=== PATIENT | male | born 1930 | race Caucasian/White ===

== ENCOUNTER 2018-04-13 04:44 | Observation (INO) | payer OTHER ==
--- OUTSIDE RECORDS SUMMARY | 2018-04-13 04:46 | XMS REPORT | Clinical Summary ---
:1930 Author Organization [facility] Address [address] [place] [address] Phone Care Team Providers Name Role Phone Unavailable Primary Care Provider Unavailable Allergies Active Allergy Reactions Severity Noted Date Comments Ciprofloxacin Rash Low 10/06/2016 Codeine Rash Low 10/06/2016 Current Medications Prescription Sig. Disp. Refills Start End Date Status Date simvastatin (ZOCOR) Take 20 mg by Active 20 MG tablet mouth nightly. dextromethorphan-av Take 1 capsule by Active nidine (NUEDEXTA) mouth once in 20-10 mg Cap morning. memantine (NAMENDA Take 1 capsule by Active XR) 28 mg CSpX mouth daily. aspirin 325 MG EC Take 325 mg by Active tablet mouth daily. omega-3 fatty Take 1 capsule by Active acids-vitamin E mouth nightly . 1,000 mg Cap cinnamon bark 500 mg Take 500 mg by Active capsule mouth daily. cholecalciferol Take 1,000 Units Active (VITAMIN D3) 1,000 by mouth daily. unit tablet VIT Take 1 capsule by Active C/E/ZN/COPPR/LUTEIN/ mouth nightly. ZEAXAN (PRESERVISION AREDS 2 ORAL) solifenacin Take 10 mg by Active (VESICARE) 10 MG mouth daily . tablet midodrine Take 5 mg by Active (PROAMATINE) 5 MG mouth every tablet evening. famotidine (PEPCID) Take 40 mg by Active 40 MG tablet mouth daily. midodrine Take 2.5 mg by Active (PROAMATINE) 2.5 MG mouth 2 (two) tablet times daily. sertraline (ZOLOFT) Take 50 mg by 12/23/19 Discontinued 50 MG tablet mouth nightly . 18 famotidine (PEPCID) Take 20 mg by 12/23/19 Discontinued 20 MG tablet mouth nightly. 18 midodrine Take 7.5 mg by 12/23/19 Discontinued (PROAMATINE) 5 MG mouth 2 (two) 18 tablet times daily . traMADol (ULTRAM) 50 Take 1 tablet (50 30 tablet 0 01/03/20 mg tablet mg total) by 8 18 mouth every 6 (six) hours as needed for Pain for up to 10 days. Max Daily Amount: 200 mg bisacodyl (DULCOLAX) Take 1 tablet (5 30 tablet 0 01/24/20 5 mg EC tablet mg total) by 8 18 mouth daily as needed for Constipation for up to 30 days. sulfamethoxazole-tri Take 1 tablet 6 tablet 0 12/27/19 methoprim (BACTRIM (160 mg of 8 18 DS) 800-160 mg per trimethoprim tablet total) by mouth 2 (two) times daily for 3 days. Active Problems Problem Noted Date Bladder tumor 10/28/2016 Encounters Date Type Specialty Care Team Description 12/24/2017 Hospital Encounter Osmel Enriquez MD 12/24/2017 Procedure Pass 12/24/2017 Surgery Osmel Enriquez CYSTOSCOPYJEEVAN MD LIGHT CYSVIEW 12/23/2017 Hospital Encounter Pre-Admission Testing 12/23/2017 Anesthesia Event Gabriel Alexander MD 04/23/2017 Procedure Pass after 04/12/2017 Social History Tobacco Use Types Packs/Day Years Used Date Former Smoker Quit: 11/08/1959 Smokeless Tobacco: Never Used Alcohol Use Drinks/Week oz/Week Comments No Sex Assigned at Date Recorded Not on file Last Filed Vital Signs Vital Sign Reading Time Taken Blood Pressure 146/82 12/24/2017 1:30 PM SCRAP CHARGER Pulse 58 12/24/2017 1:30 PM SCRAP CHARGER Temperature 36.3 C (97.3 F) 12/24/2017 12:37 PM SCRAP CHARGER Respiratory Rate 18 12/24/2017 1:30 PM SCRAP CHARGER Oxygen Saturation 95% 12/24/2017 1:30 PM SCRAP CHARGER Inhaled Oxygen Concentration - - Weight 89.8 kg (198 lb) 12/24/2017 9:48 AM SCRAP CHARGER Height 177.8 cm (5' 10") 12/24/2017 9:48 AM SCRAP CHARGER Body Mass Index 28.41 12/24/2017 9:48 AM SCRAP CHARGER Plan of Treatment Not on file Procedures Procedure Name Priority Date/Time Associated Diagnosis Comments CYSTOSCOPY,TURBT 12/24/2017 11:05 AM SCRAP CHARGER Malignant neoplasm of urinary bladder, unspecified site (HCC) Case Notes PER [facility] TO USE RM 1 Special Needs (CONSIDER SPINAL ANESTHESIA) CYSTOSCOPY,BLADDER BIOPSY 12/24/2017 11:05 AM SCRAP CHARGER Malignant neoplasm of urinary bladder, unspecified site (HCC) Case Notes PER [facility] TO USE RM 1 Special Needs (CONSIDER SPINAL ANESTHESIA) CYSTOSCOPY,BLUE LIGHT CYSVIEW 12/24/2017 11:05 AM SCRAP CHARGER Malignant neoplasm of urinary bladder, unspecified site (HCC) Case Notes PER [facility] TO USE RM 1 Special Needs (CONSIDER SPINAL ANESTHESIA) after 04/12/2017 Results Tissue Exam (12/24/2017 11:50 AM) Component Value Ref Range Case Report Surgical Pathology Report Case: [id number] Authorizing Provider:Osmel Enriquez MDCollected: 12/24/2017 1150 Order[facility] Location: [facility] Received: 12/24/2017 1341 SERVICES Pathologist: Bayron [place] MD Specimens: A) - Bladder Tumor, LEFT BLADDER NECK 2 O'CLOCK B) - Bladder Biopsy, POSTERIOR MIDLINE BIOPSY C) - Bladder Biopsy, Left Wall, LEFT LATERAL WALL LOW, FROM THE PREVIOUSBIOPSY SITE D) - Bladder Biopsy, Left Wall, LEFT LATERAL WALL E) - Bladder Biopsy, Right Wall, RIGHT LATERAL WALL F) - Bladder Biopsy, Dome, BLADDER DOME G) - Bladder Biopsy, Trigone, TRIGONE DIAGNOSIS A. 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 URINARY BLADDER, POSTERIOR MIDLINE, BIOPSY: - CHRONIC INFLAMMATION AND REACTIVE UROTHELIAL CHANGES - NEGATIVE FOR DYSPLASIA OR MALIGNANCY C. URINARY BLADDER, LEFT LATERAL WALL PREVIOUS BIOPSY SITE, BIOPSY: - CHRONIC INFLAMMATION AND REACTIVE UROTHELIAL CHANGES - NEGATIVE FOR DYSPLASIA OR MALIGNANCY D. URINARY BLADDER, LEFT LATERAL WALL, BIOPSY: - MILD CHRONIC INFLAMMATION - NEGATIVEFOR DYSPLASIA OR MALIGNANCY E.URINARY BLADDER, RIGHT LATERAL WALL, BIOPSY: - CHRONIC INFLAMMATION AND REACTIVE UROTHELIAL CHANGES - NEGATIVE FOR DYSPLASIA OR MALIGNANCY F.URINARY BLADDER, DOME, BIOPSY: - CHRONIC INFLAMMATION AND REACTIVE UROTHELIAL CHANGES - NEGATIVE FOR DYSPLASIA OR MALIGNANCY G.URINARY BLADDER, TRIGONE, BIOPSY: - CHRONIC INFLAMMATION AND REACTIVE UROTHELIAL CHANGES - NEGATIVE FOR DYSPLASIA OR MALIGNANCY Signing Pathologist Direct Phone Line: [phone] CPT Code(s) 33030 X 2, 34486 CLINICAL HISTORY Malignant neoplasm of urinary bladder SPECIMEN SOURCE A. Left bladder neck 2:00 biopsy; B. Posterior midline bladder biopsy; D. Left lateral wall low from the previous biopsy site bladder biopsy; D. Left lateral wall bladder biopsy; E. Right lateral wall bladder biopsy; F. Bladder dome biosy; G. Trigone biopsy GROSS DESCRIPTION Specimen A: Received in formalin labeled "left bladder neck 2:00 tumor" are three irregular pink-lee to reilly-white rubbery fragments of soft tissue measuring 1.1 x 0.8 x 0.3 cm in aggregate. The specimen is entirely submitted in cassette A1. Specimen B: Received in formalin labeled "posterior midline bladder biopsy" is a single fragment measuring 0.3 cm in greatest dimension. Entirely submitted B1. Specimen C: Received in formalin labeled "left lateral wall low from the previous biopsy site bladder biopsy" is a single fragment measuring 0.2 cm in greatest dimension. Entirely submitted C1. Specimen D: Received in formalin labeled "left lateral wall bladder biopsy" is a single fragment measuring 0.4 cm in greatest dimension. Entirely submitted D1. Specimen E: Received in formalin labeled "right lateral wall bladder biopsy" is a single fragment measuring 0.2 cm in greatest dimension. Entirely submitted E1. Specimen F: Received in formalin labeled "bladder biopsy, dome" is a single fragment measuring 0.5 cm in greatest dimension. Entirely submitted F1. Specimen G: Received in formalin labeled "bladder biopsy, trigone" is a single fragment measuring 0.2 cm in greatest dimension. Entirely submitted G1. DB/pl MICROSCOPIC DESCRIPTION A-G: Performed. Specimen Performing Laboratory Tissue - Bladder Tumor; Tissue - Bladder [facility] Biopsy; Tissue - Bladder Biopsy, Left [address] [place] [address] Wall; Tissue - Bladder Biopsy, Right Wall; [place] [address] Tissue - Bladder Biopsy, Dome; Tissue - Bladder Biopsy, Trigone after 04/12/2017
--- OUTSIDE RECORDS SUMMARY | 2018-04-13 04:46 | XMS REPORT ---
:1930 [facility] Address [address] [place] [address] Dr. Lozano [address] [place] [id number] Care Team Providers Name Role Phone JUAN FRANCISCO ENRIQUEZ Unavailable Unavailable Problems This patient has no known problems. Allergies, Adverse Reactions, Alerts This patient has no known allergies or adverse reactions. Medications This patient has no known medications. Results Test Description Test Time Test Comments Text Results Atomic Results Result Comments TISSUE EXAM 2017-12-27 15:21:00 Surgical Pathology Report Case: [id number] Authorizing Provider: Juan Francisco Enriquez MD Collected: 12/24/2017 1150 Ordering Location: [facility] Received: 12/24/2017 1341 SERVICES Pathologist: Bayron [place] MD Specimens: A) - Bladder Tumor, LEFT BLADDER NECK 2 O'CLOCK B) - Bladder Biopsy, POSTERIOR MIDLINE BIOPSY C) - Bladder Biopsy, Left Wall, LEFT LATERAL WALL LOW, FROM THE PREVIOUS BIOPSY SITE D) - Bladder Biopsy, Left Wall, LEFT LATERAL WALL E) - Bladder Biopsy, Right Wall, RIGHT LATERAL WALL F) - Bladder Biopsy, Dome, BLADDER DOME G) - Bladder Biopsy, Trigone, TRIGONE A. URINARY BLADDER, LEFT NECK 2 O'CLOCK, TURBT:- PAPILLARY UROTHELIAL CARCINOMA, HIGH GRADE (WHO GRADE 3), NONINVASIVE- ADJACENT UROTHELIAL CARCINOMA IN SITU- MUSCULARIS PROPRIA IS PRESENTB. URINARY BLADDER, POSTERIOR MIDLINE, BIOPSY:- CHRONIC INFLAMMATION AND REACTIVE UROTHELIAL CHANGES- NEGATIVE FOR DYSPLASIA OR MALIGNANCYC. URINARY BLADDER, LEFT LATERAL WALL PREVIOUS BIOPSY SITE, BIOPSY:- CHRONIC INFLAMMATION AND REACTIVE UROTHELIAL CHANGES- NEGATIVE FOR DYSPLASIA OR MALIGNANCYD. URINARY BLADDER, LEFT LATERAL WALL, BIOPSY:- MILD CHRONIC INFLAMMATION- NEGATIVE FOR DYSPLASIA OR MALIGNANCYE. URINARY BLADDER, RIGHT LATERAL WALL, BIOPSY:- CHRONIC INFLAMMATION AND REACTIVE UROTHELIAL CHANGES- NEGATIVE FOR DYSPLASIA OR MALIGNANCYF. URINARY BLADDER, DOME, BIOPSY:- CHRONIC INFLAMMATION AND REACTIVE UROTHELIAL CHANGES- NEGATIVE FOR DYSPLASIA OR MALIGNANCYG. URINARY BLADDER, TRIGONE, BIOPSY:- CHRONIC INFLAMMATION AND REACTIVE UROTHELIAL CHANGES- NEGATIVE FOR DYSPLASIA OR MALIGNANCY Signing Pathologist Direct Phone Line: [phone] signed by Bayron [place] MD on 12/27/2017 at 3:21 [id number] X 6, [id number] neoplasm of urinary bladderA. Left bladder neck 2:00 biopsy; B. Posterior midline bladder biopsy; D. Left lateral wall low from the previous biopsy site bladder biopsy; D. Left lateral wall bladder biopsy; E. Right lateral wall bladder biopsy; F. Bladder dome biosy; G. Trigone biopsySpecimen A: Received in formalin labeled "left bladder [...] 0.2 cm in greatest dimension. Entirely submitted E1.Specimen F: Received in formalin labeled "bladder biopsy, dome" is a single fragment measuring 0.5 cm in greatest dimension. Entirely submitted F1. Specimen G: Received in formalin labeled "bladder biopsy, trigone" is a single fragment measuring 0.2 cm in greatest dimension. Entirely submitted G1. DB/Raudel-G: Performed. URINE CULTURE 2017-02-06 11:41:00 Test Item Value Reference Range Comments CULTURE (BEAKER) (test lfnp=5867) See comment <10,000 col/mL Gram Negative Ro50-59,000 col/mL skin floraCOMPREHENSIVE METABOLIC [id number] 16:04:00 Test Item Value Reference Range Comments TOTAL PROTEIN (BEAKER) 7.4 gm/dL 6.0-8.3 (test trqp=776) ALBUMIN (BEAKER) (test 3.9 g/dL 3.5-5.0 ggrv=8393) ALKALINE PHOSPHATASE 76 U/L 40-150 (BEAKER) (test ckfl=567) BILIRUBIN TOTAL (BEAKER) 0.9 mg/dL 0.2-1.2 (test jooy=046) SODIUM (BEAKER) (test 140 meq/L 136-145 zhkh=563) POTASSIUM (BEAKER) (test 4.1 meq/L 3.5-5.1 zxbb=479) CHLORIDE (BEAKER) (test 104 meq/L 98-107 rokq=610) CO2 (BEAKER) (test 26 meq/L 22-29 tchu=071) BLOOD UREA NITROGEN 21 mg/dL 7-21 (BEAKER) (test ikdz=161) CREATININE (BEAKER) (test 1.40 mg/dL 0.57-1.25 omtq=532) GLUCOSE RANDOM (BEAKER) 147 mg/dL 70-105 (test bclt=177) CALCIUM (BEAKER) (test 9.0 mg/dL 8.4-10.2 wnaz=039) AST (SGOT) (BEAKER) (test 20 U/L 5-34 aafp=219) ALT (SGPT) (BEAKER) (test 16 U/L 6-55 cuag=666) EGFR (BEAKER) (test 48 mL/min/1.73 sq m ESTIMATED GFR IS NOT xxuh=6389) ACCURATE CREATININE CLEARANCE IN PREDICTING GLOMERULAR FILTRATION RATE. ESTIMATED GFR IS NOT APPLICABLE FOR DIALYSIS PATIENTS. CBC W/PLT COUNT & AUTO [id number] 15:55:00 Test Item Value Reference Range Comments WHITE BLOOD CELL COUNT (BEAKER) (test wzpt=635) 8.7 K/ L 4.0-10.0 RED BLOOD CELL COUNT (BEAKER) (test inwn=966) 4.86 M/ L 4.20-5.80 HEMOGLOBIN (BEAKER) (test lcgo=737) 15.2 GM/DL 13.0-16.8 HEMATOCRIT (BEAKER) (test ldst=377) 45.2 % 40.0-50.0 MEAN CORPUSCULAR VOLUME (BEAKER) (test cpmz=795) 93.1 fL 82.0-98.0 MEAN CORPUSCULAR HEMOGLOBIN (BEAKER) (test 31.2 pg 27.0-33.0 hmiz=191) MEAN CORPUSCULAR HEMOGLOBIN CONC (BEAKER) (test 33.5 GM/DL 32.0-36.0 tlmh=069) RED CELL DISTRIBUTION WIDTH (BEAKER) (test 12.3 % 10.3-14.2 beko=032) PLATELET COUNT (BEAKER) (test atod=537) 151 K/CU MM 150-430 MEAN PLATELET VOLUME (BEAKER) (test jync=132) 7.0 fL 6.5-10.5 NUCLEATED RED BLOOD CELLS (BEAKER) (test 0 /100 WBC 0-0 qsal=213) NEUTROPHILS RELATIVE PERCENT (BEAKER) (test 67 % jtvj=454) LYMPHOCYTES RELATIVE PERCENT (BEAKER) (test 22 % ntlw=109) MONOCYTES RELATIVE PERCENT (BEAKER) (test 10 % digk=210) EOSINOPHILS RELATIVE PERCENT (BEAKER) (test 1 % tvsb=354) BASOPHILS RELATIVE PERCENT (BEAKER) (test 0 % ouro=498) NEUTROPHILS ABSOLUTE COUNT (BEAKER) (test 5.86 K/ L 1.80-8.00 xdxd=961) LYMPHOCYTES ABSOLUTE COUNT (BEAKER) (test 1.88 K/ L 1.48-4.50 yesf=459) MONOCYTES ABSOLUTE COUNT (BEAKER) (test 0.84 K/ L 0.00-1.30 ikaj=721) EOSINOPHILS ABSOLUTE COUNT (BEAKER) (test 0.12 K/ L 0.00-0.50 whdf=376) BASOPHILS ABSOLUTE COUNT (BEAKER) (test 0.03 K/ L 0.00-0.20 khhn=842) [id number] 15:54:00 Test Item Value Reference Range Comments PARTIAL THROMBOPLASTIN TIME (BEAKER) (test 32.3 seconds 22.5-36.0 jwof=257) PROTHROMBIN TIME/[id number] 15:53:00 Test Item Value Reference Range Comments PROTIME (BEAKER) (test okch=580) 14.7 seconds 11.7-14.7 INR (BEAKER) (test oxch=192) 1.2 <=5.9 RECOMMENDED COUMADIN/WARFARIN INR THERAPY RANGESSTANDARD DOSE: 2.0 - 3.0 Includes: PROPHYLAXIS forvenous thrombosis, systemic embolization; TREATMENT for venous thrombosis and/or pulmonary embolus.HIGH RISK: Target INR is 2.5-3.5 for patients with mechanical heart valves.URINALYSIS W/ [id number] 15 :40:00 Test Item Value Reference Range Comments COLOR (BEAKER) (test nzkj=344) Yellow CLARITY (BEAKER) (test atfe=001) Clear SPECIFIC GRAVITY UA (BEAKER) (test iqqe=888) 1.017 1.001-1.035 PH UA (BEAKER) (test kmdu=547) 6.5 5.0-8.0 PROTEIN UA (BEAKER) (test cbgp=967) Negative Negative GLUCOSE UA (BEAKER) (test hyma=063) Negative Negative KETONES UA (BEAKER) (test ckic=780) Negative Negative BILIRUBIN UA (BEAKER) (test oopr=791) Negative Negative BLOOD UA (BEAKER) (test vkjw=906) Negative Negative NITRITE UA (BEAKER) (test itrr=557) Negative Negative LEUKOCYTE ESTERASE UA (BEAKER) (test ksca=855) Trace Negative UROBILINOGEN UA (BEAKER) (test zzjr=892) 3.0 mg/dL 0.2-1.0 RBC UA (BEAKER) (test brzm=139) 1 /HPF WBC UA (BEAKER) (test hyle=821) 2 /HPF SQUAMOUS EPITHELIAL (BEAKER) (test rozb=070) < /HPF SOURCE(BEAKER) (test nebd=1000)
[2018-04-13 07:21] LABS: Absolute Lymphocytes (CBC) 1.6 K/uL (0.7-4.9); Absolute Monocytes 0.2 K/uL (0.1-1.3); Absolute Neutrophil 5.9 K/uL (1.8-8.0); Basophils % 0.5 % (0-1.3); Eosinophils % 0.9 % (0-4.4); Hematocrit 40.6 % (39.6-49.0); Lymphocytes % 20.7 % (15.3-44.8); MCH 31.8 pg (27.0-35.0); MCV 92.5 fL (80-100); MPV 8.4 fL (7.6-11.3); Monocytes % 3.1 % (3.3-12.3); RBC Red Blood Cell Count 4.39 M/uL (4.33-5.43)
[2018-04-13 07:28] LABS: Urine Blood TRACE (NEG); Urine Glucose NEGATIVE (NEG); Urine Protein NEGATIVE (NEG); Urine Specific Gravity 1.015 (1.005-1.030)
[2018-04-13 07:33] LABS: Urine Bacteria <20 /HPF (NONE SEEN); Urine Culture Reflex Order REFLEXED; Urine RBC NONE SEEN /HPF (NONE SEEN)
[2018-04-13 08:10] LABS: Potassium 4.5 mEq/L (3.6-5.0)
[2018-04-13 08:17] LABS: Albumin 3.8 g/dL (3.2-5.5); Bilirubin Direct 0.3 mg/dL (0-0.2); Bilirubin Total 1.6 mg/dL (0.3-1.2); Magnesium 2.1 mg/dL (1.8-2.5)
--- NOTE | 2018-04-13 08:42 | EKG ---
Test Date: 2018-04-13 Test Time: 06:51:16 Ground Worker: ADRIA MEASUREMENT RESULTS: Intervals: Rate: 63 CT: 166 QRSD: 78 QT: 434 QTc: 444 [place]: P: 102 CT: 166 QRS: -13 T: 48 INTERPRETIVE STATEMENTS: Sinus rhythm with premature atrial complexes in a pattern of bigeminy Nonspecific ST abnormality Abnormal ECG Compared to ECG 07/02/2017 19:43:00 Atrial premature complex(es) now present ST (T wave) deviation now present Sinus bradycardia no longer present Left-axis deviation no longer present Electronically Signed On 04-13-18 08:41:49 CDT by Fernando Suarez
--- NOTE | 2018-04-13 08:58 | RAD REPORT ---
EXAM DESCRIPTION: [facility] Single View04/13/2018 7:16 am CLINICAL HISTORY: Abdominal pain COMPARISON: June 2017 FINDINGS: Areas of scarring are present within the lung bases. The lungs appear clear of acute infiltrate. The heart is normal size IMPRESSION: No acute abnormalities displayed
--- NOTE | 2018-04-13 10:00 | RAD REPORT ---
EXAM DESCRIPTION: CT - Abdomen Pelvis W Contrast - 04/13/2018 9:42 am CLINICAL HISTORY: Abdominal pain, abdominal distention, diarrhea, history of bladder cancer COMPARISON: Noncontrast CT study July 2016 TECHNIQUE: Biphasic, helical CT imaging of the abdomen and pelvis was performed following 100 ml non -ionic IV contrast. Oral contrast was given. All CT scans are performed using dose optimization technique as appropriate and may include automated exposure control or mA/KV adjustment according to patient size. FINDINGS: Fibrotic lung changes are present. There are calcified pleural plaques. An acute lung pare nchymal process is unlikely. No pericardial thickening or effusion. Small hiatal hernia is present. Liver has a slightly nodular contour. No suspicious liver lesions seen. Right lobe liver cysts are pr esent. Spleen has a few granulomatous calcifications. No acute pancreatic process. Gallbladder and bi liary tree are also without suspicious finding. Symmetric renal function is seen with no hydronephrosis or suspicious renal mass. No delay in renal f unction. No pyelonephritis or acute renal parenchymal process. Partially filled urinary bladder shows no gross acute process. Numerous surgical clips are present along the pelvic floor. Pelvic floor det ail is limited by the spray artifact from the right hip prosthesis. The no gastric dilatation or wall thickening. No acute small bowel finding. Patient has a large amoun t of stool distending the colon from cecum through sigmoid colon. The stool volume dilates the rectum . No focal mass or wall thickening. No free air, free fluid or inflammatory stranding. No hernia, m ass or bulky lymphadenopathy. No adrenal abnormality. Disc and bony degenerative change present in addition to the right hip prosthesis. Pathologic bone pr ocess is not suspected. Aorta is tortuous in the lower thorax and upper abdomen. Calcifications are scattered throughout the aorta. No aneurysm is present. 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 Aorta is unchanged from the 2016 MRI. This is not seen as an acute process. IMPRESSION: Large amount of stool present distending the colon from cecum to sigmoid and dilating th e colon in the rectum. No focal mass or acute wall thickening of the colon. No stomach or small bowel finding. No free air or surgically emergent finding.
[2018-04-13] MEDS ORDERED: FLEET ENEMA ADULT PR ONE (11:00)
[2018-04-13] MEDS ORDERED: MAGNESIUM CITRATE 300 ML BOT ONE (11:00)
[2018-04-13] MEDS ORDERED: NA CHLORIDE 0.9% 500 ML ONE (12:46)
--- NOTE | 2018-04-13 14:02 | ER ---
Nurse's Notes [facility] Name: Jere Jensen Age: 87 yrs Sex: Male : 1930 Arrival Date: 04/13/2018 Time: 04:48 Bed 18 Private MD: Bolivar Velez C Diagnosis: Fecal impaction Presentation: 04/13 05:35 Presenting complaint: Patient states: "I had bladder cancer treatment on Wednesday morning jd3 and on Wednesday evening I started to have painful diarrhea episodes. the stool is dark in color.". Transition of care: patient was not received from another setting of care. Onset of symptoms was April 11, 2018. Risk Assessment: Do you want to hurt yourself or someone else? Patient reports no desire to harm self or others. Initial Sepsis Screen: Does the patient meet any 2 criteria? No. Patient's initial sepsis screen is negative. Does the patient have a suspected source of infection? No. Patient's initial sepsis screen is negative. Care prior to arrival: None. 05:35 Method Of Arrival: Ambulatory jd3 05:35 Acuity: IZA 3 jd3 Historical: - Allergies: 05:46 Ciprofloxacin (rash); "like blisters on his feet" per son; jd3 05:46 Codeine; jd3 05:46 Milk/dairy products; jd3 - Home Meds: 05:46 solifenacin oral oral [Active]; simvastatin 20 mg Oral tab 1 tab bedtime [Active]; jd3 dextromethorphan HBr oral oral [Active]; memantine oral oral [Active]; Famotidine Oral [Active]; duloxetine oral oral [Active]; midodrine oral oral [Active]; aspirin 325 mg Oral tab 1 tab once daily [Active]; cranberry oral oral [Active]; Vitamin B-12 Oral [Active]; Vitamin D3 oral oral [Active]; Cinnamon oral oral [Active]; Fish Oil oral oral [Active]; Miralax Oral [Active]; 05:54 Carbidopa-Levodopa Oral 2 times per day [Active]; jd3 06:39 Nuplazid oral oral 2 tabs daily [Active]; jd3 - PMHx: 05:46 Cancer; Hyperlipidemia; hypotension; TIA; jd3 - PSHx: 05:46 right knee; Appendectomy; Hernia repair; Tonsillectomy; prostate sx; right hip sx; jd3 - Immunization history:: Adult Immunizations up to date. - Social history:: Smoking status: Patient/guardian denies using tobacco, the patient reports quitting approximately 30 years ago. - Ebola Screening: : Patient negative for fever greater than or equal to 101.5 degrees Fahrenheit, and additional compatible Ebola Virus Disease symptoms. Screenin:00 Abuse screen: Denies threats or abuse. Nutritional screening: No deficits noted. jd3 Tuberculosis screening: No symptoms or risk factors identified. Fall Risk Fall in past 12 months (25 points). No IV (0 pts). Gait- Normal/Bed Rest/Wheelchair (0 pts) Mental Status- Overestimates/Forgets Limitations (15 pts.). Total Montoya Fall Scale indicates Low Risk Score (25-44 pts). Fall prevention measures have been instituted. Side Rails Up X 2 Placed close to Nursing Station Frequent Obs/Assesments occuring Family Present and informed to notify staff if they need to leave bedside. Assessment: 05:48 General: Appears in no apparent distress. uncomfortable, Behavior is calm, cooperative, jd3 appropriate for age. Pain: Complains of pain in abdomen Pain currently is 0 out of 10 on a pain scale. at worst was 10 out of 10 on a pain scale. Quality of pain is described as pressure, sharp, Is intermittent. Neuro: Level of Consciousness is awake, alert, obeys commands, Oriented to person, place, time, situation, Appropriate for age. Cardiovascular: Heart tones S1 Capillary refill < 3 seconds Patient's skin is warm and dry. Respiratory: Airway is patent Respiratory effort is even, unlabored, Respiratory pattern is regular, symmetrical, Breath sounds are clear bilaterally. GI: Abdomen is round Bowel sounds present X 4 quads. Abd is soft and non tender X 4 quads. Reports lower abdominal pain, diarrhea, diarrhea reported to be dark in color. : No signs and/or symptoms were reported regarding the genitourinary system. Reports. EENT: No signs and/or symptoms were reported regarding the EENT system. Derm: Skin is intact, Skin is dry, Skin is normal, Skin temperature is warm. Musculoskeletal: Circulation, motion, and sensation intact. Range of motion: intact in all extremities. 07:11 Reassessment: CT notified pt finished PO contrast, spke with isabela. sg 07:21 General: Appears in no apparent distress. comfortable, Behavior is calm, cooperative, sv appropriate for age. Neuro: Level of Consciousness is awake, alert, obeys commands, Oriented to person, place, time, situation. Respiratory: Respiratory effort is even, unlabored, Respiratory pattern is regular, symmetrical. GI: Reports diarrhea. Derm: Skin is normal. 11:20 Reassessment: Patient appears in no apparent distress at this time. No changes from sv previously documented assessment. Patient and/or family updated on plan of care and expected duration. Pain level reassessed. Patient is alert, oriented x 3, equal unlabored respirations, skin warm/dry/pink. 11:45 Reassessment: Pt placed on bedside commode. sv 12:30 Reassessment: Patient appears in no apparent distress at this time. No changes from sv previously documented assessment. Patient and/or family updated on plan of care and expected duration. Pain level reassessed. Patient is alert, oriented x 3, equal unlabored respirations, skin warm/dry/pink. Pt placed on bedside commode. Pt has seeping stool noted. 13:02 Reassessment: Pt placed on bedpan. sv 13:42 Reassessment: Pt placed on bedpan. sv 14:58 Reassessment: Patient appears in no apparent distress at this time. No changes from sv previously documented assessment. Patient and/or family updated on plan of care and expected duration. Pain level reassessed. Patient is alert, oriented x 3, equal unlabored respirations, skin warm/dry/pink. Vital Signs: 05:46 BP 136 / 79; Pulse 75; Resp 18 S; Temp 98.2(O); Pulse Ox 97% on R/A; Weight 91.17 kg jd3 (R); Height 5 ft. 10 in. (177.80 cm) (R); Pain 0/10; 06:17 BP 159 / 80; Pulse 61; Resp 16 S; Pulse Ox 94% on R/A; Pain 0/10; jd3 07:21 BP 160 / 86; Pulse 62; Resp 18; Pulse Ox 96% ; sv 08:26 BP 122 / 68; Pulse 62; Resp 18; Pulse Ox 96% ; sv 09:00 BP 122 / 67; Pulse 55; Resp 18; Pulse Ox 96% on R/A; sv 13:01 BP 139 / 68; Pulse 60; Resp 20; Pulse Ox 96% ; sv 14:26 BP 105 / 89; Pulse 62; Resp 18; Pulse Ox 96% ; sv 05:46 Body Mass Index 28.84 (91.17 kg, 177.80 cm) jd3 ED Course: 04:48 Patient arrived in ED. es 04:48 Bolivar Velez MD is Private Physician. es 05:35 Omar Thomas, RN is Primary Nurse. jd3 05:37 Triage completed. jd3 05:47 Arm band placed on. jd3 06:01 Patient has correct armband on for positive identification. Bed in low position. Call j light in reach. Side rails up X2. Adult w/ patient. 06:16 Petros Bang PA is PHCP. cp 06:16 Manuelito Mckeon MD is Attending Physician. cp 07:04 Primary Nurse role handed off by Omar Thomas RN sv 07:04 Yohana Martines, RAF is Primary Nurse. sv 07:13 X-ray completed. Portable x-ray completed in exam room. Patient tolerated procedure kp1 well. 07:14 XRAY Chest (1 view) In Process Unspecified. EDMS 07:26 Awaiting lab results, Awaiting CT Scan. sv 07:30 Nirmal Jimenez MD is Attending Physician. cp 08:14 Lab(s) recollected, by me, sent to lab. mh5 08:40 Stool specimen sent to lab. mh5 09:41 CT Abd/Pelvis - W/Contrast: give oral contrast In Process Unspecified. EDMS 14:01 Bolivar Velez MD is Hospitalizing Provider. cp 14:57 No provider procedures requiring assistance completed. Patient admitted, IV remains in sv place. intact. Administered Medications: 11:21 Drug: Magnesium Citrate Liquid 300 ml Route: PO; sv 12:25 Follow up: Response: No adverse reaction sv 11:21 Drug: Fleet Enema 133 ml Route: MI; sv 12:24 Follow up: Response: No adverse reaction sv 12:49 Drug: NS 0.9% 250 ml Route: IV; Rate: bolus; Site: left antecubital; sv 14:56 Follow up: Response: No adverse reaction; IV Status: Completed infusion; IV Intake: sv 250ml 14:56 Drug: NS 0.9% 1000 ml Route: IV; Rate: 75 ml/hr; Site: left antecubital; sv 14:56 Follow up: Response: No adverse reaction; IV Status: Infusion continued upon admission sv Intake: 07:21 PO: 500ml (Contrast); Total: 500ml. sv 14:56 IV: 250ml; Total: 750ml. sv 07:[address] sv Outcome: 14:01 Decision to Hospitalize by Provider. cp 14:57 Admitted to Med/surg accompanied by tech, family with patient, via stretcher, room 429, sv with chart, Report called to Nona CARBONE 14:57 Condition: stable 14:57 Instructed on the need for admit. 15:25 Patient left the ED. sv Signatures: Dispatcher [employer] Yohnaa Witt RN RN Joseph Gupta RN RN sg Salyer, Petros Arreola PA PA cp Martinez, Edna 5 Mohinder, Reba 1 Omar Thomas RN RN jd3 Corrections: (The following items were deleted from the chart) 06:00 05:46 Home Meds: Carbidopa-Levodopa Oral; jd3 jd3 06:39 05:46 Home Meds: Nuplazid oral oral; jd3 jd3
--- NOTE | 2018-04-13 14:02 | EDPHYS ---
Physician Documentation [facility] Name: Jere Jensen Age: 87 yrs Sex: Male : 1930 Arrival Date: 04/13/2018 Time: 04:48 Bed 18 Private MD: Bolivar Velez C ED Physician Nirmal Jimenez HPI: 04/13 06:37 This 87 yrs old Male presents to ER via Ambulatory with complaints of cp Diarrhea. 06:37 The patient presents to the emergency department with diarrhea, that is continuous. cp Onset: The symptoms/episode began/occurred yesterday morning. Historical: - Allergies: 05:46 Ciprofloxacin (rash); "like blisters on his feet" per son; jd3 05:46 Codeine; jd3 05:46 Milk/dairy products; jd3 - Home Meds: 05:46 solifenacin oral oral [Active]; simvastatin 20 mg Oral tab 1 tab bedtime [Active]; jd3 dextromethorphan HBr oral oral [Active]; memantine oral oral [Active]; Famotidine Oral [Active]; duloxetine oral oral [Active]; midodrine oral oral [Active]; aspirin 325 mg Oral tab 1 tab once daily [Active]; cranberry oral oral [Active]; Vitamin B-12 Oral [Active]; Vitamin D3 oral oral [Active]; Cinnamon oral oral [Active]; Fish Oil oral oral [Active]; Miralax Oral [Active]; 05:54 Carbidopa-Levodopa Oral 2 times per day [Active]; jd3 06:39 Nuplazid oral oral 2 tabs daily [Active]; jd3 - PMHx: 05:46 Cancer; Hyperlipidemia; hypotension; TIA; jd3 - PSHx: 05:46 right knee; Appendectomy; Hernia repair; Tonsillectomy; prostate sx; right hip sx; jd3 - Immunization history:: Adult Immunizations up to date. - Social history:: Smoking status: Patient/guardian denies using tobacco, the patient reports quitting approximately 30 years ago. - Ebola Screening: : Patient negative for fever greater than or equal to 101.5 degrees Fahrenheit, and additional compatible Ebola Virus Disease symptoms. ROS: 06:40 Constitutional: Negative for body aches, chills, fever, poor PO intake. cp 06:40 Eyes: Negative for injury, pain, redness, and discharge. cp 06:40 ENT: Negative for drainage from ear(s), ear pain, sore throat, difficulty swallowing, difficulty handling secretions. 06:40 Cardiovascular: Negative for chest pain, edema, palpitations. 06:40 Respiratory: Negative for cough, shortness of breath, wheezing. 06:40 Abdomen/GI: Positive for abdominal pain, diarrhea, bowel incontinence, Negative for constipation, anorexia, dysphagia, black/tarry stool, rectal bleeding. 06:40 Back: Negative for pain at rest, pain with movement, radiated pain. 06:40 : Negative for urinary symptoms, flank pain, testicular pain 06:40 Skin: Negative for cellulitis, rash. 06:40 Neuro: Negative for altered mental status, headache, syncope, near syncope, weakness. 06:40 All other systems are negative. Exam: 06:55 Constitutional: The patient appears in no acute distress, alert, awake, cp non-diaphoretic, non-toxic, well developed, well nourished, uncomfortable. 06:55 Head/Face: Normocephalic, atraumatic. cp 06:55 Eyes: Periorbital structures: appear normal, Pupils: equal, round, and reactive to light and accomodation, Extraocular movements: intact throughout, Conjunctiva: normal, no exudate, no injection, Sclera: no appreciated abnormality, Lids and lashes: appear normal, bilaterally. 06:55 ENT: External ear(s): are unremarkable, Ear canal(s): are normal, clear, TM's: are normal, no evidence of bulging, no erythema, Nose: is normal, Mouth: Lips: moist, Oral mucosa: pink and intact, moist, Posterior pharynx: is normal, airway is patent, no erythema, no exudate, Voice: is normal. 06:55 Neck: ROM/movement: is normal, is supple, without pain, no range of motions limitations, no meningismus, no nuchal rigidity. 06:55 Chest/axilla: Inspection: normal, Palpation: is normal, no crepitus, no tenderness. 06:55 Cardiovascular: Rate: normal, Rhythm: regular. 06:55 Respiratory: the patient does not display signs of respiratory distress, Respirations: normal, no use of accessory muscles, no retractions, no splinting, no tachypnea, labored breathing, is not present, Breath sounds: are clear throughout, no decreased breath sounds, no stridor, no wheezing. 06:55 Abdomen/GI: Inspection: distension, that is mild, Bowel sounds: active, all quadrants, Palpation: soft, in all quadrants, mild abdominal tenderness, in the suprapubic area, right lower quadrant and left lower quadrant, rebound tenderness, is not appreciated, voluntary guarding, is not appreciated, involuntary guarding, is not appreciated. 06:55 Back: pain, is absent, ROM is normal. 06:55 Skin: cellulitis, is not appreciated, no rash present. 06:55 Neuro: Orientation: to person, place \\T\\ time. Mentation: lucid, able to follow commands, Cerebellar function: is grossly normal, Motor: moves all fours, strength is normal, Sensation: no obvious gross deficits. 06:58 ECG was reviewed by the Attending Physician. cp Vital Signs: 05:46 BP 136 / 79; Pulse 75; Resp 18 S; Temp 98.2(O); Pulse Ox 97% on R/A; Weight 91.17 kg jd3 (R); Height 5 ft. 10 in. (177.80 cm) (R); Pain 0/10; 06:17 BP 159 / 80; Pulse 61; Resp 16 S; Pulse Ox 94% on R/A; Pain 0/10; jd3 07:21 BP 160 / 86; Pulse 62; Resp 18; Pulse Ox 96% ; sv 08:26 BP 122 / 68; Pulse 62; Resp 18; Pulse Ox 96% ; sv 09:00 BP 122 / 67; Pulse 55; Resp 18; Pulse Ox 96% on R/A; sv 13:01 BP 139 / 68; Pulse 60; Resp 20; Pulse Ox 96% ; sv 14:26 BP 105 / 89; Pulse 62; Resp 18; Pulse Ox 96% ; sv 05:46 Body Mass Index 28.84 (91.17 kg, 177.80 cm) jd3 MDM: 06:24 Patient medically screened. cp 10:15 Data reviewed: vital signs, nurses notes, lab test result(s), EKG, radiologic studies, cp CT scan, plain films. 10:15 Test interpretation: by ED physician or midlevel provider: ECG, plain radiologic cp studies. 13:00 Physician consultation: A Agustin VARELA was called at 12:55, was contacted at 12:55, regarding admission, patient's condition, will call back. 13:45 Physician consultation: A Agustin VARELA was called at 13:45, regarding admission, to the telemetry unit. patient's condition, left message on voicemail. 04/13 06:36 Order name: Stool Culture cp 04/13 06:36 Order name: CDIFF; Complete Time: 12:36 04/13 06:36 Order name: Amylase, Serum; Complete Time: 08:48 cp 04/13 06:36 Order name: Basic Metabolic Panel; Complete Time: 08:48 cp 04/13 10:07 Interpretation: Normal except: GLUC 121; BUN 22; GFR 61. 04/13 06:36 Order name: CBC with Diff; Complete Time: 08:48 cp 04/13 08:48 Interpretation: Normal except: MCV 92.5; PLT 138; JANELL% 74.8; MN% 3.1. 04/13 06:36 Order name: Creatinine for Radiology; Complete Time: 08:48 cp 04/13 06:36 Order name: Hepatic Function; Complete Time: 08:48 cp 04/13 11:24 Interpretation: Normal except: BILIT 1.6; BILID 0.3. 04/13 06:36 Order name: Lipase; Complete Time: 08:48 cp 04/13 06:36 Order name: Urine Microscopic Only; Complete Time: 08:48 cp 04/13 06:36 Order name: Magnesium; Complete Time: 08:48 cp 04/13 07:08 Order name: Urine Dipstick--Ancillary (enter results); Complete Time: 08:48 em1 04/13 08:49 Interpretation: Normal except: UBLD TRACE. cp 04/13 07:35 Order name: Urine Culture EDMS 04/13 10:35 Order name: Occult Blood--Ancillary sv 04/13 06:36 Order name: IV Saline Lock; Complete Time: 07:09 cp 04/13 06:36 Order name: Labs collected and sent; Complete Time: 07:09 cp 04/13 06:36 Order name: Urine Dipstick-Ancillary (obtain specimen); Complete Time: 07:07 cp 04/13 06:36 Order name: CT Abd/Pelvis - W/Contrast: give oral contrast; Complete Time: 10:06 cp 04/13 12:37 Interpretation: Report reviewed. cp 04/13 06:36 Order name: XRAY Chest (1 view); Complete Time: 10:06 cp 04/13 06:36 Order name: EKG; Complete Time: 06:37 cp 04/13 06:36 Order name: EKG - Nurse/Tech; Complete Time: 07:09 cp 04/13 13:41 Order name: Diet Heart Healthy; Complete Time: 13:41 sv 04/13 14:13 Order name: CONS Physician Consult EDMS EC:58 Rate is 63 beats/min. Rhythm is regular. ND interval is normal. QRS interval is normal. cp QT interval is normal. No ST changes noted. Interpreted by me. Reviewed by me. Administered Medications: 11:21 Drug: Magnesium Citrate Liquid 300 ml Route: PO; sv 12:25 Follow up: Response: No adverse reaction sv 11:21 Drug: Fleet Enema 133 ml Route: ND; sv 12:24 Follow up: Response: No adverse reaction sv 12:49 Drug: NS 0.9% 250 ml Route: IV; Rate: bolus; Site: left antecubital; sv 14:56 Follow up: Response: No adverse reaction; IV Status: Completed infusion; IV Intake: sv 250ml 14:56 Drug: NS 0.9% 1000 ml Route: IV; Rate: 75 ml/hr; Site: left antecubital; sv 14:56 Follow up: Response: No adverse reaction; IV Status: Infusion continued upon admission sv Disposition: 16:20 Co-signature as Attending Physician, Nirmal Jimenez MD. rn Disposition: 04/13/18 14:01 Hospitalization ordered by Bolivar Velez for Observation. Preliminary diagnosis is Fecal impaction. - Bed requested for Telemetry/MedSurg (observation). - Status is Observation. sv - Condition is Stable. - Problem is new. - Symptoms are unchanged. UTI on Admission? No Signatures: Dispatcher [employer] [facility]W[place] Yohana Martines RN RN sv Woody, Diana, RN RN dw Nieto, Roman, MD MD rn Page, Corey, PA PA cp Davies, Jonathon, RN RN jd3 Corrections: (The following items were deleted from the chart) 06:00 05:46 Home Meds: Carbidopa-Levodopa Oral; jd3 jd3 06:37 06:37 Occult Blood+PA.LAB.BRZ ordered. EDMS EDMS 06:39 05:46 Home Meds: Nuplazid oral oral; jd3 jd3 14:50 14:01 Hospitalization Ordered by A Agustin VARELA for Observation. Preliminary diagnosis is dw Fecal impaction. Bed requested for Telemetry/MedSurg (observation). Status is Observation. Condition is Stable. Problem is new. Symptoms are unchanged. UTI on Admission? No. cp 15:25 14:50 04/13/2018 14:01 Hospitalization Ordered by A Agustin VARELA for Observation. sv Preliminary diagnosis is Fecal impaction. Bed requested for Telemetry/MedSurg (observation). Status is Observation. Condition is Stable. Problem is new. Symptoms are unchanged. UTI on Admission? No. dw
[2018-04-13] MEDS ORDERED: FLEET ENEMA ADULT PR PRN (14:13)
[2018-04-13 15:32] VITALS: O2SAT 96
[2018-04-13] MEDS: NA CHLORIDE 0.9% 1,000 ML IV SCH (16:30)
[2018-04-13] MEDS ORDERED: MINERAL OIL ENEMA 135 ML BTL PR SCH (18:00)
[2018-04-13] MEDS ORDERED: MAGNESIUM CITRATE 300 ML BOT PO SCH (18:00)
[2018-04-13] MEDS ORDERED: GOLYTELY 4000 ML PO SCH (18:00)
[2018-04-13 18:14] VITALS: BMI 28.8
[2018-04-13] MEDS: MINERAL OIL 30 ML UCUP PO SCH (21:00)
[2018-04-13] MEDS ORDERED: FAMOTIDINE 40 MG PO SCH (21:00)
[2018-04-13] MEDS ORDERED: SIMVASTATIN 20 MG PO SCH (21:00)
[2018-04-13] MEDS: LEVODOPA PO SCH (21:04)
[2018-04-13] MEDS: CARBIDOPA PO SCH (21:04)
[2018-04-13] MEDS: MIDODRINE HCL 5 MG PO SCH (21:05)
--- NOTE | 2018-04-14 01:42 | HP ---
Date of Admission: 04/13/2018 Chief Complaint: Abdominal pain and diarrhea. History Of Present Illness: This is an 87-year-old male patient with history of constipation who susannah es stool softener every other day or so and takes MiraLAX every day. He came into emergency room wit h abdominal pain and diarrhea problem. The patient described his abdominal pain as intermittent. No aggravating or relieving factor. No vomiting. No fever. No chills. He also has some diarrhea for last 3-4 days and describing as just liquid type of stool coming out of his rectum almost continuous ly, as describes and associated with incontinence problem, so brought him to the emergency room today. After he was evaluated in the ER, he was diagnosed as having severe constipation with so me fecal impaction problem and physician fast food sales assistant, who evaluated him in the emergency room, was not able to do any manual digital disimpaction and contacted me requesting admission to the hospital for treatment of this severe constipation problem. Medications: List reviewed. Review of Systems: GI: As mentioned above. All other systems reviewed and negative. Allergies: CODEINE, CIPRO, MILK OR MILK-CONTAINING PRODUCTS. Family History: Not pertinent. Social History: Prior history of smoking, not at present time. Use of alcohol negative. Past Surgical History: Prostatectomy, right hip surgery, appendectomy, arthroscopic knee surgery, he rnia repair, bladder surgery for bladder cancer. Past Medical History: Significant for hypertension, bladder cancer, prostate cancer, hyperlipidemia, osteoarthritis at multiple sites, gastroesophageal reflux disease, restless legs syndrome, impaired fasting glucose, depression, lumbar spinal stenosis, cervical spondylosis, orthostatic hypotension. Physical Examination: Vital Signs: Temperature 98, pulse 72, respiratory rate 26, blood pressure 176/85. Height 5 feet 10 inches. Weight 201 pounds. General: Awake, alert, oriented, not in distress. HEENT: Head atraumatic, normocephalic. Conjunctivae nonerythematous. Sclerae white. Mouth, no thr ush or edema noted. Ears/Nose, no mass, lesion, discharge noted. Neck: Supple. No JVD, lymph nodes, bruit, thyromegaly noted. Lungs: Bilateral good equal air entry. Clear to auscultation. No rhonchi. No rales. Heart: Normal heart sounds, no murmur or gallop. Abdomen: Soft. Bowel sounds normoactive. No guarding, rigidity, or distention. Minimum left lower quadrant tenderness without any rebound tenderness. Extremities: No leg edema. No calf tenderness. Skin: No rash, ulcer, cellulitis. Lymphatics: No lymph node enlargement in neck, supraclavicular, infraclavicular region. Neuro: No focal neurological deficit. Chest: Unremarkable. External Genitalia: Deferred. Rectal: Deferred. Diagnostic Data: Chest x-ray; no acute cardiopulmonary changes. CAT scan of his abdomen shows sever e constipation all the way from cecum to rectum and some distention of rectum. No evidence of any yessica wel obstruction or free air. EKG; no acute ST-T changes. Laboratory Data: White count 7.9, hemoglobin 13.9, platelets 138. Sodium 137, potassium 4.5, chlori de 102, bicarb 29. BUN 22, creatinine 1.13. Glucose 121. Magnesium 2.1. Liver function tests unre markable. Lipase 16. Urinalysis negative. Impression: 1.Severe constipation. 2.Hypertension. 3.Hyperlipidemia. 4.Prostate cancer. 5.Bladder cancer. 6.Gastroesophageal reflux disease. 7.Osteoarthritis, multiple sites. 8.Restless legs syndrome. 9.Orthostatic hypotension. 10.Impaired fasting glucose. 11.Depression. 12.Cervical spondylosis. 13.Lumbar spinal stenosis. Plan: Admit the patient to hospital for further evaluation and management of problems. The patient is appropriate for his home medications continued per order. We did try to give him water enema, but because of significant impaction, nurse was not able to advance the rectal tube. GI consultation moncada s been requested from Dr. Hermosillo, and he has given appropriate orders for further treatment of this c onstipation. I will see him tomorrow for followup. Details and plan of treatment discussed. DANIEL/MODL Voice ID: [id number]
[2018-04-14] MEDS: NA CHLORIDE 0.9% 1,000 ML IV SCH ×2 (04:29→17:27)
[2018-04-14] MEDS ORDERED: MAG PO SCH (09:00)
[2018-04-14] MEDS ORDERED: [UNRECOGNIZED DRUG - OTHER] PO SCH (09:00)
[2018-04-14] MEDS ORDERED: MEMANTINE HCL 28 MG PO SCH (09:00)
[2018-04-14] MEDS ORDERED: CHOLECALCIFEROL 5000 UNIT PO SCH (09:00)
[2018-04-14] MEDS ORDERED: DULOXETINE HCL 30 MG PO SCH (09:00)
[2018-04-14] MEDS ORDERED: NUEDEXTA PO SCH (09:00)
[2018-04-14] MEDS ORDERED: CALCIUM CARBONATE PO SCH (09:00)
[2018-04-14] MEDS ORDERED: ASPIRIN PO SCH (09:00)
[2018-04-14] MEDS ORDERED: PIMAVANSERIN TARTRATE PO SCH (09:00)
[2018-04-14] MEDS ORDERED: SOLIFENACIN 10 MG PO SCH (09:00)
[2018-04-14] MEDS ORDERED: HOME MED 1 EA UNK (Cyanocobalamin (Vitamin B-12) [Vitamin B12] 2,500 MCG) PO SCH (09:00)
[2018-04-14] MEDS: MIDODRINE HCL 5 MG PO SCH ×2 (10:33→15:44)
[2018-04-14] MEDS: LEVODOPA PO SCH (10:34)
[2018-04-14] MEDS: CARBIDOPA PO SCH (10:34)
[2018-04-14] MEDS: MINERAL OIL 30 ML UCUP PO SCH ×2 (10:37→15:44)
--- NOTE | 2018-04-14 15:14 | RAD REPORT ---
EXAM DESCRIPTION: RAD - Colon Barium Enema - 04/14/2018 3:04 pm CLINICAL HISTORY: Abdominal pain, change in bowel habits COMPARISON: None. FINDINGS: A Gastrografin enema, single column, was performed. The entire colon was filled with gastric grafting contrast. There is redundancy of the colon seen par ticularly in the sigmoid colon. No annular constricting lesion or polypoid defect is identified. IMPRESSION: Colonic redundancy without additional abnormality discerned
[2018-04-14 15:54] VITALS: BP 142/74; TEMP 98.5
--- NOTE | 2018-04-17 16:39 | DS ---
Date of Discharge: 04/14/2018 Disposition: Discharged to go home. Physical Examination: HEENT: Unremarkable. Lungs: Clear to auscultation. Heart: Sounds normal. Abdomen: Soft. Bowel sounds normal. No guarding, rigidity, tenderness, or distention. Extremities: No leg edema. Hospital Course: An 87-year-old male patient, who was admitted to the hospital with abdominal pain a nd diarrhea. Please see dictated H and P for more information. The patient was evaluated and admitt ed to the hospital with severe constipation. His evaluation done in emergency room revealed the rout ine labs, chest x-ray, which was unremarkable. CAT scan of the abdomen showing severe constipation a ll the way from cecum to rectum with distention of rectum. No evidence of bowel obstruction. GI con sultation was obtained from Dr. Hermosillo. With the treatment that he ordered with help of enema and Go LYTELY, the patient's constipation problem resolved and we were able to discharge him to go home in s table condition with outpatient followup with Dr. Velez and Dr. Hermosillo. The patient was instructed to follow with Dr. Hermosillo in 1-2 weeks and follow up at my office per his schedule appointment. Discharge Medications: Continue all prior home medication, except stop stool softener that you were taking and start to take Senokot-S 2 tablets by mouth 2 times a day and take MiraLAX 2 times a day. Final Diagnoses: 1.Severe constipation. 2.Hypertension. 3.Hyperlipidemia. 4.Prostate cancer. 5.Bladder cancer. 6.Gastroesophageal reflux disease. 7.Osteoarthritis, multiple sites. 8.Restless legs syndrome. 9.Orthostatic hypotension. 10.Impaired fasting glucose. 11.Depression. 12.Cervical spondylosis. 13.Lumbar spinal stenosis. DANIEL/MODL Voice ID: [id number] Report ID: [id number]
== END 2018-04-14 17:51 | disposition home or self-care (01) ==
LOC: ER 04:44 → ERHOLD 14:09 → 4TH 15:01
PROVIDERS: ADMIT Internal Medicine; ATTEND Internal Medicine
DX: K59.00 Constipation, unspecified (principal); I10 Essential (primary) hypertension; E78.5 Hyperlipidemia, unspecified; Z85.46 Personal history of malignant neoplasm of prostate; Z85.51 Personal history of malignant neoplasm of bladder; K21.9 Gastro-esophageal reflux disease without esophagitis; M19.90 Unspecified osteoarthritis, unspecified site; G25.81 Restless legs syndrome; I95.1 Orthostatic hypotension; F32.9 Major depressive disorder, single episode, unspecified; M47.892 Other spondylosis, cervical region; M48.061 Spinal stenosis, lumbar region without neurogenic claudication
CPT/HCPCS: 36415; 71045; 74177; 74270; 80048; 80076; 82150; 82272; 83690; 83735; 85025; 87045; 87046; 87086; 87088; 87493; 93005; 96360; 96361; 99285; G0378 ×2; J7030 ×2; Q9967; 81003; 81015

== ENCOUNTER 2018-05-19 10:03 | Observation (INO) | payer OTHER ==
--- OUTSIDE RECORDS SUMMARY | 2018-05-19 10:05 | XMS REPORT ---
:1930 [facility] Address [address] [place] [address] Dr. Lozano [address] [place] [id number] Care Team Providers Name Role Phone JUAN FRANCISCO ENRIQUEZ Unavailable Unavailable Problems This patient has no known problems. Allergies, Adverse Reactions, Alerts This patient has no known allergies or adverse reactions. Medications This patient has no known medications. Results Test Description Test Time Test Comments Text Results Atomic Results Result Comments TISSUE EXAM 2017-12-27 15:21:00 Surgical Pathology Report Case: [id number] Authorizing Provider: Juan Francisco Enriquez MD Collected: 12/24/2017 1150 Ordering Location: [facility] Received: 12/24/2017 1341 SERVICES Pathologist: Bayron [...] OR MALIGNANCY Signing Pathologist Direct Phone Line: [phone] signed by Bayron Crystal MD on 12/27/2017 at 3:21 [id number] X [id number], [id number] neoplasm of urinary bladderA. Left bladder neck [...] Value Reference Range Comments CULTURE (BEAKER) (test smvi=3712) See comment <10,000 col/mL Gram Negative Ro50-59,000 col/mL skin floraCOMPREHENSIVE METABOLIC [id number] 16:04:00 Test Item Value Reference Range Comments TOTAL PROTEIN (BEAKER) 7.4 gm/dL 6.0-8.3 (test unjf=748) ALBUMIN (BEAKER) (test 3.9 g/dL 3.5-5.0 xkvp=0530) ALKALINE PHOSPHATASE 76 U/L 40-150 (BEAKER) (test kbww=648) BILIRUBIN TOTAL (BEAKER) 0.9 mg/dL 0.2-1.2 (test qzyz=300) SODIUM (BEAKER) (test 140 meq/L 136-145 fxrc=518) POTASSIUM (BEAKER) (test 4.1 meq/L 3.5-5.1 lltx=699) CHLORIDE (BEAKER) (test 104 meq/L 98-107 tgcv=684) CO2 (BEAKER) (test 26 meq/L 22-29 vwbp=511) BLOOD UREA NITROGEN 21 mg/dL 7-21 (BEAKER) (test bjxt=557) CREATININE (BEAKER) (test 1.40 mg/dL 0.57-1.25 qvda=618) GLUCOSE RANDOM (BEAKER) 147 mg/dL 70-105 (test toam=687) CALCIUM (BEAKER) (test 9.0 mg/dL 8.4-10.2 wnha=058) AST (SGOT) (BEAKER) (test 20 U/L 5-34 wjvc=295) ALT (SGPT) (BEAKER) (test 16 U/L 6-55 jxrp=140) EGFR (BEAKER) (test 48 mL/min/1.73 sq m ESTIMATED GFR IS NOT elnd=2291) ACCURATE CREATININE CLEARANCE IN PREDICTING GLOMERULAR FILTRATION RATE. ESTIMATED GFR IS NOT APPLICABLE FOR DIALYSIS PATIENTS. CBC W/PLT COUNT & AUTO [id number] 15:55:00 Test Item Value Reference Range Comments WHITE BLOOD CELL COUNT (BEAKER) (test mtdc=965) 8.7 K/ L 4.0-10.0 RED BLOOD CELL COUNT (BEAKER) (test mebb=563) 4.86 M/ L 4.20-5.80 HEMOGLOBIN (BEAKER) (test uynf=709) 15.2 GM/DL 13.0-16.8 HEMATOCRIT (BEAKER) (test ysvb=227) 45.2 % 40.0-50.0 MEAN CORPUSCULAR VOLUME (BEAKER) (test vtfn=494) 93.1 fL 82.0-98.0 MEAN CORPUSCULAR HEMOGLOBIN (BEAKER) (test 31.2 pg 27.0-33.0 hhbe=804) MEAN CORPUSCULAR HEMOGLOBIN CONC (BEAKER) (test 33.5 GM/DL 32.0-36.0 nkif=060) RED CELL DISTRIBUTION WIDTH (BEAKER) (test 12.3 % 10.3-14.2 gkpr=270) PLATELET COUNT (BEAKER) (test jpkz=271) 151 K/CU MM 150-430 MEAN PLATELET VOLUME (BEAKER) (test bmag=758) 7.0 fL 6.5-10.5 NUCLEATED RED BLOOD CELLS (BEAKER) (test 0 /100 WBC 0-0 qxsd=435) NEUTROPHILS RELATIVE PERCENT (BEAKER) (test 67 % dayd=062) LYMPHOCYTES RELATIVE PERCENT (BEAKER) (test 22 % razo=181) MONOCYTES RELATIVE PERCENT (BEAKER) (test 10 % lmzo=279) EOSINOPHILS RELATIVE PERCENT (BEAKER) (test 1 % bnxd=981) BASOPHILS RELATIVE PERCENT (BEAKER) (test 0 % pdaj=601) NEUTROPHILS ABSOLUTE COUNT (BEAKER) (test 5.86 K/ L 1.80-8.00 bnyr=593) LYMPHOCYTES ABSOLUTE COUNT (BEAKER) (test 1.88 K/ L 1.48-4.50 symr=878) MONOCYTES ABSOLUTE COUNT (BEAKER) (test 0.84 K/ L 0.00-1.30 icbw=706) EOSINOPHILS ABSOLUTE COUNT (BEAKER) (test 0.12 K/ L 0.00-0.50 zafy=271) BASOPHILS ABSOLUTE COUNT (BEAKER) (test 0.03 K/ L 0.00-0.20 itdw=175) [id number] 15:54:00 Test Item Value Reference Range Comments PARTIAL THROMBOPLASTIN TIME (BEAKER) (test 32.3 seconds 22.5-36.0 jhqs=552) PROTHROMBIN [id number] 15:53:00 Test Item Value Reference Range Comments PROTIME (BEAKER) (test qjma=479) 14.7 seconds 11.7-14.7 INR (BEAKER) (test rfcm=802) 1.2 <=5.9 RECOMMENDED COUMADIN/WARFARIN INR THERAPY RANGESSTANDARD DOSE: 2.0 - 3.0 Includes: PROPHYLAXIS forvenous thrombosis, systemic embolization; TREATMENT for venous thrombosis and/or pulmonary embolus.HIGH RISK: Target INR is 2.5-3.5 for patients with mechanical heart valves.URINALYSIS W/ [id number] 15 :40:00 Test Item Value Reference Range Comments COLOR (BEAKER) (test jnts=208) Yellow CLARITY (BEAKER) (test lqgg=033) Clear SPECIFIC GRAVITY UA (BEAKER) (test odpl=390) 1.017 1.001-1.035 PH UA (BEAKER) (test srfo=576) 6.5 5.0-8.0 PROTEIN UA (BEAKER) (test wkao=094) Negative Negative GLUCOSE UA (BEAKER) (test bsxk=369) Negative Negative KETONES UA (BEAKER) (test kuwo=488) Negative Negative BILIRUBIN UA (BEAKER) (test qscb=951) Negative Negative BLOOD UA (BEAKER) (test iuhc=218) Negative Negative NITRITE UA (BEAKER) (test woim=660) Negative Negative LEUKOCYTE ESTERASE UA (BEAKER) (test yzan=086) Trace Negative UROBILINOGEN UA (BEAKER) (test eguv=202) 3.0 mg/dL 0.2-1.0 RBC UA (BEAKER) (test nnib=351) 1 /HPF WBC UA (BEAKER) (test tqmd=369) 2 /HPF SQUAMOUS EPITHELIAL (BEAKER) (test srcr=322) < /HPF SOURCE(BEAKER) (test snjm=2832)
[2018-05-19 10:44] LABS: Absolute Lymphocytes (CBC) 2.3 K/uL (0.7-4.9); Absolute Monocytes 0.7 K/uL (0.1-1.3); Absolute Neutrophil 6.7 K/uL (1.8-8.0); Basophils % 0.7 % (0-1.3); Eosinophils % 1.4 % (0-4.4); Hematocrit 43.2 % (39.6-49.0); MCH 32.6 pg (27.0-35.0); MCV 95.9 fL (80-100); MPV 8.7 fL (7.6-11.3); Monocytes % 7.1 % (3.3-12.3); RBC Red Blood Cell Count 4.51 M/uL (4.33-5.43)
[2018-05-19 10:58] LABS: Protime INR 1.14
--- NOTE | 2018-05-19 10:58 | RAD REPORT ---
EXAM DESCRIPTION: CT - Head Brain Wo Cont - 05/19/2018 10:45 am CLINICAL HISTORY: SYNCOPE COMPARISON: Head Brain Wo Cont dated 02/15/2017; Head Brain Wo Cont dated 07/22/2016 TECHNIQUE: All CT scans are performed using dose optimization technique as appropriate and may inclu de automated exposure control or mA/KV adjustment according to patient size. FINDINGS: No intracranial hemorrhage, hydrocephalus or extra-axial fluid collection.Moderate general ized brain atrophy is present with moderate periventricular and deep white matter chronic microvascul ar ischemic changes.No areas of brain edema or evidence of midline shift. The paranasal sinuses and mastoids are clear. The calvarium is intact. IMPRESSION: No acute intracranial abnormality.
[2018-05-19 11:02] LABS: Albumin 3.6 g/dL (3.4-5.0); Bilirubin Direct 0.2 mg/dL (0-0.2); Bilirubin Total 0.8 mg/dL (0.2-1.0); CKMB Creatine Kinase MB 2.2 ng/mL (0.3-3.6); Magnesium 2.4 mg/dL (1.8-2.4); Potassium 4.4 mmol/L (3.5-5.1); Protein, Total 7.2 g/dL (6.4-8.2)
--- NOTE | 2018-05-19 11:09 | RAD REPORT ---
EXAM DESCRIPTION: RAD - Chest Single View - 05/19/2018 10:53 am CLINICAL HISTORY: syncope Chest pain. COMPARISON: Chest Single View dated 04/13/2018; Chest Single View dated 07/02/2017; Chest Pa And Lat (2 Views) dated 03/28/2017; Chest Single View dated 03/26/2017 FINDINGS: Portable technique limits examination quality. Mild interstitial pulmonary edema is suspected. Calcified pleural plaques are present bilaterally. Th e heart is mildly enlarged with a tortuous thoracic aorta. No displaced fractures. IMPRESSION: Mild CHF/ volume overload.
--- NOTE | 2018-05-19 11:50 | EDPHYS ---
Physician Documentation [facility] Name: Jere Jensen Age: 88 yrs Sex: Male : 1930 Arrival Date: 05/19/2018 Time: 10:05 Bed 6 Private MD: ED Physician Dennis Vences HPI: 05/19 11:00 This 88 yrs old Male presents to ER via EMS with complaints of Syncope, pm1 Hypotension. 11:00 The patient has experienced syncope. Onset: The symptoms/episode began/occurred just pm1 prior to arrival. Duration: This was a single episode, that lasted 3 minute(s). Context: the episode(s) was witnessed, by family, , occurred at home, occurred while the patient was Sitting down and putting his shoes on. Just prior to the episode the patient experienced no apparent symptoms. Associated injury: The patient did not suffer any apparent associated injury. Associated signs and symptoms: Pertinent positives: hypotensive. Current symptoms: Currently, the patient is not experiencing any symptoms, the patient feels back to baseline. The patient has not experienced similar symptoms in the past. The patient has not recently seen a physician, the patient's primary care provider is Dr. Velez. Radha Lizarraga for cardiology. Patient ate breakfast and went to his room to get dressed. After coming out of the room he sat down and his was assisting him with putting his shoes on. Patient reported not feeling well and then had a syncopal episode. The was stimulating him by moving his arms around until he was aroused after 1-3 minutes per . Prior to the episode the patient had a low blood pressure, 70's systolic per and she gave him an extra tablet of midodrine around 0915. Hx of hypotension, typically takes midodrine 5 mg PO at 1.5 tablet in AM, 1 tablet at noon, and 1 tablet in the evening. is currently titrating the midodrine based on blood pressure readings. No chest pain or shortness of breath. Historical: - Allergies: 10:15 Ciprofloxacin (rash); "like blisters on his feet" per son; sv 10:15 Codeine; sv 10:15 Milk/dairy products; sv 10:15 anesthesia meds; sv - PMHx: 10:15 Cancer; Hyperlipidemia; Hypertension; hypotension; TIA; sv - PSHx: 10:15 right knee; Appendectomy; Hernia repair; Tonsillectomy; prostate sx; right hip sx; sv - Immunization history:: Adult Immunizations up to date. - Social history:: Smoking status: Patient/guardian denies using tobacco. - Ebola Screening: : No symptoms or risks identified at this time. ROS: 11:00 Constitutional: Negative for fever, chills, and weight loss, Eyes: Negative for injury, pm1 pain, redness, and discharge, ENT: Negative for injury, pain, and discharge, Neck: Negative for injury, pain, and swelling, Respiratory: Negative for shortness of breath, cough, wheezing, and pleuritic chest pain, Abdomen/GI: Negative for abdominal pain, nausea, vomiting, diarrhea, and constipation. 11:00 Back: Negative for injury and pain, : Negative for injury, bleeding, discharge, and swelling, MS/Extremity: Negative for injury and deformity, Skin: Negative for injury, rash, and discoloration. 11:00 Cardiovascular: Positive for hypotension, Negative for chest pain, edema, palpitations. 11:00 Neuro: Positive for syncope, Negative for headache, numbness, tingling, weakness. Exam: 11:00 Abdomen/GI: Inspection: abdomen appears normal, Bowel sounds: normal, Palpation: pm1 abdomen is soft and non-tender. 11:00 Constitutional: This is a well developed, well nourished patient who is awake, alert, and in no acute distress. Head/Face: Normocephalic, atraumatic. Eyes: Pupils equal round and reactive to light, extra-ocular motions intact. Lids and lashes normal. Conjunctiva and sclera are non-icteric and not injected. Cornea within normal limits. Periorbital areas with no swelling, redness, or edema. ENT: Nares patent. No nasal discharge, no septal abnormalities noted. Tympanic membranes are normal and external auditory canals are clear. Oropharynx with no redness, swelling, or masses, exudates, or evidence of obstruction, uvula midline. Mucous membranes moist. Neck: Trachea midline, no thyromegaly or masses palpated, and no cervical lymphadenopathy. Supple, full range of motion without nuchal rigidity, or vertebral point tenderness. No Meningismus. Chest/axilla: Normal chest wall appearance and motion. Nontender with no deformity. No lesions are appreciated. Cardiovascular: Regular rate and rhythm with a normal S1 and S2. No gallops, murmurs, or rubs. Normal PMI, no JVD. No pulse deficits. Respiratory: Lungs have equal breath sounds bilaterally, clear to auscultation and percussion. No rales, rhonchi or wheezes noted. No increased work of breathing, no retractions or nasal flaring. Abdomen/GI: Soft, non-tender, with normal bowel sounds. No distension or tympany. No guarding or rebound. No evidence of tenderness throughout. Back: No spinal tenderness. No costovertebral tenderness. Full range of motion. Skin: Warm, dry with normal turgor. Normal color with no rashes, no lesions, and no evidence of cellulitis. MS/ Extremity: Pulses equal, no cyanosis. Neurovascular intact. Full, normal range of motion. 11:00 Neuro: Orientation: is normal, Mentation: is normal, Memory: is normal, Cranial nerves: CN II- XII are normal as tested, Cerebellar function: normal finger to nose testing, Motor: moves all fours, strength is normal, Sensation: is normal, no obvious gross deficits. Vital Signs: 10:12 BP 170 / 80; Pulse 62; Resp 15; Temp 98.1; Pulse Ox 97% on R/A; Pain 0/10; hb 10:30 BP 167 / 77 LA Supine (auto/reg); Pulse 58 MON; em1 10:34 BP 154 / 77 LA Sitting (auto/reg); Pulse 56 MON; em1 10:38 BP 122 / 72 LA Standing (auto/reg); Pulse 56 MON; em1 11:35 BP 150 / 75; Pulse 50; Resp 16; Pulse Ox 97% on 2 lpm NC; sv 12:30 BP 183 / 80; Pulse 54; Resp 14; Pulse Ox 100% on R/A; hb 13:50 BP 162 / 80; Pulse 57; Resp 15; Pulse Ox 99% on 2 lpm NC; sv 14:13 BP 139 / 70; Pulse 58; Resp 17; Pulse Ox 100% on 2 lpm NC; sv MDM: 10:07 Patient medically screened. pm1 11:47 Data reviewed: vital signs. Data interpreted: Pulse oximetry: on 2L(s) per nasal pm1 canramírez, is 97 %. Interpretation: normal. Counseling: I had a detailed discussion with the patient and/or guardian regarding: the historical points, exam findings, and any diagnostic results supporting the discharge/admit diagnosis. 11:47 Physician consultation: A Agustin VARELA was called at 11:48, Will call back for report. pm1 13:18 Physician consultation: A Agustin VARELA was contacted at 13:18, regarding admission, pm1 patient's condition, and will see patient Place patient in observation. 05/19 10:11 Order name: Glucose, Ancillary Testing; Complete Time: 10:17 EDMS 05/19 10:18 Order name: Basic Metabolic Panel; Complete Time: 11:04 pm05/19 10:18 Order name: CBC with Diff; Complete Time: 11:03 pm05/19 10:18 Order name: Ckmb; Complete Time: 11:04 pm05/19 10:18 Order name: CPK; Complete Time: 11:04 pm05/19 10:18 Order name: LFT's; Complete Time: 11:04 pm05/19 10:18 Order name: CT Head Brain wo Cont; Complete Time: 11:03 pm05/19 10:18 Order name: Magnesium; Complete Time: 11:04 pm05/19 10:18 Order name: NT PRO-BNP; Complete Time: 11:04 pm05/19 10:18 Order name: PT-INR; Complete Time: 11:24 pm05/19 10:18 Order name: Ptt, Activated; Complete Time: 11:24 pm05/19 10:18 Order name: Troponin (emerg Dept Use Only); Complete Time: 11:04 pm05/19 10:18 Order name: XRAY Chest (1 view); Complete Time: 11:24 pm05/19 10:18 Order name: EKG; Complete Time: 10:20 pm05/19 10:18 Order name: Cardiac monitoring; Complete Time: 10: pm05/19 10:18 Order name: EKG - Nurse/Tech; Complete Time: 10:26 pm05/19 10:18 Order name: IV Saline Lock; Complete Time: 10:22 pm05/19 10:18 Order name: Labs collected and sent; Complete Time: 10:55 pm05/19 10:18 Order name: O2 Per Protocol; Complete Time: 10:22 pm1 05/19 10:18 Order name: O2 Sat Monitoring; Complete Time: 10:22 pm1 05/19 10:18 Order name: Orthostatics; Complete Time: 10:55 pm1 05/19 12:40 Order name: Diet Heart Healthy; Complete Time: 12:40 ag Administered Medications: 14:07 CANCELLED (Duplicate Order): Aspirin 325 mg PO once sv 14:20 Drug: Aspirin 325 mg Route: PO; sv 14:24 Follow up: Response: No adverse reaction sv Point of Care Testing: Blood Glucose: 10:12 Blood Glucose: 101 mg/dL; hb Ranges: Critical Glucose Levels:Adult <50 mg/dl or >400 mg/dl <40 mg/dl or >180 mg/dl Disposition: 17:20 Co-signature as Attending Physician, Dennis Vences MD I agree with the assessment and kdr plan of care. Disposition: 05/19/18 11:49 Hospitalization ordered by Bolivar Velez for Observation. Preliminary diagnosis are Hypotension, Syncope and collapse. - Bed requested for Telemetry/MedSurg (observation). - Status is Observation. sv - Condition is Stable. - Problem is new. - Symptoms have improved. UTI on Admission? No Signatures: Dispatcher [employer] EDYohana Rodrigez RN RN sv Rittger, Kevin, MD MD kdr Gallardo, Ana ag Marinas, Patrick, NP [employer] pm1 Corrections: (The following items were deleted from the chart) 13:47 11:49 Hospitalization Ordered by A Agustin VARELA for Observation. Preliminary diagnosis is ag Hypotension; Syncope and collapse. Bed requested for Telemetry/MedSurg (observation). Status is Observation. Condition is Stable. Problem is new. Symptoms have improved. UTI on Admission? No. pm1 14:07 14:07 Aspirin 325 mg PO once ordered. sv sv 14:24 13:47 05/19/2018 11:49 Hospitalization Ordered by A Agustin VARELA for Observation. sv Preliminary diagnosis is Hypotension; Syncope and collapse. Bed requested for Telemetry/MedSurg (observation). Status is Observation. Condition is Stable. Problem is new. Symptoms have improved. UTI on Admission? No. ag
--- NOTE | 2018-05-19 11:50 | ER ---
Nurse's Notes [facility] Name: Jere Jensen Age: 88 yrs Sex: Male : 1930 Arrival Date: 05/19/2018 Time: 10:05 Bed 6 Private MD: Diagnosis: Hypotension;Syncope and collapse Presentation: 05/19 10:00 Presenting complaint: EMS states: syncope for about 3 minutes while eating breakfast at sv the table, pt remained sitting on the table. Spouse took BP and it was in the 70s, spouse gave an extra dose of Midodrine at 0915. On EMS arrival BP 78/58 manual, HR 57, BS-110. NS 250 ml bolus given, 20G L FA. Transition of care: patient was not received from another setting of care. Onset of symptoms was May 19, 2018. Risk Assessment: Do you want to hurt yourself or someone else? Patient reports no desire to harm self or others. Initial Sepsis Screen: Does the patient meet any 2 criteria? No. Patient's initial sepsis screen is negative. Does the patient have a suspected source of infection? No. Patient's initial sepsis screen is negative. Care prior to arrival: IV initiated. 20 GA, in the left forearm, Glucose check: 110. 10:00 Method Of Arrival: EMS: [facility] sv 10:06 Acuity: IZA 2 sv Triage Assessment: 10:00 General: Appears in no apparent distress. comfortable, well developed, Behavior is sv calm, cooperative, appropriate for age. Pain: Denies pain. EENT: No signs and/or symptoms were reported regarding the EENT system. Neuro: Level of Consciousness is awake, alert, obeys commands, Oriented to person, place, time, situation, Moves all extremities. Full function Speech is normal, Denies dizziness, numbness. Cardiovascular: Patient's skin is warm and dry. Respiratory: Respiratory effort is even, unlabored, Respiratory pattern is regular, symmetrical. Derm: Skin is pink, warm \\T\\ dry. Musculoskeletal: Range of motion: intact in all extremities. Historical: - Allergies: 10:15 Ciprofloxacin (rash); "like blisters on his feet" per son; sv 10:15 Codeine; sv 10:15 Milk/dairy products; sv 10:15 anesthesia meds; sv - PMHx: 10:15 Cancer; Hyperlipidemia; Hypertension; hypotension; TIA; sv - PSHx: 10:15 right knee; Appendectomy; Hernia repair; Tonsillectomy; prostate sx; right hip sx; sv - Immunization history:: Adult Immunizations up to date. - Social history:: Smoking status: Patient/guardian denies using tobacco. - Ebola Screening: : No symptoms or risks identified at this time. Screenin:13 Abuse screen: Denies threats or abuse. Denies injuries from another. Nutritional hb screening: No deficits noted. Tuberculosis screening: No symptoms or risk factors identified. Fall Risk Total Montoya Fall Scale indicates Low Risk Score (25-44 pts). Fall prevention measures have been instituted. Side Rails Up X 2 Frequent Obs/Assesments occuring Family Present and informed to notify staff if they need to leave bedside As available Patient and Family Educated on Fall Prevention Program and strategies. Assessment: 10:30 Reassessment: See triage assessment. sv 10:30 Cardiovascular: Rhythm is sinus rhythm. sv 11:36 Reassessment: Patient appears in no apparent distress at this time. No changes from sv previously documented assessment. Patient and/or family updated on plan of care and expected duration. Pain level reassessed. Patient is alert, oriented x 3, equal unlabored respirations, skin warm/dry/pink. 12:30 Reassessment: Patient appears in no apparent distress at this time. No changes from hb previously documented assessment. Patient and/or family updated on plan of care and expected duration. Pain level reassessed. Patient is alert, oriented x 3, equal unlabored respirations, skin warm/dry/pink. 13:57 Reassessment: Attempted to give report, nurse unavailable. sv 13:58 Reassessment: Patient appears in no apparent distress at this time. No changes from sv previously documented assessment. Patient and/or family updated on plan of care and expected duration. Pain level reassessed. Patient is alert, oriented x 3, equal unlabored respirations, skin warm/dry/pink. Vital Signs: 10:12 BP 170 / 80; Pulse 62; Resp 15; Temp 98.1; Pulse Ox 97% on R/A; Pain 0/10; hb 10:30 BP 167 / 77 LA Supine (auto/reg); Pulse 58 MON; em1 10:34 BP 154 / 77 LA Sitting (auto/reg); Pulse 56 MON; em1 10:38 BP 122 / 72 LA Standing (auto/reg); Pulse 56 MON; em1 11:35 BP 150 / 75; Pulse 50; Resp 16; Pulse Ox 97% on 2 lpm NC; sv 12:30 BP 183 / 80; Pulse 54; Resp 14; Pulse Ox 100% on R/A; hb 13:50 BP 162 / 80; Pulse 57; Resp 15; Pulse Ox 99% on 2 lpm NC; sv 14:13 BP 139 / 70; Pulse 58; Resp 17; Pulse Ox 100% on 2 lpm NC; sv ED Course: 10:00 Maintain EMS IV. Dressing intact. Good blood return noted. Site clean \\T\\ dry. Gauge \\T\\ sv site: 20G L FA. 10:05 Patient arrived in ED. sv 10:06 Yohana Mratines RN is Primary Nurse. sv 10:06 Triage completed. sv 10:07 Heladio Spencer NP is PHCP. pm1 10:07 Dennis Vences MD is Attending Physician. pm1 10:10 Patient has correct armband on for positive identification. Placed in gown. Bed in low sv position. Call light in reach. Side rails up X2. service desk analyst on. Pulse ox on. NIBP on. Door closed. Warm blanket given. Head of bed elevated. 10:13 Arm band placed on right wrist. hb 10:28 EKG done, by p 3 armament/ordnance ima technician. reviewed by Heladio Spencer NP. at1 10:35 X-ray completed. jr1 10:44 CT completed. Patient tolerated procedure well. Patient moved to CT via stretcher. sj Patient moved back from CT. 10:45 CT Head Brain wo Cont In Process Unspecified. EDMS 10:54 XRAY Chest (1 view) In Process Unspecified. EDMS 11:49 Bolivar Velez MD is Hospitalizing Provider. pm1 14:14 No provider procedures requiring assistance completed. Patient admitted, IV remains in sv place. intact. Administered Medications: 14:07 CANCELLED (Duplicate Order): Aspirin 325 mg PO once sv 14:20 Drug: Aspirin 325 mg Route: PO; sv 14:24 Follow up: Response: No adverse reaction sv Point of Care Testing: Blood Glucose: 10:12 Blood Glucose: 101 mg/dL; hb Ranges: Outcome: 11:49 Decision to Hospitalize by Provider. pm1 14:14 Admitted to Tele accompanied by jonn, family with patient, via stretcher, room 429, sv with oxygen, with chart, Report called to Reyna CARBONE 14:14 Condition: stable 14:14 Instructed on the need for admit. 14:24 Patient left the ED. sv Signatures: Dispatcher [employer] Yohana Witt, RN RN Dolly Wheeler Jennifer jr1 Doni Leonard em1 Marcelina bagley, wool cleaner EKG Tat1 Heladio Spencer, DRUMS TEACHER DRUMS TEACHER pm1 Seema Sanchez, RAF RN hb
[2018-05-19] MEDS ORDERED: ASPIRIN EC 325 MG TABLET PO ONE (14:12)
[2018-05-19] MEDS ORDERED: ACETAMINOPHEN 500 MG TAB PO PRN (14:28)
--- NOTE | 2018-05-19 15:08 | EKG ---
Test Date: 2018-05-19 Test Time: 10:20:56 Battery Plate Assembler: HODA MEASUREMENT RESULTS: Intervals: Rate: 58 KS: 186 QRSD: 88 QT: 444 QTc: 435 [place]: P: 79 KS: 186 QRS: -15 T: 53 INTERPRETIVE STATEMENTS: Sinus bradycardia Cannot rule out Inferior infarct, age undetermined Abnormal ECG Compared to ECG 04/13/2018 06:51:16 Myocardial infarct finding now present Sinus rhythm no longer present Atrial premature complex(es) no longer present ST (T wave) deviation no longer present Electronically Signed On 05-19-18 15:06:36 CDT by Devon Jason
[2018-05-19 16:16] VITALS: BMI 28.7
[2018-05-19 22:22] VITALS: O2SAT 93
[2018-05-19] MEDS ORDERED: AMLODIPINE 5 MG TAB PO ONE (23:19)
[2018-05-20 05:59] LABS: Absolute Lymphocytes (CBC) 2.7 K/uL (0.7-4.9); Absolute Monocytes 0.8 K/uL (0.1-1.3); Absolute Neutrophil 5.3 K/uL (1.8-8.0); Basophils % 0.5 % (0-1.3); Eosinophils % 3.1 % (0-4.4); Hematocrit 40.8 % (39.6-49.0); Lymphocytes % 29.2 % (15.3-44.8); MCH 33.5 pg (27.0-35.0); MCV 94.2 fL (80-100); MPV 8.4 fL (7.6-11.3); Monocytes % 8.8 % (3.3-12.3); RBC Red Blood Cell Count 4.34 M/uL (4.33-5.43)
[2018-05-20] MEDS: MIDODRINE HCL 5 MG TABLET PO SCH ×2 (06:30→10:36)
--- NOTE | 2018-05-20 07:59 | HP ---
Date of Admission: 05/19/2018 Chief Complaint: Low blood pressure and passing out. History Of Present Illness: An 88-year-old male patient, who has history of orthostatic hypotension, takes his medication regularly as monitors his medication and she gave him his ProAmatine (mido drine) this morning around 6:30 a.m., and he stayed in bed until 7:30 a.m. After that, he got up and he was sitting in the chair in the kitchen and all of a sudden, found that the patient was comp laining of not feeling good at all and she immediately checked his blood pressure as she was concerne d about low blood pressure and his blood pressure was 77/46. Soon after that, the patient actually p assed out, became unresponsive. tried to wake him up by calling him, shaking him including gent le slap on his face and he did not respond at all and she called 911, and by the time EMS arrived, th e patient had started to wake up. His blood pressure was even lower by EMS and he was brought into [facility] emergency room. After he was evaluated in the ER, I was contacted by ER provider requesting admmaryann dsouza to the hospital. When I saw him this evening, he was back to his normal usual self. Medications: List reviewed. Review of Systems: Cardiovascular: As mentioned above. All other systems reviewed and negative. Allergies: TO CIPRO, CODEINE, MILK OR MILK CONTAINING PRODUCTS. Family History: Not pertinent. Social History: Negative for smoking or alcohol use. Past Surgical History: Prostatectomy, right hip surgery, appendectomy, arthroscopic knee surgery, he rnia repair, bladder surgery for bladder cancer. Past Medical History: Significant for hypertension, bladder cancer, prostate cancer, hyperlipidemia, osteoarthritis at multiple sites, gastroesophageal reflux disease, restless legs syndrome, impaired fasting glucose, depression, lumbar spinal stenosis, cervical spinal stenosis, and orthostatic hypote nsion. Physical Examination: Vital Signs: Last temperature 96.9, pulse 59, respiratory rate 18, blood pressure 168/78, oxygen sat uration 93%. General: Awake, alert, oriented, not in distress. HEENT: Head atraumatic, normocephalic. Conjunctivae nonerythematous. Sclerae white. Mouth, no thr ush or edema noted. Ears/Nose, no mass, lesion, discharge noted. Neck: Supple. No JVD, lymph nodes, bruit, thyromegaly noted. Lungs: Bilateral good equal air entry. Clear to auscultation. No rhonchi. No rales. Heart: Normal heart sounds, no murmur or gallop. Abdomen: Soft, bowel sounds normal. No guarding, rigidity, tenderness, mass, hepatosplenomegaly, di stention, or bruit noted. Extremities: No leg edema. No calf tenderness. Skin: No rash, ulcer, cellulitis. Lymphatics: No lymph node enlargement in neck, supraclavicular, infraclavicular region. Neuro: No focal neurological deficit. Chest: Unremarkable. External Genitalia: Deferred. Rectal: Deferred. Laboratory Data: White count 9.8, hemoglobin 14.7, platelets 155. INR 1.14. Sodium 144, potassium 4.4, chloride 107, bicarb 30, BUN 20, creatinine 1.40, glucose 101. Liver function tests unremarkabl e. Troponin 0.03 on the first set, second set 0.04, last set 0.05. CAT scan of the head was negativ e for any acute intracranial changes. Chest x-ray, no acute changes noted except radiologist has rep orted as mild CHF/volume overload pattern, but clinically the patient has no such problem at all. El ectrocardiogram, sinus bradycardia. Impression: 1.Syncope. 2.Orthostatic hypotension. 3.Hypertension. 4.Hyperlipidemia. 5.Prostate cancer. 6.Bladder cancer. 7.Gastroesophageal reflux disease. 8.Osteoarthritis on multiple sites. 9.Restless legs syndrome. 10.Depression. 11.Impaired fasting glucose. 12.Cervical spondylosis. 13.Lumbar spondylosis. Plan: Admit the patient to hospital for observation. We will continue his home medications per orde r. We will have to increase the dose of midodrine to 10 mg 3 times a day. The patient is on Namenda and I have advised the patient's that we should consider to discontinue it, obviously it is pre scribed by Dr. Menchaca. The patient and the patient's family to follow up with him upon [facility] to see what he would like to do on Namenda. Namenda can cause orthostatic hypotension as wel l. I have informed the patient and the patient's and there was some other family member present in the room that this kind of problem of orthostatic hypotension leading to sometimes syncopal episo de can and will happen in patients like him from time to time at home. The best thing that family ca n do to assist him at that time to get him over this spell in a faster way is to get him to lie down in the supine position. If that is not possible, then at least try to raise his leg up, but the best thing is to get him to lie down flat in the supine position. Once he gets in the supine position, h e is expected to recover quickly and I expect that, the patient to start showing improvement within 3 0-60 seconds and in less than 5 minutes, he should be back to his normal usual self. If he is not ba ck to his normal usual self within that time, then the patient should definitely call ambulance by ca lling 911. This is only in the event that there are no other associated symptoms, but if he has any other associated symptoms like fever, nausea, vomiting, diarrhea, or if he is appearing cyanotic or h aving any shortness of breath or chest pain type of complaint, any other symptoms or different presen tation, family should not wait and call 911 right away. These instructions were given to family max y during our process of discussion about what to do in the event if this happens again at home and wh at is appropriate and when it is appropriate for them to call 911 to bring him to the emergency room. All of the questions were answered. I will see him in the morning. Possible discharge tomorrow. DANIEL/ROSA Voice ID: [id number]
[2018-05-20] MEDS ORDERED: LEVODOPA PO SCH (09:00)
[2018-05-20] MEDS ORDERED: CARBIDOPA PO SCH (09:00)
[2018-05-20] MEDS ORDERED: ASPIRIN EC 81 MG TAB PO SCH (09:00)
--- NOTE | 2018-05-20 11:17 | CON ---
Date of Consultation: 05/19/2018 The patient was admitted and seen on 05/19/2018. Reason For Consultation: Syncope. History Of Present Illness: Mr. Jensen is an 88-year-old male, has had a history of orthostatic hypo tension, has a history of parkinsonism, and has had a history of prostate cancer before, has a histor y of TIA, dyslipidemia, as well as hypotension. He takes midodrine at home, it is 7.5 mg 3 times a d ay. He is on extensive list of medication for his parkinsonism and dementia, includes Namenda and Si nemet and another medication that is a combination medication for his parkinsonism and dementia. Had an episode of syncope with a blood pressure of 70 systolic, came to the emergency room an d after 1 dose of midodrine, pressure went up to 211 systolic. No chest pain reported. No nausea or vomiting or diaphoresis. There is no PND, orthopnea, palpitation, or pedal edema. His EKG shows sinus bradycardia. Chest x-ray showed mild CHF. CT of his head was negative. Rest of the diagnostic data was noted unremarkable. His creatinine is 1.4. Past Medical History: As stated above. Allergies: NONE. Review of Systems: Negative. Social History: Negative. Family History: Noncontributory. Medications: At home includes Sinemet, Zocor, Namenda, Cymbalta, midodrine, and Prilosec and a medic ine called Nuplazid. Physical Examination: General: Mr. Jensen was in no acute distress. He was in sinus rhythm. Vital Signs: Last blood pressure was 160 systolic. HEENT: Negative. Neck: Supple without any bruit, lymphadenopathy, JVD, or thyromegaly. Chest: Clear to auscultation and percussion. Cardiac: Revealed a regular rhythm and rate with an S4 gallops. No murmurs or rubs. Abdomen: Benign. Extremities: Revealed no clubbing, cyanosis, or edema. Diagnostic Data: As stated earlier. Impression And Plan: 1.Recurrent orthostatic hypotension, exacerbated by polypharmacy for his parkinsonism and dementia. I believe I was in the office, getting echocardiogram and a carotid Doppler on him, and I will check to see cardiac workup. We can probably go up on the dose. I will discuss the case with Dr. Velez and Dr. Menchaca and see if there are any changes we can make regardin g his anti-parkinsonism and anti-dementia medication. The patient is feeling very comfortable ____ comfortable with him going home . I will follow him along otherwise. RADHA Voice ID: [id number] Report ID: [id number]
[2018-05-20] MEDS ORDERED: MIDODRINE 5 MG PO SCH (14:00)
[2018-05-20 17:01] VITALS: BP 180/96; TEMP 98
--- NOTE | 2018-05-21 10:30 | EKG ---
Test Date: 2018-05-20 Test Time: 09:28:14 Heeler: HODA MEASUREMENT RESULTS: Intervals: Rate: 59 DE: 182 QRSD: 90 QT: 456 QTc: 451 [place]: P: 46 DE: 182 QRS: 2 T: 73 INTERPRETIVE STATEMENTS: Sinus bradycardia with sinus arrhythmia Otherwise normal ECG Compared to ECG 05/19/2018 10:20:56 Myocardial infarct finding no longer present Electronically Signed On 05-21-18 10:27:34 CDT by Devon Jason
--- NOTE | 2018-05-21 18:30 | DS ---
Date of Discharge: 05/20/2018 Disposition: Discharged to go home. Physical Examination: HEENT: Unremarkable. Lungs: Clear to auscultation. Heart: Sounds normal. Abdomen: Soft, bowel sounds normal. No guarding, rigidity, tenderness, or distention. Extremities: No leg edema. Hospital Course: An 88-year-old male patient, who has history of orthostatic hypotension, takes mido drine at home as. The patient came into emergency room with low blood pressure and syncopal episode. After patient was evaluated rather in the emergency room, he was admitted to the hospital for obser vation. He sees Dr. Jason from Cardiology and Dr. Menchaca from Neurology Service. He takes Namen da per Dr. Menchaca and I have advised the patient's and patient that she needs talked to Dr. Darian montemayor to see if he would allow to discontinue Namenda as we are concerned that can attention deficit disorder on to his orthostatic hypotension problem. The patient's will contact Dr. Menchaca to discuss this recommendation. Meanwhile in the hospital we noted that his blood pressure in either s itting supine position from time to time has gone really high like 180-190 range. He actually the ni ght of admission did require amlodipine 5 mg p.o. x1 dose. I did spend some time talking to patient' s about how to manage this blood pressure problem as his blood pressure drops when he stands up, but it may go up when he is lying down. has done extremely good job about administering his me dications in timely manner and she is very reliable in terms of following instructions, so I have giv en her appropriate instruction about checking the patient's blood pressure before giving his dose of midodrine and he gets midodrine dose 3 times a day, so she will check blood pressure before giving mi dodrine and according to written instruction she will decide whether he takes midodrine or not. His blood work when he came in; white count 9.8, hemoglobin 14.7, platelets 155, sodium 144, potassium 4. 4, BUN 20, creatinine 1.40. CAT scan of the head was negative for any acute changes. Chest x-ray wa s reported by radiologist as CHF/volume overload pattern, but clinically patient does not have any steward ch congestive heart failure type of problem. Final Diagnosis: 1.Syncope. 2.Orthostatic hypotension. 3.Hypertension. 4.Hyperlipidemia. 5.Prostate cancer. 6.Bladder cancer. 7.Gastroesophageal reflux disease. 8.Osteoarthritis on multiple sites. 9.Restless legs syndrome. 10.Depression. 11.Impaired fasting glucose. 12.Cervical spondylosis. 13.Lumbar spondylosis. Discharge Medications And Instructions: 1.Continue all prior home medication except change midodrine 5 mg tablet, dose instructions as below . Check blood pressure 3 times a day before it started to give midodrine, if systolic blood pressure is 150 or higher, do not give midodrine. 2.If systolic blood pressure is between 120-150, then midodrine 5 mg 1 tablet at that time. 3.If systolic blood pressure is less than 120, then give midodrine 5 mg one and half tablet, so tota l dose will be 7.5 mg at that time. 4.The patient and family to talk to Dr. Menchaca and ask him if he can stop taking Namenda. 5.Follow up at my office on 05/25/2018 at 2 p.m. as per scheduled appointment and bring blood pressu re readings to the office. DANIEL/MODL Voice ID: [id number] Report ID: [id number]
--- NOTE | 2018-05-23 08:11 | ECHO ---
HEIGHT: 5 ft 10 in WEIGHT: 200 lb 0 oz DATE OF STUDY: 05/20/[address]: 2-DIMENSIONAL: YES M.MODE: YES DOPPLER: YES COLOR FLOW: YES TDS: NO PORTABLE: NO DEFINITY: NO BUBBLE STUDY: NO DIAGNOSIS: 4 BEAT RUN OF VENTRICULAR TACHYCARDIA 125-150 BEATS PER MINUTE CARDIAC HISTORY: CATHERIZATION: NO SURGERY: NO PROSTHETIC VALVE: NO PACEMAKER: NO MEASUREMENTS (cm) DIASTOLIC (NORMALS) SYSTOLIC (NORMALS) IVSd 1.1 (0.6-1.2) LA Diam 4.9 (1.9-4.0) LVEF 70% LVIDd 3.9 (3.5-5.7) LVIDs 2.4 (2.0-3.5) %FS 39% LVPWd 1.2 (0.6-1.2) Ao Diam 3.2 (2.0-3.7) 2 DIMENSIONAL ASSESSMENT: RIGHT ATRIUM: NORMAL LEFT ATRIUM: NORMAL RIGHT VENTRICLE: NORMAL LEFT VENTRICLE: NORMAL TRICUSPID VALVE: NORMAL MITRAL VALVE: NORMAL PULMONIC VALVE: NORMAL AORTIC VALVE: NORMAL PERICARDIAL EFFUSION: NONE AORTIC ROOT: NORMAL LEFT VENTRICULAR WALL MOTION: NORMAL DOPPLER/COLOR FLOW: NORMAL COMMENTS: NORMAL 2 DIMENSIONAL ECHOCARDIOGRAM WITH DOPPLER. NO WALL MOTION ABNORMALITY. NO EFFUSION. TECHNOLOGIST: KEVIN CONNELL
== END 2018-05-20 16:51 | disposition home or self-care (01) ==
LOC: ER 10:03 → ERHOLD 11:49 → 4TH 14:13
PROVIDERS: ADMIT Internal Medicine; ATTEND Internal Medicine
DX: I95.1 Orthostatic hypotension (principal); R55 Syncope and collapse; I10 Essential (primary) hypertension; E78.5 Hyperlipidemia, unspecified; K21.9 Gastro-esophageal reflux disease without esophagitis; M19.90 Unspecified osteoarthritis, unspecified site; G25.81 Restless legs syndrome; F32.9 Major depressive disorder, single episode, unspecified; M47.892 Other spondylosis, cervical region; M47.896 Other spondylosis, lumbar region; Z85.51 Personal history of malignant neoplasm of bladder; Z85.46 Personal history of malignant neoplasm of prostate; Z86.73 Personal history of transient ischemic attack (TIA), and cerebral infarction without residual deficits; G20 Parkinson's disease
CPT/HCPCS: 36415; 70450; 71045; 80048; 80076; 82550; 82553; 82962; 83735; 83880; 84484; 85025; 85610; 85730; 93005; 93306; 99285; G0378

== ENCOUNTER 2018-10-02 16:35 | Inpatient (IN) | payer OTHER ==
--- OUTSIDE RECORDS SUMMARY | 2018-10-02 16:37 | XMS REPORT | Clinical Summary ---
:1930 Author Organization [facility] Address [address] [place] [id number] Care Team Providers Name Role Phone Shaka Velez MD Primary Care Provider Allergies Active Allergy Reactions Severity Noted Date Comments Ciprofloxacin Rash Low 10/06/2016 Codeine Rash Low 10/06/2016 Medications Medication Sig Dispensed Refills Start End Date Status Date simvastatin (ZOCOR) Take 20 mg by 0 Active 20 MG tablet mouth nightly. dextromethorphan-av Take 1 capsule by 0 Active nidine (NUEDEXTA) mouth once in 20-10 mg Cap morning. memantine (NAMENDA Take 1 capsule by 0 Active XR) 28 mg CSpX mouth daily. aspirin 325 MG EC Take 325 mg by 0 Active tablet mouth daily. omega-3 fatty Take 1 capsule by 0 Active acids-vitamin E mouth nightly . 1,000 mg Cap cinnamon bark 500 mg Take 500 mg by 0 Active capsule mouth daily. cholecalciferol Take 1,000 Units 0 Active (VITAMIN D3) 1,000 by mouth daily. unit tablet VIT Take 1 capsule by 0 Active C/E/ZN/COPPR/LUTEIN/ mouth nightly. ZEAXAN (PRESERVISION AREDS 2 ORAL) solifenacin Take 10 mg by 0 Active (VESICARE) 10 MG mouth daily . tablet midodrine Take 5 mg by 0 Active (PROAMATINE) 5 MG mouth every tablet evening. famotidine (PEPCID) Take 40 mg by 0 Active 40 MG tablet mouth daily. midodrine Take 2.5 mg by 0 Active (PROAMATINE) 2.5 MG mouth 2 (two) tablet times daily. sertraline (ZOLOFT) Take 50 mg by 0 12/23/19 Discontinued 50 MG tablet mouth nightly . 18 famotidine (PEPCID) Take 20 mg by 0 12/23/19 Discontinued 20 MG tablet mouth nightly. 18 midodrine Take 7.5 mg by 0 12/23/19 Discontinued (PROAMATINE) 5 MG mouth 2 [...] Date Type Specialty Care Team Description 12/24/2017 Anesthesia Event Gabriel Alexander MD 12/24/2017 Surgery Osmel Enriquez CYSTOSCOPY,JEEVAN Gurrola MD LIGHT CYSVIEW 12/24/2017 Hospital Encounter Osmel Enriquez MD 12/23/2017 Hospital Encounter Pre-Admission Resource, Oqmt Testing Preadmit Phone after 10/01/2017 Social History Tobacco Use Types Packs/Day Years Used Date Former Smoker Quit: 11/08/1959 Smokeless Tobacco: Never Used Alcohol Use Drinks/Week oz/Week Comments No Sex Assigned at Date Recorded Not on file Job Start Date Occupation Industry Not on file Not on file Not on file Travel History Travel Start Travel End No recent travel history available. Last Filed Vital Signs Vital Sign Reading Time Taken Blood Pressure 146/82 12/24/2017 1:30 PM [employer] Pulse 58 12/24/2017 1:30 PM [employer] Temperature 36.3 C (97.3 F) 12/24/2017 12:37 PM [employer] Respiratory Rate 18 12/24/2017 1:30 PM [employer] Oxygen Saturation 95% 12/24/2017 1:30 PM [employer] Inhaled Oxygen Concentration - - Weight 89.8 kg (198 lb) 12/24/2017 9:48 AM [employer] Height 177.8 cm (5' 10") 12/24/2017 9:48 AM [employer] Body Mass Index 28.41 12/24/2017 9:48 AM [employer] Plan of Treatment Not on file Procedures Procedure Name Priority Date/Time Associated Diagnosis Comments TISSUE EXAM AP Routine 12/24/2017 11:50 AM Results for this [employer] procedure are in the results section. CYSTOSCOPY,TURBT 12/24/2017 11:05 AM Malignant neoplasm [employer] of urinary bladder, unspecified site (HCC) Case Notes PER [facility] TO USE RM 1 Special Needs (CONSIDER SPINAL ANESTHESIA) CYSTOSCOPY,BLADDER BIOPSY 12/24/2017 11:05 AM [employer] Malignant neoplasm of urinary bladder, unspecified site (HCC) Case Notes PER [facility] TO USE RM 1 Special Needs (CONSIDER SPINAL ANESTHESIA) CYSTOSCOPY,BLUE LIGHT CYSVIEW 12/24/2017 11:05 AM [employer] Malignant neoplasm of urinary bladder, unspecified site (HCC) Case Notes PER [facility] TO USE RM 1 Special Needs (CONSIDER SPINAL ANESTHESIA) after 10/01/2017 Results Tissue Exam (12/24/2017 11:50 AM [employer]) Case Report Surgical Pathology Report Case: [id number] [facility] Authorizing Provider:Osmel Enriquez MDCollected: 12/24/[address] [place] [address] CENTER Ordering Location: [facility] PERIOPER[facility] Received: 12/24/2017 1341 SERVICES Pathologist: Bayron [...] URINARY BLADDER, LEFT NECK 2 O'CLOCK, TURBT: [facility] - PAPILLARY UROTHELIAL CARCINOMA, HIGH GRADE (WHO GRADE 3), [facility] - ADJACENT UROTHELIAL CARCINOMA IN SITU - [...] WALL, BIOPSY: - MILD CHRONIC INFLAMMATION - NEGATIVE FOR DYSPLASIA OR MALIGNANCY E. URINARY BLADDER, RIGHT LATERAL WALL, BIOPSY: - CHRONIC INFLAMMATION AND REACTIVE UROTHELIAL CHANGES - NEGATIVE FOR DYSPLASIA OR MALIGNANCY F. URINARY BLADDER, DOME, BIOPSY: - CHRONIC INFLAMMATION AND REACTIVE UROTHELIAL CHANGES - NEGATIVE FOR DYSPLASIA OR MALIGNANCY G. URINARY BLADDER, TRIGONE, BIOPSY: - CHRONIC INFLAMMATION AND REACTIVE UROTHELIAL CHANGES - NEGATIVE FOR DYSPLASIA OR MALIGNANCY Signing Pathologist Direct Phone Line: [phone] CPT Code(s) 92816 X [phone] [facility] CLINICAL HISTORY Malignant neoplasm of [facility] urinary bladder [facility] SPECIMEN SOURCE A. Left bladder neck 2:[address] [facility] biopsy; B. Posterior [facility] midline bladder biopsy; D. Left lateral wall [...] specimen is entirely submitted in cassette A1. [facility] Specimen B: Received in formalin labeled "posterior [...] submitted G1. DB/pl MICROSCOPIC DESCRIPTION A-G: Performed. [facility] Specimen Tissue - Bladder Tumor Performing Organization Address City/State/Zipcode Phone Number [facility] [address] [place] [address] CENTER after 10/01/2017 Insurance Payer Benefit Plan / Subscriber ID Type Phone Address Group [employer] - MEDICARE A[employer] MEDICARE HMO xxxxxxxx [phone] [address] [place] [address] (Home) [place] [address] Advance Directives For more information, please contact:[facility] [place], [place] [phone] Code Status Date Activated Date Inactivated Comments Full Code 10/28/2016 5:33 PM 10/29/2016 6:01 PM This code status was determined by: Patient
--- OUTSIDE RECORDS SUMMARY | 2018-10-02 16:38 | XMS REPORT ---
:1930 Author Organization [facility] Address [address] [place] [address] Dr. Lozano [address] [place] [address] Care Team Providers Name Role Phone JUAN FRANCISCO ENRIQUEZ Unavailable Unavailable Problems This patient has no known problems. Allergies, Adverse Reactions, Alerts This patient has no known allergies or adverse reactions. Medications This patient has no known medications. Results Test Description Test Time Test Comments Text Results Atomic Results Result Comments TISSUE EXAM 2017-12-27 15:21:00 Surgical Pathology Report Case: [id number] Authorizing Provider: Juan Francisco Enriquez MD Collected: 12/24/2017 1150 Order[facility] Location: [facility] PERIOPER[facility] Received: 12/24/2017 1341 SERVICES Pathologist: [...] OR MALIGNANCY Signing Pathologist Direct Phone Line: [phone] signed by Bayron Crystal MD on 12/27/2017 at 3:21 [id number] X [id number], [id number] neoplasm of urinary bladderA. Left bladder neck [...] Value Reference Range Comments CULTURE (BEAKER) (test gzrd=8778) See comment <10,000 col/mL Gram Negative Ro50-59,000 col/mL skin floraCOMPREHENSIVE METABOLIC [id number] 16:04:00 Test Item Value Reference Range Comments TOTAL PROTEIN (BEAKER) 7.4 gm/dL 6.0-8.3 (test ktvj=037) ALBUMIN (BEAKER) (test 3.9 g/dL 3.5-5.0 uogq=6520) ALKALINE PHOSPHATASE 76 U/L 40-150 (BEAKER) (test uoaq=313) BILIRUBIN TOTAL (BEAKER) 0.9 mg/dL 0.2-1.2 (test beib=163) SODIUM (BEAKER) (test 140 meq/L 136-145 kmio=727) POTASSIUM (BEAKER) (test 4.1 meq/L 3.5-5.1 qlba=053) CHLORIDE (BEAKER) (test 104 meq/L 98-107 opiv=533) CO2 (BEAKER) (test 26 meq/L 22-29 rkmz=665) BLOOD UREA NITROGEN 21 mg/dL 7-21 (BEAKER) (test lpaz=539) CREATININE (BEAKER) (test 1.40 mg/dL 0.57-1.25 vufl=865) GLUCOSE RANDOM (BEAKER) 147 mg/dL 70-105 (test uoqf=332) CALCIUM (BEAKER) (test 9.0 mg/dL 8.4-10.2 fnyo=166) AST (SGOT) (BEAKER) (test 20 U/L 5-34 nlub=276) ALT (SGPT) (BEAKER) (test 16 U/L 6-55 rzfy=542) EGFR (BEAKER) (test 48 mL/min/1.73 sq m ESTIMATED GFR IS NOT fkgd=4098) ACCURATE CREATININE CLEARANCE IN PREDICTING GLOMERULAR FILTRATION RATE. ESTIMATED GFR IS NOT APPLICABLE FOR DIALYSIS PATIENTS. CBC W/PLT COUNT & AUTO [id number] 15:55:00 Test Item Value Reference Range Comments WHITE BLOOD CELL COUNT (BEAKER) (test ywoa=665) 8.7 K/ L 4.0-10.0 RED BLOOD CELL COUNT (BEAKER) (test rjhk=848) 4.86 M/ L 4.20-5.80 HEMOGLOBIN (BEAKER) (test pofx=339) 15.2 GM/DL 13.0-16.8 HEMATOCRIT (BEAKER) (test moxf=787) 45.2 % 40.0-50.0 MEAN CORPUSCULAR VOLUME (BEAKER) (test avgp=710) 93.1 fL 82.0-98.0 MEAN CORPUSCULAR HEMOGLOBIN (BEAKER) (test 31.2 pg 27.0-33.0 qsjw=257) MEAN CORPUSCULAR HEMOGLOBIN CONC (BEAKER) (test 33.5 GM/DL 32.0-36.0 bnpr=410) RED CELL DISTRIBUTION WIDTH (BEAKER) (test 12.3 % 10.3-14.2 hnwz=830) PLATELET COUNT (BEAKER) (test whzb=270) 151 K/CU MM 150-430 MEAN PLATELET VOLUME (BEAKER) (test iccg=568) 7.0 fL 6.5-10.5 NUCLEATED RED BLOOD CELLS (BEAKER) (test 0 /100 WBC 0-0 ixge=084) NEUTROPHILS RELATIVE PERCENT (BEAKER) (test 67 % woka=423) LYMPHOCYTES RELATIVE PERCENT (BEAKER) (test 22 % lbzu=558) MONOCYTES RELATIVE PERCENT (BEAKER) (test 10 % xsaf=152) EOSINOPHILS RELATIVE PERCENT (BEAKER) (test 1 % onvt=693) BASOPHILS RELATIVE PERCENT (BEAKER) (test 0 % vubh=342) NEUTROPHILS ABSOLUTE COUNT (BEAKER) (test 5.86 K/ L 1.80-8.00 lhgc=148) LYMPHOCYTES ABSOLUTE COUNT (BEAKER) (test 1.88 K/ L 1.48-4.50 bwpn=066) MONOCYTES ABSOLUTE COUNT (BEAKER) (test 0.84 K/ L 0.00-1.30 txtv=025) EOSINOPHILS ABSOLUTE COUNT (BEAKER) (test 0.12 K/ L 0.00-0.50 lftt=275) BASOPHILS ABSOLUTE COUNT (BEAKER) (test 0.03 K/ L 0.00-0.20 yttd=480) [id number] 15:54:00 Test Item Value Reference Range Comments PARTIAL THROMBOPLASTIN TIME (BEAKER) (test 32.3 seconds 22.5-36.0 ffwn=618) PROTHROMBIN TIME/[id number] 15:53:00 Test Item Value Reference Range Comments PROTIME (BEAKER) (test hfbz=619) 14.7 seconds 11.7-14.7 INR (BEAKER) (test yzli=900) 1.2 <=5.9 RECOMMENDED COUMADIN/WARFARIN INR THERAPY RANGESSTANDARD DOSE: 2.0 - 3.0 Includes: PROPHYLAXIS forvenous thrombosis, systemic embolization; TREATMENT for venous thrombosis and/or pulmonary embolus.HIGH RISK: Target INR is 2.5-3.5 for patients with mechanical heart valves.URINALYSIS W/ [id number] 15 :40:00 Test Item Value Reference Range Comments COLOR (BEAKER) (test kowa=528) Yellow CLARITY (BEAKER) (test xvhu=638) Clear SPECIFIC GRAVITY UA (BEAKER) (test fmrn=451) 1.017 1.001-1.035 PH UA (BEAKER) (test ofar=132) 6.5 5.0-8.0 PROTEIN UA (BEAKER) (test srnc=139) Negative Negative GLUCOSE UA (BEAKER) (test ldot=760) Negative Negative KETONES UA (BEAKER) (test wypl=507) Negative Negative BILIRUBIN UA (BEAKER) (test xqap=690) Negative Negative BLOOD UA (BEAKER) (test dbvi=297) Negative Negative NITRITE UA (BEAKER) (test jubc=798) Negative Negative LEUKOCYTE ESTERASE UA (BEAKER) (test jkgl=907) Trace Negative UROBILINOGEN UA (BEAKER) (test hcpg=523) 3.0 mg/dL 0.2-1.0 RBC UA (BEAKER) (test ommn=139) 1 /HPF WBC UA (BEAKER) (test qbym=911) 2 /HPF SQUAMOUS EPITHELIAL (BEAKER) (test edsh=307) < /HPF SOURCE(BEAKER) (test dhfc=1207)
[2018-10-02] MEDS ORDERED: NA CHLORIDE 0.9% 1,000 ML ONE (18:10)
--- NOTE | 2018-10-02 18:47 | RAD REPORT ---
EXAM DESCRIPTION: RAD - Chest Single View - 10/02/2018 6:34 pm CLINICAL HISTORY: Cough;Abdominal distention Chest pain. COMPARISON: Chest Single View dated 05/19/2018; Chest Single View dated 04/13/2018; Chest Single View d ated 07/02/2017; Chest Pa And Lat (2 Views) dated 03/28/2017; Chest Single View dated 03/26/2017 FINDINGS: Portable technique limits examination quality. Small left pleural effusion is present with linear scarring in the left lung base. The lungs are othe rwise clear. The heart is upper limit normal size with a tortuous thoracic aorta. Calcified pleural p laques are present.
[2018-10-02 19:00] LABS: Absolute Lymphocytes (CBC) 2.5 K/uL (0.7-4.9); Absolute Monocytes 0.7 K/uL (0.1-1.3); Absolute Neutrophil 4.4 K/uL (1.8-8.0); Basophils % 0.7 % (0-1.3); Eosinophils % 1.2 % (0-4.4); Hematocrit 43.8 % (39.6-49.0); Lymphocytes % 32.6 % (15.3-44.8); MCH 31.7 pg (27.0-35.0); MPV 8.2 fL (7.6-11.3); Monocytes % 9.4 % (3.3-12.3); RBC Red Blood Cell Count 4.66 M/uL (4.33-5.43)
[2018-10-02 19:09] LABS: Protime INR 1.18
[2018-10-02 19:21] LABS: Albumin 3.7 g/dL (3.4-5.0); Bilirubin Direct 0.2 mg/dL (0-0.2); Bilirubin Total 0.7 mg/dL (0.2-1.0); Magnesium 2.4 mg/dL (1.8-2.4); Protein, Total 7.2 g/dL (6.4-8.2); Troponin (Emerg Dept Use Only) 0.04 ng/mL (0.0-0.045)
--- NOTE | 2018-10-02 20:16 | ER ---
Nurse's Notes [facility] Name: Jere Jensen Age: 88 yrs Sex: Male : 1930 Arrival Date: 10/02/2018 Time: 16:39 Bed 24 Private MD: Bolivar Velez C Diagnosis: Weakness;Syncope and collapse;Essential (primary) hypertension;Pleural effusion in conditions classified elsewhere;Abdominal tenderness;Cystitis Presentation: 10/02 16:41 Presenting complaint: states: "He got up this morning, he ate breakfast, then he aj1 went in his chair and slept until 12:00. Then I got him up for lunch, he was sitting at the table when all the sudden he passes out. I took his blood pressure and it was 86/46. I got him in his recliner and he slept until 4:00, when I woke him up. I took his blood pressure and it was good. He said he feels so bad and he's hurting in his crotch. He has bladder cancer, he is suppose to start his 3rd round of treatment. And his feet are swollen." Patient reports that the pain is worse when he tried to bear down to have a bowel movement. Denies fever. Transition of care: patient was not received from another setting of care. 16:41 Method Of Arrival: Wheelchair aj1 16:45 Onset of symptoms was October 02, 2018. Risk Assessment: Do you want to hurt yourself aj1 or someone else? Patient reports no desire to harm self or others. Initial Sepsis Screen: Does the patient meet any 2 criteria? No. Patient's initial sepsis screen is negative. Does the patient have a suspected source of infection? No. Patient's initial sepsis screen is negative. Care prior to arrival: None. 16:45 Acuity: IZA 3 aj1 Triage Assessment: 16:50 General: Appears in no apparent distress. uncomfortable, Behavior is calm, cooperative, aj1 appropriate for age. Pain: Complains of pain in pelvis Pain currently is 6 out of 10 on a pain scale. Neuro: Level of Consciousness is awake, alert, obeys commands. Cardiovascular: Patient's skin is warm and dry. Respiratory: Airway is patent Respiratory effort is even, unlabored, Respiratory pattern is regular, symmetrical. Historical: - Allergies: 16:50 anesthesia meds; aj1 16:50 Ciprofloxacin (rash); "like blisters on his feet" per son; aj1 16:50 Codeine; aj1 16:50 Milk/dairy products; aj1 - Home Meds: 16:50 Nuplazid Oral 2 tabs daily [Active]; Vesicare 10 mg Oral tab 1 tab once daily [Active]; aj1 famotidine 40 mg Oral tab 1 tab once daily [Active]; aspirin 325 mg Oral tab 1 tab once daily [Active]; memantine 28 mg Oral once daily [Active]; simvastatin 20 mg Oral tab 1 tab bedtime [Active]; Nuedexta 20-10 mg Oral cap 1 cap daily [Active]; fludrocortisone 0.1 mg oral tab 1 tab once daily [Active]; amlodipine 2.5 mg tab 1 tab Take one tablet daily if SBP <170 [Active]; Carbidopa-Levodopa Oral 2 times per day [Active]; - PMHx: 16:50 Cancer; Hyperlipidemia; Hypertension; hypotension; TIA; aj1 - Immunization history:: Flu vaccine is not up to date. - Social history:: Smoking status: Patient/guardian denies using tobacco. - Ebola Screening: : Patient denies travel to an Ebola-affected area in the 21 days before illness onset. - Family history:: not pertinent. Screenin:55 Abuse screen: Denies threats or abuse. Denies injuries from another. Nutritional hj screening: No deficits noted. Tuberculosis screening: No symptoms or risk factors identified. Fall Risk None identified. Assessment: 16:55 General: Appears in no apparent distress. uncomfortable, Behavior is calm, cooperative, hj appropriate for age. Pain: Complains of pain in groin. Neuro: Level of Consciousness is awake, alert, obeys commands, Oriented to person, place, time, situation, Appropriate for age. Cardiovascular: Capillary refill < 3 seconds Patient's skin is warm and dry. Respiratory: Airway is patent Respiratory effort is even, unlabored, Respiratory pattern is regular, symmetrical. GI: No signs and/or symptoms were reported involving the gastrointestinal system. : Reports pain testicle. EENT: No signs and/or symptoms were reported regarding the EENT system. Derm: No signs and/or symptoms reported regarding the dermatologic system. Musculoskeletal: No signs and/or symptoms reported regarding the musculoskeletal system. 17:45 Reassessment: Patient and/or family updated on plan of care and expected duration. Pain hj level reassessed. Patient is alert, oriented x 3, equal unlabored respirations, skin warm/dry/pink. awaiting results and POC;. 18:48 Reassessment: Patient and/or family updated on plan of care and expected duration. Pain hj level reassessed. Patient is alert, oriented x 3, equal unlabored respirations, skin warm/dry/pink. family in room;. 19:15 Reassessment: Patient appears in no apparent distress at this time. Patient and/or cc3 family updated on plan of care and expected duration. Pain level reassessed. Patient is alert, oriented x 3, equal unlabored respirations, skin warm/dry/pink. Received this male patient from morning shift [employer] as a case of groin pain. With IV cannula gauge 22 at the right hand with ongoing IVF of NS bolus infusing well. 20:00 Reassessment: informed Dr. Rodriguez regarding the high blood pressure reading of the cc3 patient 190/103 mmHg and the relatives wanting to give the patient his anti-hypertensive medication of Amlodipine [address] Rodriguez said he'll review the patient's file and most probably he'll get admitted, relayed the message to the patient's family. 20:16 Reassessment: Patient appears in no apparent distress at this time. Patient and/or cc3 family updated on plan of care and expected duration. Pain level reassessed. Patient is alert, oriented x 3, equal unlabored respirations, skin warm/dry/pink. Patient for admission, awaiting admission orders. 21:20 Reassessment: Patient appears in no apparent distress at this time. Patient and/or cc3 family updated on plan of care and expected duration. Pain level reassessed. Patient is alert, oriented x 3, equal unlabored respirations, skin warm/dry/pink. 22:00 Reassessment: Patient appears in no apparent distress at this time. Patient and/or cc3 family updated on plan of care and expected duration. Pain level reassessed. Patient is alert, oriented x 3, equal unlabored respirations, skin warm/dry/pink. pilot plant research technician came and extracted bloods for repeat cardiac enzyme Troponin. 22:30 Reassessment: second set of serial ECG done as ordered and reviewed by Dr. Hahn. cc3 23:00 Reassessment: Patient appears in no apparent distress at this time. Patient and/or cc3 family updated on plan of care and expected duration. Pain level reassessed. Patient is alert, oriented x 3, equal unlabored respirations, skin warm/dry/pink. 10/03 00:00 Reassessment: Patient appears in no apparent distress at this time. Patient and/or cc3 family updated on plan of care and expected duration. Pain level reassessed. Patient is alert, oriented x 3, equal unlabored respirations, skin warm/dry/pink. Patient transferred to POD 1 bed 24 and report handed over to [facility] for continuity of care. Vital Signs: 10/02 16:50 BP 184 / 79; Pulse 58; Resp 18; Temp 98.0; Pulse Ox 96% on R/A; Weight 90.72 kg (R); aj1 Height 5 ft. 10 in. (177.80 cm) (R); Pain 6/10; 17:45 BP 182 / 76; Pulse 61; Resp 18; Pulse Ox 100% on R/A; hj 18:49 BP 175 / 74; Pulse 60; Resp 18; Pulse Ox 100% on R/A; hj 19:38 BP 195 / 95; Pulse 56; Resp 13; Temp 98.3(O); Pulse Ox 95% on R/A; cc3 20:25 BP 214 / 92; Pulse 55; Resp 14; Pulse Ox 94% on R/A; cc3 20:30 BP 187 / 99; Pulse 55; Resp 13 S; Pulse Ox 94% on R/A; cc3 20:51 BP 163 / 115; Pulse 60; Resp 15 S; Pulse Ox 96% on R/A; cc3 21:40 BP 181 / 90; Pulse 58; Resp 16 S; Pulse Ox 95% on R/A; cc3 22:14 BP 185 / 92; Pulse 60; Resp 19 S; Pulse Ox 95% ; cc3 22:45 BP 160 / 99; Pulse 67; Resp 15 S; Pulse Ox 95% on R/A; cc3 23:01 BP 165 / 101; Pulse 58; Resp 15 S; Pulse Ox 95% on R/A; cc3 10/03 00:00 BP 178 / 87; Pulse 58; Resp 16 S; Temp 98.3(O); Pulse Ox 95% on R/A; cc3 10/02 16:50 Body Mass Index 28.70 (90.72 kg, 177.80 cm) aj1 ED Course: 10/02 16:39 Patient arrived in ED. mr 16:39 Bolivar Velez MD is Private Physician. mr 16:45 Triage completed. aj1 16:50 Arm band placed on Patient placed in an exam room. aj1 16:52 Kemal Ulloa RN is Primary Nurse. hj 16:55 Patient has correct armband on for positive identification. Bed in low position. Call hj light in reach. Side rails up X 1. Adult w/ patient. 17:05 EKG done, by ED staff, reviewed by Petros Rodriguez MD. nj 17:12 Petros Rodriguez MD is Attending Physician. [facility] 18:24 X-ray completed. Portable x-ray completed in exam room. Patient tolerated procedure ls3 well. 18:30 Initial lab(s) drawn, by ct, sent to lab. First set of blood cultures drawn by me. hj 18:34 XRAY Chest (1 view) In Process Unspecified. EDMS 18:45 Second set of blood cultures drawn by me. hj 18:47 Inserted saline lock: 22 gauge in right forearm, using aseptic technique. Blood hj collected. 20:15 Bolivar Velez MD is Hospitalizing Provider. [facility] 10/03 00:00 Report given to [facility]. cc3 10:23 EKG done, by nutrition technician. reviewed by Nirmal Jimenez MD. at1 Administered Medications: 10/02 17:54 Drug: NS 0.9% 500 ml Route: IV; Rate: bolus; Site: right forearm; hj 18:45 Follow up: Response: No adverse reaction; IV Status: Completed infusion; IV Intake: cc3 500ml 18:46 Drug: NS 0.9% 1000 ml Route: IV; Rate: 125 ml/hr; Site: right forearm; hj 20:30 Follow up: Response: No adverse reaction; IV Status: Infusion continued upon admission cc3 20:25 Drug: hydrALAZINE 5 mg Route: IV; Rate: per protocol; Site: right forearm; cc3 20:30 Follow up: Response: No adverse reaction; Blood pressure is lowered; IV Status: cc3 Completed infusion 21:00 Drug: Pepcid 20 mg Route: IVP; Site: right hand; cc3 21:30 Follow up: Response: No adverse reaction cc3 21:05 Drug: Solu-CORTEF 100 mg Route: IVP; Site: right hand; cc3 21:30 Follow up: Response: No adverse reaction cc3 21:06 Drug: Rocephin - (cefTRIAXone) 1 grams Route: IVPB; Infused Over: 30 mins; Site: right cc3 hand; 21:30 Follow up: Response: No adverse reaction; IV Status: Completed infusion; IV Intake: 43qeqx7 21:40 Drug: Flagyl 500 mg Volume: 100 ml; Route: IVPB; Rate: 200 ml/hr; Infused Over: 30 cc3 mins; Site: right hand; 22:10 Follow up: Response: No adverse reaction; IV Status: Completed infusion; IV Intake: cc3 100ml 21:45 Drug: hydrALAZINE 10 mg Route: PO; cc3 22:00 Follow up: Response: No adverse reaction; Blood pressure is lowered cc3 21:45 Drug: Norvasc 5 mg Route: PO; cc3 22:00 Follow up: Response: No adverse reaction cc3 21:50 Drug: Dulcolax Suppository 10 mg Route: MA; cc3 23:46 Follow up: Response: No adverse reaction cc3 Intake: 18:45 IV: 500ml; Total: 500ml. cc3 21:30 IV: 50ml; Total: 550ml. cc3 22:10 IV: 100ml; Total: 650ml. cc3 Outcome: 20:16 Decision to Hospitalize by Provider. [facility] 10/03 11:07 Patient left the ED. aj1 Signatures: Dispatcher [employer] EDSD Elizabeth Masr RN RN aj1 Petros Rodriguez MD MD cha Rivera, Mariluz mr ReesVelasquezMarcelina, court usher EKG Tat1 Kemal Ulloa RN RN hj Thompson, Moriah nj Deepa Manuel cc3 Flash Franco3 Corrections: (The following items were deleted from the chart) 10/02 22:56 20:00 Reassessment: informed Dr. Rodriguez regarding the high blood pressure reading of cc3 the patient and the relatives wanting to give the patient his anti-hypertensive medication of Amlodipine 2.[address] Rodriguez said he'll review the patient's file and most probably he'll get admitted, relayed the message to the patient's family. cc3 10/03 01:43 01:42 Report given to [facility] luciano cc3
--- NOTE | 2018-10-02 20:16 | EDPHYS ---
Physician Documentation [facility] Name: Jere Jensen Age: 88 yrs Sex: Male : 1930 Arrival Date: 10/02/2018 Time: 16:39 Bed 24 Private MD: Bolivar Velez C ED Physician Petros Rodriguez HPI: 10/02 17:46 This 88 yrs old Male presents to ER via Wheelchair with complaints of Groin lilia Pain. 17:46 This 88 yrs old Male presents to ER via Wheelchair with complaints of Groin lilia Pain. 17:46 The patient presents with abdominal pain. Onset: The symptoms/episode began/occurred 3 lilia day(s) ago. wea, syncope x2. The patient has experienced syncope. Onset: The symptoms/episode began/occurred 3 day(s) ago. Duration: The patient has had multiple episodes, that last 25 second(s). Onset: The symptoms/episode began/occurred today. Historical: - Allergies: 16:50 anesthesia meds; aj1 16:50 Ciprofloxacin (rash); "like blisters on his feet" per son; aj1 16:50 Codeine; aj1 16:50 Milk/dairy products; aj1 - Home Meds: 16:50 Nuplazid Oral 2 tabs daily [Active]; Vesicare 10 mg Oral tab 1 tab once daily [Active]; aj1 famotidine 40 mg Oral tab 1 tab once daily [Active]; aspirin 325 mg Oral tab 1 tab once daily [Active]; memantine 28 mg Oral once daily [Active]; simvastatin 20 mg Oral tab 1 tab bedtime [Active]; Nuedexta 20-10 mg Oral cap 1 cap daily [Active]; fludrocortisone 0.1 mg oral tab 1 tab once daily [Active]; amlodipine 2.5 mg tab 1 tab Take one tablet daily if SBP <170 [Active]; Carbidopa-Levodopa Oral 2 times per day [Active]; - PMHx: 16:50 Cancer; Hyperlipidemia; Hypertension; hypotension; TIA; aj1 - Immunization history:: Flu vaccine is not up to date. - Social history:: Smoking status: Patient/guardian denies using tobacco. - Ebola Screening: : Patient denies travel to an Ebola-affected area in the 21 days before illness onset. - Family history:: not pertinent. ROS: 17:46 Constitutional: Negative for fever, chills, and weight loss, Eyes: Negative for injury, lilia pain, redness, and discharge, ENT: Negative for injury, pain, and discharge, Neck: Negative for injury, pain, and swelling, Cardiovascular: Negative for chest pain, palpitations, and edema, Respiratory: Negative for shortness of breath, cough, wheezing, and pleuritic chest pain, Back: Negative for injury and pain, : Negative for injury, bleeding, discharge, and swelling, MS/Extremity: Negative for injury and deformity, Skin: Negative for injury, rash, and discoloration, Psych: Negative for depression, anxiety, suicide ideation, homicidal ideation, and hallucinations, Allergy/Immunology: Negative for hives, rash, and allergies, Endocrine: Negative for neck swelling, polydipsia, polyuria, polyphagia, and marked weight changes, Hematologic/Lymphatic: Negative for swollen nodes, abnormal bleeding, and unusual bruising. 17:46 Abdomen/GI: Positive for abdominal pain, of the right lower quadrant and left lower quadrant. 17:46 Neuro: Positive for altered mental status, syncope, weakness. Exam: 17:46 Constitutional: This is a well developed, well nourished patient who is awake, alert, lilia and in no acute distress. Head/Face: Normocephalic, atraumatic. Eyes: Pupils equal round and reactive to light, extra-ocular motions intact. Lids and lashes normal. Conjunctiva and sclera are non-icteric and not injected. Cornea within normal limits. Periorbital areas with no swelling, redness, or edema. ENT: Nares patent. No nasal discharge, no septal abnormalities noted. Tympanic membranes are normal and external auditory canals are clear. Oropharynx with no redness, swelling, or masses, exudates, or evidence of obstruction, uvula midline. Mucous membranes moist. Neck: Trachea midline, no thyromegaly or masses palpated, and no cervical lymphadenopathy. Supple, full range of motion without nuchal rigidity, or vertebral point tenderness. No Meningismus. Chest/axilla: Normal chest wall appearance and motion. Nontender with no deformity. No lesions are appreciated. Cardiovascular: Regular rate and rhythm with a normal S1 and S2. No gallops, murmurs, or rubs. Normal PMI, no JVD. No pulse deficits. Respiratory: Lungs have equal breath sounds bilaterally, clear to auscultation and percussion. No rales, rhonchi or wheezes noted. No increased work of breathing, no retractions or nasal flaring. Abdomen/GI: Soft, non-tender, with normal bowel sounds. No distension or tympany. No guarding or rebound. No evidence of tenderness throughout. Back: No spinal tenderness. No costovertebral tenderness. Full range of motion. Skin: Warm, dry with normal turgor. Normal color with no rashes, no lesions, and no evidence of cellulitis. MS/ Extremity: Pulses equal, no cyanosis. Neurovascular intact. Full, normal range of motion. Neuro: Awake and alert, GCS 15, oriented to person, place, time, and situation. Cranial nerves II-XII grossly intact. Motor strength 5/5 in all extremities. Sensory grossly intact. Cerebellar exam normal. Normal gait. Psych: Awake, alert, with orientation to person, place and time. Behavior, mood, and affect are within normal limits. Vital Signs: 16:50 BP 184 / 79; Pulse 58; Resp 18; Temp 98.0; Pulse Ox 96% on R/A; Weight 90.72 kg (R); aj1 Height 5 ft. 10 in. (177.80 cm) (R); Pain 6/10; 17:45 BP 182 / 76; Pulse 61; Resp 18; Pulse Ox 100% on R/A; hj 18:49 BP 175 / 74; Pulse 60; Resp 18; Pulse Ox 100% on R/A; hj 19:38 BP 195 / 95; Pulse 56; Resp 13; Temp 98.3(O); Pulse Ox 95% on R/A; cc3 20:25 BP 214 / 92; Pulse 55; Resp 14; Pulse Ox 94% on R/A; cc3 20:30 BP 187 / 99; Pulse 55; Resp 13 S; Pulse Ox 94% on R/A; cc3 20:51 BP 163 / 115; Pulse 60; Resp 15 S; Pulse Ox 96% on R/A; cc3 21:40 BP 181 / 90; Pulse 58; Resp 16 S; Pulse Ox 95% on R/A; cc3 22:14 BP 185 / 92; Pulse 60; Resp 19 S; Pulse Ox 95% ; cc3 22:45 BP 160 / 99; Pulse 67; Resp 15 S; Pulse Ox 95% on R/A; 3 23:01 BP 165 / 101; Pulse 58; Resp 15 S; Pulse Ox 95% on R/A; [facility] 10/03 00:00 BP 178 / 87; Pulse 58; Resp 16 S; Temp 98.3(O); Pulse Ox 95% on R/A; 3 10/02 16:50 Body Mass Index 28.70 (90.72 kg, 177.80 cm) aj1 MDM: 10/02 17:12 Patient medically screened. [facility] 17:48 Data reviewed: vital signs, nurses notes, lab test result(s), EKG, radiologic studies, [facility] CT scan, plain films. 10/02 17:45 Order name: Basic Metabolic Panel; Complete Time: 20:08 [facility] 10/02 17:45 Order name: CBC with Diff; Complete Time: 20:08 [facility] 10/02 17:45 Order name: LFT's; Complete Time: 20:08 [facility] 10/02 17:45 Order name: Magnesium; Complete Time: 20:08 [facility] 10/02 17:45 Order name: NT PRO-BNP; Complete Time: 20:08 [facility] 10/02 17:45 Order name: PT-INR; Complete Time: 20:08 [facility] 10/02 17:45 Order name: Troponin (emerg Dept Use Only); Complete Time: 20:08 [facility] 10/02 17:45 Order name: Lipase; Complete Time: 20:08 [facility] 10/02 17:45 Order name: Blood Culture Adult (2) [facility] 10/02 17:45 Order name: Procalcitonin; Complete Time: 20:08 [facility] 10/02 17:45 Order name: Urine Culture [facility] 10/02 17:45 Order name: Lactate; Complete Time: 20:08 [facility] 10/02 19:27 Order name: Urine Dipstick--Ancillary (enter results); Complete Time: 20:54 ms 10/02 20:34 Order name: Basic Metabolic Panel [facility] 10/02 17:45 Order name: XRAY Chest (1 view); Complete Time: 20:08 [facility] 10/02 17:45 Order name: CT Abd/Pelvis - W/Contrast [facility] 10/02 17:45 Order name: CT Head Brain wo Cont [facility] 10/02 20:34 Order name: Basic Metabolic Panel; Complete Time: 10:29 [facility] 10/02 20:34 Order name: CBC with Automated Diff [facility] 10/02 20:34 Order name: CBC with Automated Diff; Complete Time: 10: [facility] 10/02 20:34 Order name: Troponin I [facility] 10/02 20:34 Order name: Troponin I; Complete Time: 10: [facility] 10/02 20:34 Order name: Troponin I; Complete Time: 10: [facility] 10/02 20:35 Order name: Chest Single View [facility] 10/02 20:35 Order name: Chest Single View; Complete Time: 10: [facility] 10/02 21:08 Order name: CT; Complete Time: 21:15 [facility] 10/02 21:19 Order name: CT; Complete Time: 21:20 [facility] 10/03 02:35 Order name: Troponin (emerg Dept Use Only) tl2 10/03 03:16 Order name: Troponin (Emerg Dept Use Only); Complete Time: 10: [facility] 10/02 17:45 Order name: EKG; Complete Time: 17:46 [facility] 10/02 17:45 Order name: Cardiac monitoring; Complete Time: 17:55 [facility] 10/02 17:45 Order name: EKG - Nurse/Tech; Complete Time: 17:48 [facility] 10/02 17:45 Order name: IV Saline Lock; Complete Time: 18:47 [facility] 10/02 17:45 Order name: Labs collected and sent; Complete Time: 18:47 [facility] 10/02 17:45 Order name: O2 Per Protocol; Complete Time: 17:55 [facility] 10/02 17:45 Order name: O2 Sat Monitoring; Complete Time: 17:55 [facility] 10/02 17:45 Order name: Urine Dipstick-Ancillary (obtain specimen); Complete Time: 21:17 [facility] 10/02 20:34 Order name: CONS Physician Consult [facility] 10/02 20:34 Order name: CONS Physician Consult [facility] 10/02 20:34 Order name: EKG Electrocardiogram [facility] 10/02 20:34 Order name: EKG Electrocardiogram [facility] 10/02 20:34 Order name: EKG Electrocardiogram [facility] 10/02 20:34 Order name: EKG Electrocardiogram [facility] Administered Medications: 17:54 Drug: NS 0.9% 500 ml Route: IV; Rate: bolus; Site: right forearm; 18:45 Follow up: Response: No adverse reaction; IV Status: Completed infusion; IV Intake: cc3 500ml 18:46 Drug: NS 0.9% 1000 ml Route: IV; Rate: 125 ml/hr; Site: right forearm; hj 20:30 Follow up: Response: No adverse reaction; IV Status: Infusion continued upon admission cc3 20:25 Drug: hydrALAZINE 5 mg Route: IV; Rate: per protocol; Site: right forearm; cc3 20:30 Follow up: Response: No adverse reaction; Blood pressure is lowered; IV Status: cc3 Completed infusion 21:00 Drug: Pepcid 20 mg Route: IVP; Site: right hand; cc3 21:30 Follow up: Response: No adverse reaction cc3 21:05 Drug: Solu-CORTEF 100 mg Route: IVP; Site: right hand; cc3 21:30 Follow up: Response: No adverse reaction cc3 21:06 Drug: Rocephin - (cefTRIAXone) 1 grams Route: IVPB; Infused Over: 30 mins; Site: right cc3 hand; 21:30 Follow up: Response: No adverse reaction; IV Status: Completed infusion; IV Intake: [id number] 21:40 Drug: Flagyl 500 mg Volume: 100 ml; Route: IVPB; Rate: 200 ml/hr; Infused Over: 30 cc3 mins; Site: right hand; 22:10 Follow up: Response: No adverse reaction; IV Status: Completed infusion; IV Intake: cc3 100ml 21:45 Drug: hydrALAZINE 10 mg Route: PO; cc3 22:00 Follow up: Response: No adverse reaction; Blood pressure is lowered cc3 21:45 Drug: Norvasc 5 mg Route: PO; cc3 22:00 Follow up: Response: No adverse reaction cc3 21:50 Drug: Dulcolax Suppository 10 mg Route: TX; cc3 23:46 Follow up: Response: No adverse reaction 3 Disposition: 10/02/18 20:16 Hospitalization ordered by Bolivar Velez for Inpatient Admission. Preliminary diagnosis are Weakness, Syncope and collapse, Essential (primary) hypertension, Pleural effusion in conditions classified elsewhere, Abdominal tenderness, Cystitis. - Bed requested for Telemetry/MedSurg (Inpatient). - Status is Inpatient Admission. aj1 - Condition is Fair. - Problem is new. - Symptoms have improved. UTI on Admission? Yes Signatures: Dispatcher [employer] EDElizabeth Reeves RN RN aj1 Shannon Villatoro RN RAF Elza Aguilar RN Petros Garcia MD MD cha Joaquin, Henry, RN RN Deepa Manuel cc3 Corrections: (The following items were deleted from the chart) 20:23 20:16 Hospitalization Ordered by A Agustin VARELA for Inpatient Admission. Preliminary diagnosis is Weakness; Syncope and collapse; Essential (primary) hypertension; Pleural effusion in conditions classified elsewhere; Abdominal tenderness; Cystitis. Bed requested for Telemetry/MedSurg (Inpatient). Status is Inpatient Admission. Condition is Fair. Problem is new. Symptoms have improved. UTI on Admission? Yes. [facility] 10/03 09:18 10/02 20:23 10/02/2018 20:16 Hospitalization Ordered by A Agustin VARELA for Inpatient dw Admission. Preliminary diagnosis is Weakness; Syncope and collapse; Essential (primary) hypertension; Pleural effusion in conditions classified elsewhere; Abdominal tenderness; Cystitis. Bed requested for [facility] ER HOLD. Status is Inpatient Admission. Condition is Fair. Problem is new. Symptoms have improved. UTI on Admission? Yes. 10/03 11:07 09:18 10/02/2018 20:16 Hospitalization Ordered by A Agustin VARELA for Inpatient Admission. aj1 Preliminary diagnosis is Weakness; Syncope and collapse; Essential (primary) hypertension; Pleural effusion in conditions classified elsewhere; Abdominal tenderness; Cystitis. Bed requested for Telemetry/MedSurg (Inpatient). Status is Inpatient Admission. Condition is Fair. Problem is new. Symptoms have improved. UTI on Admission? Yes.
[2018-10-02 20:24] LABS: Urine Blood TRACE (NEG); Urine Glucose TRACE (NEG); Urine Protein NEGATIVE (NEG)
[2018-10-02] MEDS ORDERED: HYDRALAZINE HCL 20 MG/ML VIAL ONE (20:25)
[2018-10-02] MEDS ORDERED: CEFTRIAXONE 1000 MG/VIAL ONE (20:25)
[2018-10-02] MEDS ORDERED: NA CHLORIDE 0.9% 50 ML IV ONE (20:26)
[2018-10-02] MEDS ORDERED: FAMOTIDINE 20 MG/2 ML VIAL IV ONE (20:26)
[2018-10-02] MEDS ORDERED: METRONIDAZOLE 500mg IVPB 500 MG/100 ML BAG IV ONE (20:26)
[2018-10-02] MEDS ORDERED: ACETAMINOPHEN 500 MG TAB PO PRN (20:28)
[2018-10-02] MEDS ORDERED: ONDANSETRON 4 MG/2 ML VIAL IV PRN (20:28)
[2018-10-02] MEDS: CARBIDOPA/LEVODOPA 25/100 TAB PO SCH (21:00)
[2018-10-02] MEDS: FAMOTIDINE 20 MG/2 ML VIAL IV SCH (21:00)
[2018-10-02] MEDS ORDERED: HYDROCORTISONE SUC 100 MG INJ ONE (21:03)
--- NOTE | 2018-10-02 21:07 | RAD REPORT ---
EXAM DESCRIPTION: CT - Head Brain Wo Cont - 10/02/2018 8:46 pm CLINICAL HISTORY: Dizziness;Syncope Fall, head injury COMPARISON: Head Brain Wo Cont dated 05/19/2018; Head Brain Wo Cont dated 02/15/2017 TECHNIQUE: All CT scans are performed using dose optimization technique as appropriate and may inclu de automated exposure control or mA/KV adjustment according to patient size. FINDINGS: No intracranial hemorrhage, hydrocephalus or extra-axial fluid collection.Advanced general ized brain atrophy is present with advanced periventricular and deep white matter chronic microvascul ar ischemic changes.No areas of brain edema or evidence of midline shift. The paranasal sinuses and mastoids are clear. The calvarium is intact. IMPRESSION: No acute intracranial abnormality.
--- NOTE | 2018-10-02 21:19 | RAD REPORT ---
EXAM DESCRIPTION: CTAbdomen Pelvis W Contrast - 10/02/2018 8:46 pm CLINICAL HISTORY: Abdominal pain. ABD PAIN COMPARISON: Abdomen Pelvis W Contrast dated 04/13/2018; Lumbar Spine Wo Con dated 02/16/2017 TECHNIQUE: Biphasic CT imaging of the abdomen and pelvis was performed with 100 ml non-ionic IV cont rast. All CT scans are performed using dose optimization technique as appropriate and may include automated exposure control or mA/KV adjustment according to patient size. FINDINGS: Small bilateral calcified pleural plaques are present compatible with previous asbestos ex posure.Small hiatal hernia is present. The liver demonstrates small low-density liver lesions most compatible with cysts. No aggressive live r lesion. The spleen, adrenal glands and kidneys are within normal limits. Mild pancreatic atrophy is present. No bowel obstruction, free air, free fluid or abscess. Prominent fecal retention in the colon. The ap pendix is not identified as a discrete structure, however, no secondary findings of appendicitis are identified. No evidence of significant lymphadenopathy. Multiple surgical clips are present in the pelvis. Chronic L1 compression deformity noted. An acute fracture is not seen. IMPRESSION: No acute intra-abdominal or pelvic finding. Prominent fecal retention in the colon.
[2018-10-02] MEDS ORDERED: BISACODYL 10 MG RECTAL SUPP ONE (22:02)
[2018-10-02] MEDS ORDERED: AMLODIPINE 5 MG TAB ONE (22:03)
[2018-10-03] MEDS: HYDROCORTISONE SUC 100 MG INJ IV SCH ×3 (01:00→17:08)
[2018-10-03 05:25] LABS: Absolute Lymphocytes (CBC) 1.8 K/uL (0.7-4.9); Absolute Monocytes 0.5 K/uL (0.1-1.3); Basophils % 0.6 % (0-1.3); Eosinophils % 0.2 % (0-4.4); Hematocrit 39.2 % (39.6-49.0); Lymphocytes % 24.7 % (15.3-44.8); MCH 31.9 pg (27.0-35.0); MCV 91.7 fL (80-100); MPV 8.4 fL (7.6-11.3); Monocytes % 6.3 % (3.3-12.3); RBC Red Blood Cell Count 4.27 M/uL (4.33-5.43)
[2018-10-03 05:46] LABS: Potassium 3.9 mmol/L (3.5-5.1)
[2018-10-03] MEDS: METRONIDAZOLE 500mg IVPB 500 MG/100 ML BAG IV SCH ×4 (06:00→17:08)
[2018-10-03] MEDS ORDERED: METRONIDAZOLE 500mg IVPB 500 MG/100 ML BAG IV ONE (06:33)
--- NOTE | 2018-10-03 07:33 | EKG ---
Test Date: 2018-10-02 Test Time: 22:37:53 Kier Operator: SUBHA MEASUREMENT RESULTS: Intervals: Rate: 60 UT: 178 QRSD: 92 QT: 470 QTc: 470 [place]: P: 80 UT: 178 QRS: 32 T: 51 INTERPRETIVE STATEMENTS: Normal sinus rhythm Normal ECG Compared to ECG 05/20/2018 09:28:14 Sinus bradycardia no longer present Sinus arrhythmia no longer present Electronically Signed On 10-03-18 07:32:04 TECHNOLOGY SUPPORT ANALYST by Fernando Suarez
--- NOTE | 2018-10-03 07:35 | EKG ---
Test Date: 2018-10-02 Test Time: 16:55:46 Associate Director Of Development: DELILAH MEASUREMENT RESULTS: Intervals: Rate: 60 VT: 158 QRSD: 84 QT: 452 QTc: 452 [place]: P: -10 VT: 158 QRS: 34 T: 77 INTERPRETIVE STATEMENTS: Sinus rhythm with premature atrial complexes Nonspecific ST and T wave abnormality Abnormal ECG Compared to ECG 05/20/2018 09:28:14 Atrial premature complex(es) now present ST (T wave) deviation now present Sinus bradycardia no longer present Sinus arrhythmia no longer present Electronically Signed On 10-03-18 07:33:58 MOLDER APPRENTICE by Fernando Suarez
[2018-10-03] MEDS: ASPIRIN EC 81 MG TAB PO SCH (08:26)
[2018-10-03] MEDS: FAMOTIDINE 20 MG/2 ML VIAL IV SCH (08:26)
[2018-10-03] MEDS: HYDRALAZINE HCL 10 MG TABLET PO SCH ×2 (08:26→21:21)
[2018-10-03] MEDS ORDERED: HYDRALAZINE HCL 10 MG TABLET ONE (08:29)
[2018-10-03] MEDS ORDERED: FAMOTIDINE 20 MG/2 ML VIAL IV ONE (08:29)
[2018-10-03] MEDS ORDERED: AMLODIPINE 5 MG TAB ONE (08:29)
[2018-10-03] MEDS ORDERED: ASPIRIN EC 81 MG TAB PO ONE (08:29)
[2018-10-03] MEDS: CARBIDOPA/LEVODOPA 25/100 TAB PO SCH ×3 (08:53→21:21)
--- NOTE | 2018-10-03 08:56 | RAD REPORT ---
EXAM DESCRIPTION: RAD - Chest Single View - 10/03/2018 6:22 am CLINICAL HISTORY: Chest Pain Chest pain. COMPARISON: Chest Single View dated 10/02/2018; Chest Single View dated 05/19/2018; Chest Single View dated 04/13/2018; Chest Single View dated 07/02/2017 FINDINGS: Portable technique limits examination quality. Calcified pleural plaquing is present bilaterally. Chronic left base pleural and parenchymal opacitie s are seen. The heart is mildly prominent size with a tortuous thoracic aorta. No displaced fractures . IMPRESSION: Stable chest since 10/02/2018.
[2018-10-03] MEDS ORDERED: AMLODIPINE 2.5 MG TAB PO SCH (09:00)
--- NOTE | 2018-10-03 12:40 | EKG ---
Test Date: 2018-10-03 Test Time: 10:07:11 [employer] Ii Assembler: HODA MEASUREMENT RESULTS: Intervals: Rate: 49 ME: 182 QRSD: 84 QT: 514 QTc: 464 [place]: P: 77 ME: 182 QRS: 1 T: 73 INTERPRETIVE STATEMENTS: Marked sinus bradycardia Abnormal ECG Compared to ECG 10/02/2018 22:37:53 Sinus rhythm no longer present Electronically Signed On 10-03-18 12:39:31 YARN MAN by Fernando Suarez
--- NOTE | 2018-10-03 13:51 | RAD REPORT ---
EXAM DESCRIPTION: US - CP - 10/03/2018 1:35 pm CLINICAL HISTORY: Hypotension, syncope COMPARISON: None. TECHNIQUE: Real-time sonographic evaluation of both carotid systems was performed. You scale and Do ppler interrogation were performed with waveform tracing bilaterally. FINDINGS: Normal high resistance waveforms are noted in both external carotid arteries. The common c arotid arteries and internal carotid arteries show normal low resistance waveforms. Calcified plaquing changes are present at each carotid bulb in each proximal internal carotid artery. Visually no significant luminal narrowing is identified. Peak systolic and end diastolic velocity va lues and the ICA/CCA ratios are in the non-hemodynamically significant range. Antegrade flow seen in both vertebral arteries. Velocity values and ratios were recorded and are retained in the patient's imaging records. IMPRESSION: Bilateral carotid bulb and ICA calcified plaquing changes. Currently plaquing changes do not cause significant stenosis.
[2018-10-03] MEDS: MIDODRINE HCL 5 MG TABLET PO SCH ×2 (13:55→21:21)
--- NOTE | 2018-10-03 16:09 | CON ---
An 88-year-old man. Reason For Consult: Blood pressure control. History Of Present Illness: Mr. Jensen has had Parkinson disease for some time. He is on carbidopa and levodopa. He is on some experimental medications for Parkinson disease, but has sometimes when h is systolic blood pressure is over 170 and sometimes when it is 70. If he sits in a chair for a prol onged period of time, his blood pressure is often so low that he faints. They have to drag him out o f the chair and lay him flat before he wakes up. He has been getting Florinef or fludrocortisone onc e a day and amlodipine p.r.n. not daily. He only takes the amlodipine if the systolic blood pressure is 170, but I think even that we might have to stop. I would want to make sure his standing blood p ressure is still too high before we also get amlodipine. I think fludrocortisone probably is not goi ng to do the trick. I will give him a trial while he is here in the hospital of ProAmatine 5 mg 3 ti mes a day and will see if that can support his blood pressure better. Thank you very much for kind referral of Mr. Jensen. I will follow him with you. PABLO/ROSA Voice ID: [id number] Report ID: [id number]
--- NOTE | 2018-10-03 16:10 | ECHO ---
HEIGHT: 5 ft 10 in WEIGHT: 198 lb 0 oz DATE OF STUDY: 10/03/[address]: Petros Rodriguez MD 2-DIMENSIONAL: YES M.MODE: YES DOPPLER: NO COLOR FLOW: NO TDS: NO PORTABLE: NO DEFINITY: NO BUBBLE STUDY: NO DIAGNOSIS: SYNCOPE CARDIAC HISTORY: CATHERIZATION: SURGERY: PROSTHETIC VALVE: PACEMAKER: MEASUREMENTS (cm) DIASTOLIC (NORMALS) SYSTOLIC (NORMALS) IVSd 1.0 (0.6-1.2) LA Diam 4.8 (1.9-4.0) LVEF 48% LVIDd 4.1 (3.5-5.7) LVIDs 3.1 (2.0-3.5) %FS 24% LVPWd 1.2 (0.6-1.2) Ao Diam 3.1 (2.0-3.7) 2 DIMENSIONAL ASSESSMENT: RIGHT ATRIUM: NORMAL LEFT ATRIUM: DILATED RIGHT VENTRICLE: NORMAL LEFT VENTRICLE: NORMAL TRICUSPID VALVE: NORMAL MITRAL VALVE: NORMAL PULMONIC VALVE: NORMAL AORTIC VALVE: SCLEROSIS PERICARDIAL EFFUSION: NONE AORTIC ROOT: NORMAL LEFT VENTRICULAR WALL MOTION: NORMAL. DOPPLER/COLOR FLOW: NOT REQUESTED. COMMENTS: NORMAL LEFT VENTRICULAR EJECTION FRACTION. AORTIC SCLEROSIS. DILATED LEFT ATRIUM. RECOMMEND CARDIAC DOPPLER. TECHNOLOGIST: JERMAINE WOMACK
[2018-10-03] MEDS ORDERED: CEFTRIAXONE/SWI 1gm 1 GM/10 ML SYR IV SCH (21:00)
[2018-10-03] MEDS ORDERED: CEFTRIAXONE 1 GM/NS 50 ML 1 GM/50 ML BAG IV SCH (21:00)
[2018-10-03 21:40] VITALS: O2SAT 96
[2018-10-03 22:35] VITALS: BMI 28.4
[2018-10-04] MEDS: METRONIDAZOLE 500mg IVPB 500 MG/100 ML BAG IV SCH ×2 (00:03→05:12)
[2018-10-04] MEDS: HYDROCORTISONE SUC 100 MG INJ IV SCH (00:53)
--- NOTE | 2018-10-04 06:25 | HP ---
Date of Admission: 10/03/2018 Chief Complaint: Fainting spell from abdominal pain. History Of Present Illness: This is an 88-year-old male patient who lives at home with his , has history of orthostatic hypotension, and takes his medications regularly. He has had multiple episod es of fainting type of episodes and had 2 episodes in last 2 weeks, and each time he has this faintin g type of episode. He is either sitting or standing. When he has such episode, he lies down as per my instruction given to , and he recovers immediately. Yesterday, he came into emergency room wi th lower abdominal pain along with this fainting episode and he has some chronic constipation problem . No fever, chills, nausea, vomiting. No bleeding. After he was evaluated in the ER, he was admitt ed to hospital. I saw him in the emergency room this morning. His was at bedside with him. Medications: List reviewed. Review of Systems: GI: As mentioned above. Cardiovascular: As mentioned above. All other systems reviewed and negative. Allergies: TO CIPRO, CODEINE, MILK OR MILK PRODUCTS. Family History: Not pertinent. Social History: Negative for smoking, alcohol use. Past Surgical History: Prostatectomy, right hip surgery, appendectomy, arthroscopic knee surgery, he rnia repair, bladder surgery for bladder cancer. Past Medical History: Significant for hypertension, bladder cancer, prostate cancer, hyperlipidemia, osteoarthritis at multiple sites, gastroesophageal reflux disease, restless legs syndrome, impaired fasting glucose, depression, lumbar spinal stenosis, cervical spinal stenosis, and orthostatic hypote nsion. Physical Examination: Vital Signs: This morning last temperature was 98.3, pulse 50, respiratory rate 18, blood pressure 1 43/73, height 5 feet 10 inch, weight 198 pounds. General: Awake, alert, oriented, not in distress. HEENT: Head atraumatic, normocephalic. Conjunctivae nonerythematous. Sclerae white. Mouth, no thr ush or edema noted. Ears/Nose, no mass, lesion, discharge noted. Neck: Supple. No JVD, lymph nodes, bruit, thyromegaly noted. Lungs: Bilateral good equal air entry. Clear to auscultation. No rhonchi. No rales. Heart: Normal heart sounds, no murmur or gallop. Abdomen: Soft, bowel sounds normal. No guarding, rigidity, tenderness, mass, hepatosplenomegaly, dis tention, or bruit noted. Extremities: No leg edema. No calf tenderness. Skin: No rash, ulcer, cellulitis. Lymphatics: No lymph node enlargement in neck, supraclavicular, infraclavicular region. Neuro: No focal neurological deficit. Chest: Unremarkable. External Genitalia: Deferred. Rectal: Deferred. Laboratory Data: Yesterday white count 7.8, hemoglobin 14.8, platelets 180. This morning white coun t 7.3, hemoglobin 13.6, platelets 177. Yesterday sodium 144, potassium 4, chloride 109, bicarb 27, B UN 25, creatinine 1.30, glucose 106. Liver function tests unremarkable. Troponin 0.04. Procalciton in less than 0.05. Urinalysis: Trace esterase, otherwise negative. CAT scan of the head was negati ve for any acute intracranial changes. Chest x-ray, small pleural effusion. No acute changes. His CAT scan of the abdomen and pelvis shows evidence of prominent fecal retention in the colon. No acut e intraabdominal findings. Echocardiogram done today shows ejection fraction 48%. Artery Doppler sh ows bilateral plaquing. No hemodynamically significant stenotic lesion. Impression: 1.Syncope. 2.Orthostatic hypotension. 3.Constipation. 4.Rule out diverticulitis. 5.Hypertension. 6.Prostate cancer. 7.Bladder cancer. 8.Hyperlipidemia. 9.Osteoarthritis, multiple sites. 10.Gastroesophageal reflux disease. 11.Restless legs syndrome. 12.Depression. 13.Impaired fasting glucose. 14.Cervical spondylosis. 15.Lumbar spondylosis. Plan: Admit the patient to hospital for further evaluation and management of this problem. We will go ahead and continue home medications per order. Consult Physical Therapy, consult Cardiology. Det ails on plan of treatment discussed with the patient. DANIEL/MODL Voice ID: [id number]
[2018-10-04] MEDS ORDERED: AMLODIPINE 5 MG TAB PO ONE (07:56)
[2018-10-04] MEDS: CARBIDOPA/LEVODOPA 25/100 TAB PO SCH (08:42)
[2018-10-04] MEDS: HYDRALAZINE HCL 10 MG TABLET PO SCH (08:42)
[2018-10-04] MEDS: ASPIRIN EC 81 MG TAB PO SCH (08:42)
[2018-10-04] MEDS: MIDODRINE HCL 5 MG TABLET PO SCH (08:43)
[2018-10-04 09:01] VITALS: TEMP 97.2
[2018-10-04 09:46] VITALS: BP 147/67
--- NOTE | 2018-10-05 19:11 | DS ---
Date of Discharge: 10/04/2018 Disposition: Discharged to go home. Physical Examination: HEENT: Unremarkable. Lungs: Clear to auscultation. Heart: Sounds normal. Abdomen: Soft, bowel sounds normal. No guarding, rigidity, tenderness, or distention. Extremities: No leg edema. Hospital Course: This is an 88-year-old male patient admitted to the hospital with fainting spell an d abdominal pain. Please see dictated H and P for more information. The patient was evaluated in [facility] emergency room, admitted to the hospital and after he was evaluated in the ER, he was admitted to [facility]. He also has some cough, chest congestion, coughing up some yellowish-colored mucus in l ast few days. IV antibiotics were started. The CAT scan of the abdomen showed some evidence of cons tipation. He takes stool softener daily. I did advice the patient's to increase the dose of st ool softener. He takes 1 pill daily and I have advised her to give him 2 pills daily and also to use MiraLAX daily as needed. Cardiology consultation was requested during this hospitalization. His ec ho showed ejection fraction 48%. Carotid Doppler showed minimum plaque buildup. No hemodynamically significant stenotic lesion. The patient has significant orthostatic hypotension problem. In the ca st, he was on midodrine and that did not work as well as expected, so we changed over to Florinef. Drew Suarez from Cardiology saw him and he recommended the patient to try midodrine. I am not entirely sure if Dr. Suarez is aware of the patient trying midodrine in the past, but in any case, we will tr y it again because Florinef is not helping him, so the patient does have midodrine at home and u nderstand how to use this medication, how to give it to him 3 times a day as prescribed and we will s ee how he does with this. This morning when I saw him, he was very agitated and upset for no obvious reason. Of course, was at bedside. His blood pressure was elevated. Amlodipine 5 mg p.o. x1 dose was given for high blood pressure and his blood pressure hour after the dose came down, and the patient was discharged to go home in stable condition. The patient is lately sleeping more at home l ately and not quite as active as before and I did inform that this is unfortunately going to be expected and probably continue to decline as the time goes on and we did talk about at some point she will need to think about putting him in a skilled nursing and obviously she does not want to do that un til it is absolutely necessary, so at this point, the patient will continue to stay home with . Discharge Medications And Instructions: Continue prior home medication except stop Florinef and star t midodrine, take antibiotic cefuroxime 500 mg twice a day for 5 days. Follow up at my office in 1 w [place]. Discharge Diagnoses: 1.Syncope. 2.Orthostatic hypotension. 3.Acute bronchitis. 4.Constipation. 5.Hypertension. 6.Prostate cancer. 7.Bladder cancer. 8.Hyperlipidemia. 9.Osteoarthritis, multiple sites. 10.Gastroesophageal reflux disease. 11.Restless legs syndrome. 12.Depression. 13.Impaired fasting glucose. 14.Cervical spondylosis. 15.Lumbar spondylosis. DANIEL/MODL Voice ID: [id number] Report ID: [id number]
== END 2018-10-04 10:00 | disposition home or self-care (01) | DRG 312 ==
LOC: ER 16:35 → ERHOLD 20:23 → 4TH 10-03 10:35
PROVIDERS: ADMIT Internal Medicine; ATTEND Internal Medicine
DX: R55 Syncope and collapse (principal); I95.1 Orthostatic hypotension; J20.9 Acute bronchitis, unspecified; K59.00 Constipation, unspecified; I10 Essential (primary) hypertension; Z85.46 Personal history of malignant neoplasm of prostate; Z85.51 Personal history of malignant neoplasm of bladder; E78.5 Hyperlipidemia, unspecified; M19.90 Unspecified osteoarthritis, unspecified site; K21.9 Gastro-esophageal reflux disease without esophagitis; G25.81 Restless legs syndrome; F32.9 Major depressive disorder, single episode, unspecified; M47.892 Other spondylosis, cervical region; M47.896 Other spondylosis, lumbar region
CPT/HCPCS: 36415; 70450; 71045; 74177; 80048; 80076; 81003; 83605; 83690; 83735; 83880; 84145; 84484; 85025; 85610; 87040; 87086; 87088; 93005; 93307; 93880; 99284; J0360; J0696; J1720; J2405; J7030; Q9967

== ENCOUNTER 2018-10-06 14:34 | Emergency (ER) | payer OTHER ==
--- OUTSIDE RECORDS SUMMARY | 2018-10-06 14:37 | XMS REPORT ---
:1930 Author Organization [facility] Address [address] [place] [address] Dr. Lozano [address] [place] [address] Care Team Providers Name Role Phone JUAN FRANCISCO ENRIQUEZ Unavailable Unavailable Problems This patient has no known problems. Allergies, Adverse Reactions, Alerts This patient has no known allergies or adverse reactions. Medications This patient has no known medications. Results Test Description Test Time Test Comments Text Results Atomic Results Result Comments TISSUE EXAM 2017-12-27 15:21:00 Surgical Pathology Report Case: [id number] Authorizing Provider: Juan Francisco Enriquez MD Collected: 12/24/2017 1150 Ordering Location: [facility] PER[facility] Received: 12/24/2017 1341 SERVICES Pathologist: [...] OR MALIGNANCY Signing Pathologist Direct Phone Line: [phone] signed by Bayron Crystal MD on 12/27/2017 at 3:21 [id number] X [id number], [id number] neoplasm of urinary bladderA. Left bladder neck [...] Value Reference Range Comments CULTURE (BEAKER) (test wusi=1805) See comment <10,000 col/mL Gram Negative Ro50-59,000 col/mL skin floraCOMPREHENSIVE METABOLIC [id number] 16:04:00 Test Item Value Reference Range Comments TOTAL PROTEIN (BEAKER) 7.4 gm/dL 6.0-8.3 (test yzhr=388) ALBUMIN (BEAKER) (test 3.9 g/dL 3.5-5.0 wdon=1707) ALKALINE PHOSPHATASE 76 U/L 40-150 (BEAKER) (test ybcu=561) BILIRUBIN TOTAL (BEAKER) 0.9 mg/dL 0.2-1.2 (test stub=837) SODIUM (BEAKER) (test 140 meq/L 136-145 bifb=790) POTASSIUM (BEAKER) (test 4.1 meq/L 3.5-5.1 pwtb=436) CHLORIDE (BEAKER) (test 104 meq/L 98-107 bzdr=227) CO2 (BEAKER) (test 26 meq/L 22-29 gynw=549) BLOOD UREA NITROGEN 21 mg/dL 7-21 (BEAKER) (test cbws=980) CREATININE (BEAKER) (test 1.40 mg/dL 0.57-1.25 nkns=937) GLUCOSE RANDOM (BEAKER) 147 mg/dL 70-105 (test jvfr=085) CALCIUM (BEAKER) (test 9.0 mg/dL 8.4-10.2 tdnu=646) AST (SGOT) (BEAKER) (test 20 U/L 5-34 glhz=319) ALT (SGPT) (BEAKER) (test 16 U/L 6-55 octd=857) EGFR (BEAKER) (test 48 mL/min/1.73 sq m ESTIMATED GFR IS NOT urim=0420) ACCURATE CREATININE CLEARANCE IN PREDICTING GLOMERULAR FILTRATION RATE. ESTIMATED GFR IS NOT APPLICABLE FOR DIALYSIS PATIENTS. CBC W/PLT COUNT & AUTO [id number] 15:55:00 Test Item Value Reference Range Comments WHITE BLOOD CELL COUNT (BEAKER) (test kxio=715) 8.7 K/ L 4.0-10.0 RED BLOOD CELL COUNT (BEAKER) (test iixp=569) 4.86 M/ L 4.20-5.80 HEMOGLOBIN (BEAKER) (test xxsl=582) 15.2 GM/DL 13.0-16.8 HEMATOCRIT (BEAKER) (test cmwy=933) 45.2 % 40.0-50.0 MEAN CORPUSCULAR VOLUME (BEAKER) (test vpje=692) 93.1 fL 82.0-98.0 MEAN CORPUSCULAR HEMOGLOBIN (BEAKER) (test 31.2 pg 27.0-33.0 enre=108) MEAN CORPUSCULAR HEMOGLOBIN CONC (BEAKER) (test 33.5 GM/DL 32.0-36.0 vltp=768) RED CELL DISTRIBUTION WIDTH (BEAKER) (test 12.3 % 10.3-14.2 lgxq=061) PLATELET COUNT (BEAKER) (test tsep=999) 151 K/CU MM 150-430 MEAN PLATELET VOLUME (BEAKER) (test gezj=770) 7.0 fL 6.5-10.5 NUCLEATED RED BLOOD CELLS (BEAKER) (test 0 /100 WBC 0-0 ktid=534) NEUTROPHILS RELATIVE PERCENT (BEAKER) (test 67 % wbhi=536) LYMPHOCYTES RELATIVE PERCENT (BEAKER) (test 22 % axbr=181) MONOCYTES RELATIVE PERCENT (BEAKER) (test 10 % dtsk=287) EOSINOPHILS RELATIVE PERCENT (BEAKER) (test 1 % ruvf=933) BASOPHILS RELATIVE PERCENT (BEAKER) (test 0 % fuwq=368) NEUTROPHILS ABSOLUTE COUNT (BEAKER) (test 5.86 K/ L 1.80-8.00 jrva=824) LYMPHOCYTES ABSOLUTE COUNT (BEAKER) (test 1.88 K/ L 1.48-4.50 oksw=477) MONOCYTES ABSOLUTE COUNT (BEAKER) (test 0.84 K/ L 0.00-1.30 yxom=299) EOSINOPHILS ABSOLUTE COUNT (BEAKER) (test 0.12 K/ L 0.00-0.50 hdtp=535) BASOPHILS ABSOLUTE COUNT (BEAKER) (test 0.03 K/ L 0.00-0.20 clfo=744) [id number] 15:54:00 Test Item Value Reference Range Comments PARTIAL THROMBOPLASTIN TIME (BEAKER) (test 32.3 seconds 22.5-36.0 ijjr=209) PROTHROMBIN TIME/[id number] 15:53:00 Test Item Value Reference Range Comments PROTIME (BEAKER) (test drhr=076) 14.7 seconds 11.7-14.7 INR (BEAKER) (test cozi=236) 1.2 <=5.9 RECOMMENDED COUMADIN/WARFARIN INR THERAPY RANGESSTANDARD DOSE: 2.0 - 3.0 Includes: PROPHYLAXIS forvenous thrombosis, systemic embolization; TREATMENT for venous thrombosis and/or pulmonary embolus.HIGH RISK: Target INR is 2.5-3.5 for patients with mechanical heart valves.URINALYSIS W/ [id number] 15 :40:00 Test Item Value Reference Range Comments COLOR (BEAKER) (test zlgm=330) Yellow CLARITY (BEAKER) (test qedl=814) Clear SPECIFIC GRAVITY UA (BEAKER) (test txyl=742) 1.017 1.001-1.035 PH UA (BEAKER) (test ntgd=043) 6.5 5.0-8.0 PROTEIN UA (BEAKER) (test gazm=990) Negative Negative GLUCOSE UA (BEAKER) (test xwes=407) Negative Negative KETONES UA (BEAKER) (test akgq=181) Negative Negative BILIRUBIN UA (BEAKER) (test icat=175) Negative Negative BLOOD UA (BEAKER) (test jafn=288) Negative Negative NITRITE UA (BEAKER) (test bvpn=474) Negative Negative LEUKOCYTE ESTERASE UA (BEAKER) (test xfbu=932) Trace Negative UROBILINOGEN UA (BEAKER) (test zoie=027) 3.0 mg/dL 0.2-1.0 RBC UA (BEAKER) (test gtyu=860) 1 /HPF WBC UA (BEAKER) (test obal=486) 2 /HPF SQUAMOUS EPITHELIAL (BEAKER) (test idae=422) < /HPF SOURCE(BEAKER) (test sjfi=2741)
--- OUTSIDE RECORDS SUMMARY | 2018-10-06 14:37 | XMS REPORT | Clinical Summary ---
:1930 Author Organization [facility] Address [address] [place] [address] Care Team Providers Name Role Phone Shaka [...] Pre-Admission Resource, Oqmt Testing Preadmit Phone after 10/05/2017 Social History Tobacco Use Types Packs/Day Years [...] Taken Blood Pressure 146/82 12/24/2017 1:30 PM [facility] Pulse 58 12/24/2017 1:30 PM [facility] Temperature 36.3 C (97.3 F) 12/24/2017 12:37 PM [facility] Respiratory Rate 18 12/24/2017 1:30 PM [facility] Oxygen Saturation 95% 12/24/2017 1:30 PM [facility] Inhaled Oxygen Concentration - - Weight 89.8 kg (198 lb) 12/24/2017 9:48 AM [facility] Height 177.8 cm (5' 10") 12/24/2017 9:48 AM [facility] Body Mass Index 28.41 12/24/2017 9:48 AM [facility] Plan of Treatment Not on file Procedures Procedure Name Priority Date/Time Associated Diagnosis Comments TISSUE EXAM AP Routine 12/24/2017 11:50 AM Results for this [facility] procedure are in the results section. CYSTOSCOPY,TURBT 12/24/2017 11:05 AM Malignant neoplasm [facility] of urinary bladder, unspecified site (HCC) Case Notes PER [facility] TO USE RM 1 Special Needs (CONSIDER SPINAL ANESTHESIA) CYSTOSCOPY,BLADDER BIOPSY 12/24/2017 11:05 AM [facility] Malignant neoplasm of urinary bladder, unspecified site (HCC) Case Notes PER [facility] TO USE RM 1 Special Needs (CONSIDER SPINAL ANESTHESIA) CYSTOSCOPY,BLUE LIGHT CYSVIEW 12/24/2017 11:05 AM [facility] Malignant neoplasm of urinary bladder, unspecified site (HCC) Case Notes PER [facility] TO USE RM 1 Special Needs (CONSIDER SPINAL ANESTHESIA) after 10/05/2017 Results Tissue Exam (12/24/2017 11:50 AM [facility]) Case Report Surgical Pathology Report Case: [id number] [facility] Authorizing Provider:Osmel Enriquez MDCollected: 12/24/[address] [place] [address] CENTER Ordering Location: [facility] PERI[facility] Received: 12/24/2017 1341 SERVICES [...] URINARY BLADDER, LEFT NECK 2 O'CLOCK, TURBT: [facility] - PAPILLARY UROTHELIAL CARCINOMA, HIGH GRADE (WHO GRADE 3), [facility] - ADJACENT UROTHELIAL CARCINOMA IN SITU - [...] OR MALIGNANCY Signing Pathologist Direct Phone Line: [phone] CPT Code(s) 65133 X [phone] [facility] CLINICAL HISTORY Malignant neoplasm of [facility] urinary bladder [facility] SPECIMEN SOURCE A. Left bladder neck 2:00 [facility] biopsy; B. Posterior [facility] midline bladder [...] specimen is entirely submitted in cassette A1. [facility] Specimen B: Received in formalin labeled "posterior [...] submitted G1. DB/pl MICROSCOPIC DESCRIPTION A-G: Performed. [facility] Specimen Tissue - Bladder Tumor Performing Organization Address City/State/Zipcode Phone Number [facility] [address] [place] [address] CENTER after 10/05/2017 Insurance Payer Benefit Plan / Subscriber ID Type Phone Address Group [employer] - MEDICARE [employer] MEDICARE HMO xxxxxxxx [phone] [address] [place] [address] (Home) [place] [address] Advance Directives For more information, please contact:[facility] [place], [place] [phone] Code Status Date Activated Date Inactivated Comments Full Code 10/28/2016 5:33 PM 10/29/2016 6:01 PM This code status was determined by: Patient
[2018-10-06] MEDS ORDERED: MAGNESIUM CITRATE 300 ML BOT ONE (15:31)
--- NOTE | 2018-10-06 15:41 | RAD REPORT ---
EXAM DESCRIPTION: RAD - Abdomen Single View - 10/06/2018 3:35 pm CLINICAL HISTORY: Abdominal pain and constipation FINDINGS: The bowel gas pattern is unremarkable. Contrast from a recent CT scan is present throughou t colon. A large amount of stool is seen within the colon. Surgical clips present the pelvis
[2018-10-06] MEDS ORDERED: FLEET ENEMA ADULT PR ONE (16:11)
--- NOTE | 2018-10-06 16:56 | ER ---
Nurse's Notes [facility] Name: Jere Jensen Age: 88 yrs Sex: Male : 1930 Arrival Date: 10/06/2018 Time: 14:36 Bed 24 Private MD: Bolivar Velez C Diagnosis: Constipation Presentation: 10/06 14:57 Presenting complaint: states: Constipation since Wednesday. Only able to move small aj amount of stool with multiple OTC treatments. Transition of care: patient was not received from another setting of care. Onset of symptoms was October 02, 2018. Risk Assessment: Do you want to hurt yourself or someone else? Patient reports no desire to harm self or others. Initial Sepsis Screen: Does the patient meet any 2 criteria? No. Patient's initial sepsis screen is negative. Does the patient have a suspected source of infection? No. Patient's initial sepsis screen is negative. Care prior to arrival: None. 14:57 Method Of Arrival: Wheelchair aj 14:57 Acuity: IZA 3 aj Triage Assessment: 15:00 General: Appears in no apparent distress. comfortable, Behavior is calm, cooperative, aj appropriate for age. Pain: Denies pain. Neuro: Level of Consciousness is awake, alert, obeys commands, Oriented to person, place, time, situation, Appropriate for age. Respiratory: Airway is patent Respiratory effort is even, unlabored, Respiratory pattern is regular, symmetrical. GI: Reports constipation. Derm: Skin is intact, is healthy with good turgor, Skin is pink, warm \\T\\ dry. normal. Historical: - Allergies: 15:00 anesthesia meds; aj 15:00 Ciprofloxacin (rash); "like blisters on his feet" per son; aj 15:00 Codeine; aj 15:00 Milk/dairy products; aj - Home Meds: 15:00 amlodipine 2.5 mg tab 1 tab Take one tablet daily if SBP <170 [Active]; amoxicillin-pot aj clavulanate 875-125 mg Oral tab 1 tab every 12 hours [Active]; aspirin 325 mg Oral tab 1 tab once daily [Active]; Carbidopa-Levodopa Oral 2 times per day [Active]; fludrocortisone 0.1 mg Oral tab 1 tab once daily [Active]; famotidine 40 mg Oral tab 1 tab once daily [Active]; memantine 28 mg Oral once daily [Active]; Nuedexta 20-10 mg Oral cap 1 cap daily [Active]; Nuplazid Oral 2 tabs daily [Active]; simvastatin 20 mg Oral tab 1 tab bedtime [Active]; Vesicare 10 mg Oral tab 1 tab once daily [Active]; - PMHx: 15:00 Cancer; Hyperlipidemia; Hypertension; hypotension; TIA; Dementia; Parkinsons; aj - Immunization history:: Adult Immunizations up to date. - Social history:: Smoking status: Patient/guardian denies using tobacco. - Ebola Screening: : Patient negative for fever greater than or equal to 101.5 degrees Fahrenheit, and additional compatible Ebola Virus Disease symptoms Patient denies exposure to infectious person Patient denies travel to an Ebola-affected area in the 21 days before illness onset No symptoms or risks identified at this time. Screenin:04 Abuse screen: Denies threats or abuse. Denies injuries from another. Nutritional ed1 screening: No deficits noted. Tuberculosis screening: No symptoms or risk factors identified. Fall Risk None identified. Assessment: 15:05 General: Appears in no apparent distress. Behavior is calm, cooperative. GI: Abdomen is ed1 non-distended, Bowel sounds present X 4 quads. Abd is soft and non tender X 4 quads. Reports constipation. 15:35 Reassessment: Patient appears in no apparent distress at this time. I agree with above iw assessment by TONO Vallecillo. 17:20 Reassessment: Patient appears in no apparent distress at this time. Patient and/or ed1 family updated on plan of care and expected duration. Pain level reassessed. Patient is alert, oriented x 3, equal unlabored respirations, skin warm/dry/pink. Large BM noted. Vital Signs: 15:00 BP 152 / 76; Pulse 60; Resp 19; Temp 97.3; Pulse Ox 95% on R/A; Weight 90.72 kg; Height aj 5 ft. 10 in. (177.80 cm); 17:20 BP 137 / 80; Pulse 66; Resp 17; Temp 98.3(O); Pulse Ox 100% on R/A; Pain 0/10; ed1 15:00 Body Mass Index 28.70 (90.72 kg, 177.80 cm) ED Course: 14:36 Patient arrived in ED. mr 14:37 Bolivar Velez MD is Private Physician. mr 14:58 Triage completed. aj 15:00 Arm band placed on right wrist. Patient placed in an exam room. aj 15:03 Ruth Ann Sanchez LVN is Primary Nurse. ed1 15:04 Lydia Bradley FNP-C is PHCP. snw 15:04 Dennis Vences MD is Attending Physician. snw 15:04 Patient has correct armband on for positive identification. Bed in low position. Call ed1 light in reach. Side rails up X2. Adult w/ patient. 15:34 Abdomen 1 View XRAY In Process Unspecified. EDMS 16:55 Bolivar Velez MD is Referral Physician. snw 17:20 Cleaned of incontinence. ed1 17:20 No provider procedures requiring assistance completed. Patient did not have IV access ed1 during this emergency room visit. Administered Medications: 15:44 Drug: Magnesium Citrate Liquid 300 ml Route: PO; ed1 16:57 Follow up: Response: No adverse reaction; Other; Large BM ed1 16:05 Drug: Fleet Enema 133 ml Route: MN; ed1 16:57 Follow up: Response: No adverse reaction; No adverse reaction; Large BM ed1 Outcome: 16:55 Discharge ordered by MD. snw 17:20 Discharged to home via wheelchair, with family. ed1 17:20 Condition: good 17:20 Discharge instructions given to patient, family, Instructed on discharge instructions, follow up and referral plans. medication usage, Demonstrated understanding of instructions, follow-up care, medications, Prescriptions given X 1. 17:21 Patient left the ED. ed1 Signatures: Dispatcher [employer] Marcelina Perez, RN Lydia Alexandre FNP-C FNP-David Mariluz Ferrer Keesha Bryant, RN Ruth Ann Parsons LVN LVN ed1
--- NOTE | 2018-10-06 16:57 | EDPHYS ---
Physician Documentation [facility] Name: Jere Jensen Age: 88 yrs Sex: Male : 1930 Arrival Date: 10/06/2018 Time: 14:36 Bed 24 Private MD: Bolivar Velez C ED Physician Dennis Vences HPI: 10/06 15:16 This 88 yrs old Male presents to ER via Wheelchair with complaints of snw Constipation. 15:16 Onset: The symptoms/episode began/occurred acutely, and became persistent. Associated snw signs and symptoms: The patient has no apparent associated signs or symptoms. Modifying factors: The patient symptoms are alleviated by nothing, the patient symptoms are aggravated by nothing. It is unknown whether or not the patient has had similar symptoms in the past. The patient has been recently seen by a physician: The patient has been recently been admitted at [facility], was discharged earlier this week. Spouse has given OTC stool softeners, suppositories, and earlier today an enema. Pt without complaint of pain, discomfort, fever, vomiting. Historical: - Allergies: 15:00 anesthesia meds; aj 15:00 Ciprofloxacin (rash); "like blisters on his feet" per son; aj 15:00 Codeine; aj 15:00 Milk/dairy products; aj - Home Meds: 15:00 amlodipine 2.5 mg tab 1 tab Take one tablet daily if SBP <170 [Active]; amoxicillin-pot aj clavulanate 875-125 mg Oral tab 1 tab every 12 hours [Active]; aspirin 325 mg Oral tab 1 tab once daily [Active]; Carbidopa-Levodopa Oral 2 times per day [Active]; fludrocortisone 0.1 mg Oral tab 1 tab once daily [Active]; famotidine 40 mg Oral tab 1 tab once daily [Active]; memantine 28 mg Oral once daily [Active]; Nuedexta 20-10 mg Oral cap 1 cap daily [Active]; Nuplazid Oral 2 tabs daily [Active]; simvastatin 20 mg Oral tab 1 tab bedtime [Active]; Vesicare 10 mg Oral tab 1 tab once daily [Active]; - PMHx: 15:00 Cancer; Hyperlipidemia; Hypertension; hypotension; TIA; Dementia; Parkinsons; aj - Immunization history:: Adult Immunizations up to date. - Social history:: Smoking status: Patient/guardian denies using tobacco. - Ebola Screening: : Patient negative for fever greater than or equal to 101.5 degrees Fahrenheit, and additional compatible Ebola Virus Disease symptoms Patient denies exposure to infectious person Patient denies travel to an Ebola-affected area in the 21 days before illness onset No symptoms or risks identified at this time. ROS: 15:16 Constitutional: Negative for fever, chills, and weight loss, Eyes: Negative for injury, snw pain, redness, and discharge, ENT: Negative for injury, pain, and discharge, Neck: Negative for injury, pain, and swelling, Cardiovascular: Negative for chest pain, palpitations, and edema, Respiratory: Negative for shortness of breath, cough, wheezing, and pleuritic chest pain, Back: Negative for injury and pain, : Negative for injury, bleeding, discharge, and swelling, MS/Extremity: Negative for injury and deformity, Skin: Negative for injury, rash, and discoloration, Neuro: Negative for headache, weakness, numbness, tingling, and seizure. 15:16 Abdomen/GI: Positive for constipation, last BM on Wednesday (4 days ago). Exam: 15:15 Constitutional: This is a well developed, well nourished patient who is awake, alert, snw and in no acute distress. Head/Face: Normocephalic, atraumatic. Eyes: Pupils equal round and reactive to light, extra-ocular motions intact. Lids and lashes normal. Conjunctiva and sclera are non-icteric and not injected. Cornea within normal limits. Periorbital areas with no swelling, redness, or edema. ENT: Nares patent. No nasal discharge, no septal abnormalities noted. Tympanic membranes are normal and external auditory canals are clear. Oropharynx with no redness, swelling, or masses, exudates, or evidence of obstruction, uvula midline. Mucous membranes moist. Neck: Trachea midline, no thyromegaly or masses palpated, and no cervical lymphadenopathy. Supple, full range of motion without nuchal rigidity, or vertebral point tenderness. No Meningismus. Chest/axilla: Normal chest wall appearance and motion. Nontender with no deformity. No lesions are appreciated. Cardiovascular: Regular rate and rhythm with a normal S1 and S2. No gallops, murmurs, or rubs. Normal PMI, no JVD. No pulse deficits. Respiratory: Lungs have equal breath sounds bilaterally, clear to auscultation and percussion. No rales, rhonchi or wheezes noted. No increased work of breathing, no retractions or nasal flaring. Back: No spinal tenderness. No costovertebral tenderness. Full range of motion. Skin: Warm, dry with normal turgor. Normal color with no rashes, no lesions, and no evidence of cellulitis. MS/ Extremity: Pulses equal, no cyanosis. Neurovascular intact. Full, normal range of motion. Neuro: Awake and alert, GCS 15, oriented to person, place, time, and situation. Cranial nerves II-XII grossly intact. Motor strength 5/5 in all extremities. Sensory grossly intact. Cerebellar exam normal. Normal gait. Psych: Awake, alert, with orientation to person, place and time. Behavior, mood, and affect are within normal limits. 15:15 Abdomen/GI: Inspection: abdomen appears normal, Bowel sounds: normal, Palpation: abdomen is soft and non-tender, in all quadrants. Vital Signs: 15:00 BP 152 / 76; Pulse 60; Resp 19; Temp 97.3; Pulse Ox 95% on R/A; Weight 90.72 kg; Height aj 5 ft. 10 in. (177.80 cm); 17:20 BP 137 / 80; Pulse 66; Resp 17; Temp 98.3(O); Pulse Ox 100% on R/A; Pain 0/10; ed1 15:00 Body Mass Index 28.70 (90.72 kg, 177.80 cm) aj MDM: 15:06 Patient medically screened. snw 16:56 Data reviewed: vital signs, nurses notes, radiologic studies. Data interpreted: Pulse snw oximetry: on room air is 95 %. Interpretation: acceptable. Counseling: I had a detailed discussion with the patient and/or guardian regarding: the historical points, exam findings, and any diagnostic results supporting the discharge/admit diagnosis, radiology results, the need for outpatient follow up, to return to the emergency department if symptoms worsen or persist or if there are any questions or concerns that arise at home. Response to treatment: the patient's symptoms have markedly improved after treatment, and as a result, I will discharge patient. 10/06 15:15 Order name: Abdomen 1 View XRAY; Complete Time: 15:55 snw Administered Medications: 15:44 Drug: Magnesium Citrate Liquid 300 ml Route: PO; ed1 16:57 Follow up: Response: No adverse reaction; Other; Large BM ed1 16:05 Drug: Fleet Enema 133 ml Route: DE; ed1 16:57 Follow up: Response: No adverse reaction; No adverse reaction; Large BM ed1 Disposition: 18:59 Co-signature as Attending Physician, Dennis Vences MD I agree with the assessment and kdr plan of care. Disposition: 10/06/18 16:55 Discharged to Home. Impression: Constipation. - Condition is Stable. - Discharge Instructions: Constipation, Adult, Rehydration, Elderly. - Prescriptions for Miralax 17 gram/dose Oral - take 1 packet by ORAL route once daily dilute powder in 8 ounces of water or juice; 1 box. - Medication Reconciliation Form, Thank You Letter, Antibiotic Education, Prescription Opioid Use form. - Follow up: Bolivar Velez MD; When: 2 - 3 days; Reason: Recheck today's complaints, Continuance of care, Re-evaluation by your physician. Follow up: Emergency Department; When: As needed; Reason: Worsening of condition. Signatures: Dispatcher [employer] EDMS Marcelina Gould RN RN aj Rittger, Kevin, MD MD [facility] Lydia Bradley, EEG TECH-C EEG TECH-Csnw Ruth Ann Sanchez, SECURITY CLERK SECURITY CLERK ed1 Corrections: (The following items were deleted from the chart) 17:21 16:55 10/06/2018 16:55 Discharged to Home. Impression: Constipation. Condition is ed1 Stable. Forms are Medication Reconciliation Form, Thank You Letter, Antibiotic Education, Prescription Opioid Use. Follow up: Bolivar Velez; When: 2 - 3 days; Reason: Recheck today's complaints, Continuance of care, Re-evaluation by your physician. Follow up: Emergency Department; When: As needed; Reason: Worsening of condition. snw
[2018-10-06 17:50] VITALS: BP 137/80; TEMP 98.3; O2SAT 100
== END 2018-10-06 17:21 | disposition home or self-care (01) ==
LOC: ER 14:34
DX: K59.00 Constipation, unspecified (principal); I10 Essential (primary) hypertension; E78.5 Hyperlipidemia, unspecified; G20 Parkinson's disease; F02.80 Dementia in other diseases classified elsewhere, unspecified severity, without behavioral disturbance, psychotic disturbance, mood disturbance, and anxiety; Z79.82 Long term (current) use of aspirin; Z88.4 Allergy status to anesthetic agent; Z88.5 Allergy status to narcotic agent; Z88.8 Allergy status to other drugs, medicaments and biological substances; Z91.011 Allergy to milk products
CPT/HCPCS: 74018; 99284

== ENCOUNTER 2019-04-05 13:43 | Inpatient (IN) | payer OTHER ==
--- OUTSIDE RECORDS SUMMARY | 2019-04-05 13:45 | XMS REPORT | Clinical Summary ---
:1930 Author Organization [facility] Address [address] [place] [id number] Care Team Providers Name Role Phone Shaka Velez MD Primary Care Provider Allergies Active Allergy Reactions Severity Noted Date Comments Ciprofloxacin Rash Low 10/06/2016 Codeine Rash Low 10/06/2016 Medications Medication Sig Dispensed Refills Start Date End Date Status simvastatin (ZOCOR) 20 Take 20 mg by 0 Active MG tablet mouth nightly. dextromethorphan-quinidi Take 1 capsule 0 Active ne (NUEDEXTA) 20-10 mg by mouth once in Cap morning. memantine (NAMENDA XR) Take 1 capsule 0 Active 28 mg CSpX by mouth daily. aspirin 325 MG EC tablet Take 325 mg by 0 Active mouth daily. omega-3 fatty Take 1 capsule 0 Active acids-vitamin E 1,000 mg by mouth nightly Cap . cinnamon bark 500 mg Take 500 mg by 0 Active capsule mouth daily. cholecalciferol (VITAMIN Take 1,000 Units 0 Active D3) 1,000 unit tablet by mouth daily. VIT Take 1 capsule 0 Active C/E/ZN/COPPR/LUTEIN/ZEAX by mouth AN (PRESERVISION AREDS 2 nightly. ORAL) solifenacin (VESICARE) Take 10 mg by 0 Active 10 MG tablet mouth daily . midodrine (PROAMATINE) 5 Take 5 mg by 0 Active MG tablet mouth every evening. famotidine (PEPCID) 40 Take 40 mg by 0 Active MG tablet mouth daily. midodrine (PROAMATINE) Take 2.5 mg by 0 Active 2.5 MG tablet mouth 2 (two) times daily. 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 Last Filed Vital Signs Not on file Plan of Treatment Not on file Results Not on fileafter 04/04/2018 Insurance Payer Benefit Plan / Subscriber ID Type Phone Address Group [employer] - MEDICARE AETNA MEDICARE HMO xxxxxxxx [phone] [address] [employer]GD C[employer] POS [facility] [phone] ([address] [place] [address] Advance Directives For more information, please contact:[address] [phone] Code Status Date Activated Date Inactivated Comments Full Code 10/28/2016 5:33 PM 10/29/2016 6:01 PM This code status was determined by: Patient
--- OUTSIDE RECORDS SUMMARY | 2019-04-05 13:46 | XMS REPORT ---
:1930 [facility] Address [address] [place] [address] Dr. Lozano [address] [place] [address] Care Team Providers Name Role Phone JUAN FRANCISCO ENRIQUEZ Unavailable Unavailable Problems This patient has no known problems. Allergies, Adverse Reactions, Alerts This patient has no known allergies or adverse reactions. Medications This patient has no known medications. Results Test Description Test Time Test Comments Text Results Atomic Results Result Comments TISSUE EXAM 2017-12-27 15:21:00 Surgical Pathology Report Case: [id number] Authorizing Provider: Juan Francisco Enriquez MD Collected: 12/24/2017 1150 Ordering Location: [facility] Received: 12/24/2017 1341 SERVICES Pathologist: [...] OR MALIGNANCY Signing Pathologist Direct Phone Line: [phone] signed by Bayron Crystal MD on 12/27/2017 at 3:21 [id number] X 6, [id number] neoplasm of urinary bladderA. Left bladder neck [...] Value Reference Range Comments CULTURE (BEAKER) (test evwx=5094) See comment <10,000 col/mL Gram Negative Ro50-59,000 col/mL skin floraCOMPREHENSIVE METABOLIC [id number] 16:04:00 Test Item Value Reference Range Comments TOTAL PROTEIN (BEAKER) 7.4 gm/dL 6.0-8.3 (test dhrm=161) ALBUMIN (BEAKER) (test 3.9 g/dL 3.5-5.0 izcm=6846) ALKALINE PHOSPHATASE 76 U/L 40-150 (BEAKER) (test jrlr=594) BILIRUBIN TOTAL (BEAKER) 0.9 mg/dL 0.2-1.2 (test gdbs=046) SODIUM (BEAKER) (test 140 meq/L 136-145 prpi=609) POTASSIUM (BEAKER) (test 4.1 meq/L 3.5-5.1 nbny=814) CHLORIDE (BEAKER) (test 104 meq/L 98-107 xcfy=002) CO2 (BEAKER) (test 26 meq/L 22-29 oguk=178) BLOOD UREA NITROGEN 21 mg/dL 7-21 (BEAKER) (test ifee=186) CREATININE (BEAKER) (test 1.40 mg/dL 0.57-1.25 zcnm=978) GLUCOSE RANDOM (BEAKER) 147 mg/dL 70-105 (test bcmt=679) CALCIUM (BEAKER) (test 9.0 mg/dL 8.4-10.2 svuh=574) AST (SGOT) (BEAKER) (test 20 U/L 5-34 wksg=774) ALT (SGPT) (BEAKER) (test 16 U/L 6-55 swmi=082) EGFR (BEAKER) (test 48 mL/min/1.73 sq m ESTIMATED GFR IS NOT pdlm=9477) ACCURATE CREATININE CLEARANCE IN PREDICTING GLOMERULAR FILTRATION RATE. ESTIMATED GFR IS NOT APPLICABLE FOR DIALYSIS PATIENTS. CBC W/PLT COUNT & AUTO [id number] 15:55:00 Test Item Value Reference Range Comments WHITE BLOOD CELL COUNT (BEAKER) (test zkpm=709) 8.7 K/ L 4.0-10.0 RED BLOOD CELL COUNT (BEAKER) (test abrt=606) 4.86 M/ L 4.20-5.80 HEMOGLOBIN (BEAKER) (test dvdy=691) 15.2 GM/DL 13.0-16.8 HEMATOCRIT (BEAKER) (test tgmd=997) 45.2 % 40.0-50.0 MEAN CORPUSCULAR VOLUME (BEAKER) (test dcvv=100) 93.1 fL 82.0-98.0 MEAN CORPUSCULAR HEMOGLOBIN (BEAKER) (test 31.2 pg 27.0-33.0 nfms=215) MEAN CORPUSCULAR HEMOGLOBIN CONC (BEAKER) (test 33.5 GM/DL 32.0-36.0 rfqe=365) RED CELL DISTRIBUTION WIDTH (BEAKER) (test 12.3 % 10.3-14.2 qltm=626) PLATELET COUNT (BEAKER) (test pgss=840) 151 K/CU MM 150-430 MEAN PLATELET VOLUME (BEAKER) (test ychw=488) 7.0 fL 6.5-10.5 NUCLEATED RED BLOOD CELLS (BEAKER) (test 0 /100 WBC 0-0 ebbf=969) NEUTROPHILS RELATIVE PERCENT (BEAKER) (test 67 % hkbp=288) LYMPHOCYTES RELATIVE PERCENT (BEAKER) (test 22 % knoa=610) MONOCYTES RELATIVE PERCENT (BEAKER) (test 10 % wayj=406) EOSINOPHILS RELATIVE PERCENT (BEAKER) (test 1 % ezyq=027) BASOPHILS RELATIVE PERCENT (BEAKER) (test 0 % swju=493) NEUTROPHILS ABSOLUTE COUNT (BEAKER) (test 5.86 K/ L 1.80-8.00 trka=651) LYMPHOCYTES ABSOLUTE COUNT (BEAKER) (test 1.88 K/ L 1.48-4.50 lffq=872) MONOCYTES ABSOLUTE COUNT (BEAKER) (test 0.84 K/ L 0.00-1.30 zbxg=796) EOSINOPHILS ABSOLUTE COUNT (BEAKER) (test 0.12 K/ L 0.00-0.50 qqaf=906) BASOPHILS ABSOLUTE COUNT (BEAKER) (test 0.03 K/ L 0.00-0.20 yety=036) [id number] 15:54:00 Test Item Value Reference Range Comments PARTIAL THROMBOPLASTIN TIME (BEAKER) (test 32.3 seconds 22.5-36.0 oepm=781) PROTHROMBIN TIME/[id number] 15:53:00 Test Item Value Reference Range Comments PROTIME (BEAKER) (test olqo=587) 14.7 seconds 11.7-14.7 INR (BEAKER) (test ykxb=829) 1.2 <=5.9 RECOMMENDED COUMADIN/WARFARIN INR THERAPY RANGESSTANDARD DOSE: 2.0 - 3.0 Includes: PROPHYLAXIS forvenous thrombosis, systemic embolization; TREATMENT for venous thrombosis and/or pulmonary embolus.HIGH RISK: Target INR is 2.5-3.5 for patients with mechanical heart valves.URINALYSIS W/ [id number] 15 :40:00 Test Item Value Reference Range Comments COLOR (BEAKER) (test aanp=214) Yellow CLARITY (BEAKER) (test gnvg=901) Clear SPECIFIC GRAVITY UA (BEAKER) (test vczz=679) 1.017 1.001-1.035 PH UA (BEAKER) (test tvmi=230) 6.5 5.0-8.0 PROTEIN UA (BEAKER) (test mujc=931) Negative Negative GLUCOSE UA (BEAKER) (test yips=395) Negative Negative KETONES UA (BEAKER) (test lqkl=390) Negative Negative BILIRUBIN UA (BEAKER) (test innt=333) Negative Negative BLOOD UA (BEAKER) (test bhxl=482) Negative Negative NITRITE UA (BEAKER) (test efde=063) Negative Negative LEUKOCYTE ESTERASE UA (BEAKER) (test elld=509) Trace Negative UROBILINOGEN UA (BEAKER) (test znmi=986) 3.0 mg/dL 0.2-1.0 RBC UA (BEAKER) (test vkkx=982) 1 /HPF WBC UA (BEAKER) (test ukxw=065) 2 /HPF SQUAMOUS EPITHELIAL (BEAKER) (test dnla=252) < /HPF SOURCE(BEAKER) (test uhcb=7976)
--- NOTE | 2019-04-05 15:11 | RAD REPORT ---
EXAM DESCRIPTION: [facility] Single View04/05/2019 2:57 pm CLINICAL HISTORY: Fever COMPARISON: September 2018 FINDINGS: Minimal progression in left basilar opacities. Remaining lungs appear clear of acute infiltrate. The heart is normal size. Pleural calcifications IMPRESSION: Minimal progression in left basilar opacities may represent progressive pulmonary fibros is or pneumonitis/atypical pneumonia superimposed over chronic changes
[2019-04-05 16:14] LABS: Protime INR 1.19
[2019-04-05] MEDS ORDERED: CEFTRIAXONE/SWI 1gm 1 GM/10 ML SYR ONE (16:14)
[2019-04-05] MEDS ORDERED: NA CHLORIDE 0.9% 0 ML ONE (16:14)
[2019-04-05 16:15] LABS: Absolute Lymphocytes (CBC) 1.8 K/uL (0.7-4.9); Absolute Monocytes 0.6 K/uL (0.1-1.3); Absolute Neutrophil 8.6 K/uL (1.8-8.0); Basophils % 0.2 % (0-1.3); Eosinophils % 1.1 % (0-4.4); Hematocrit 41.1 % (39.6-49.0); Lymphocytes % 16.2 % (15.3-44.8); MPV 8.2 fL (7.6-11.3); Monocytes % 5.4 % (3.3-12.3); RBC Red Blood Cell Count 4.43 M/uL (4.33-5.43)
[2019-04-05] MEDS ORDERED: NA CHLORIDE 0.9% 1,000 ML ONE ×2 (16:15→21:33)
[2019-04-05 16:41] LABS: Albumin 3.5 g/dL (3.4-5.0); Bilirubin Direct 0.3 mg/dL (0-0.2); Bilirubin Total 1.3 mg/dL (0.2-1.0); Magnesium 2.4 mg/dL (1.8-2.4); Potassium 4.7 mmol/L (3.5-5.1); Protein, Total 7.5 g/dL (6.4-8.2); Troponin (Emerg Dept Use Only) 0.02 ng/mL (0.0-0.045)
[2019-04-05 16:48] LABS: Urine Blood TRACE (NEG); Urine Glucose NEGATIVE (NEG); Urine Protein NEGATIVE (NEG); Urine Specific Gravity 1.015 (1.005-1.030)
--- NOTE | 2019-04-05 17:15 | EDPHYS ---
Physician Documentation [facility] Name: Jere Jensen Age: 88 yrs Sex: Male : 1930 Arrival Date: 04/05/2019 Time: 13:45 Bed 7 Private MD: Bolivar Velez C ED Physician Petros Rodriguez HPI: 04/05 15:34 This 88 yrs old Male presents to ER via Wheelchair with complaints of Fever, lilia Diarrhea. 15:34 The patient reports fever, that was measured at 102 degrees Fahrenheit. Onset: The lilia symptoms/episode began/occurred last night. Modifying factors: there are no obvious modifying factors. Associated signs and symptoms: Pertinent positives: diarrhea. Severity of symptoms: At their worst the symptoms were mild in the emergency department the symptoms are unchanged. The patient has not experienced similar symptoms in the past. Historical: - Allergies: 13:59 anesthesia meds; aa5 13:59 Ciprofloxacin (rash); "like blisters on his feet" per son; aa5 13:59 Codeine; aa5 13:59 Milk/dairy products; aa5 - Home Meds: 18:55 amlodipine 2.5 mg tab 1 tab Take one tablet daily if SBP <170 [Active]; aspirin 325 mg ph Oral tab 1 tab once daily [Active]; Carbidopa-Levodopa Oral 2 times per day [Active]; famotidine 40 mg Oral tab 1 tab once daily [Active]; memantine 28 mg Oral once daily [Active]; simvastatin 20 mg Oral tab 1 tab bedtime [Active]; - PMHx: 13:59 Dementia; Hyperlipidemia; Hypertension; hypotension; Parkinsons; TIA; Bladder and aa5 Prostate Cancer; 18:55 Cancer; ph - Immunization history:: Adult Immunizations unknown, Flu vaccine is not up to date. - Ebola Screening: : No symptoms or risks identified at this time. - Family history:: not pertinent. - Social history:: Smoking status: Patient/guardian denies using tobacco. ROS: 15:34 Constitutional: Negative for fever, chills, and weight loss, Eyes: Negative for injury, lilia pain, redness, and discharge, ENT: Negative for injury, pain, and discharge, Neck: Negative for injury, pain, and swelling, Cardiovascular: Negative for chest pain, palpitations, and edema, Respiratory: Negative for shortness of breath, cough, wheezing, and pleuritic chest pain, Back: Negative for injury and pain, : Negative for injury, bleeding, discharge, and swelling, MS/Extremity: Negative for injury and deformity, Skin: Negative for injury, rash, and discoloration, Neuro: Negative for headache, weakness, numbness, tingling, and seizure, Psych: Negative for depression, anxiety, suicide ideation, homicidal ideation, and hallucinations, Allergy/Immunology: Negative for hives, rash, and allergies, Endocrine: Negative for neck swelling, polydipsia, polyuria, polyphagia, and marked weight changes, Hematologic/Lymphatic: Negative for swollen nodes, abnormal bleeding, and unusual bruising. 15:34 Abdomen/GI: Positive for diarrhea. Exam: 15:34 Constitutional: This is a well developed, well nourished patient who is awake, alert, lilia and in no acute distress. Head/Face: Normocephalic, atraumatic. Eyes: Pupils equal round and reactive to light, extra-ocular motions intact. Lids and lashes normal. Conjunctiva and sclera are non-icteric and not injected. Cornea within normal limits. Periorbital areas with no swelling, redness, or edema. ENT: Nares patent. No nasal discharge, no septal abnormalities noted. Tympanic membranes are normal and external auditory canals are clear. Oropharynx with no redness, swelling, or masses, exudates, or evidence of obstruction, uvula midline. Mucous membranes moist. Neck: Trachea midline, no thyromegaly or masses palpated, and no cervical lymphadenopathy. Supple, full range of motion without nuchal rigidity, or vertebral point tenderness. No Meningismus. Chest/axilla: Normal chest wall appearance and motion. Nontender with no deformity. No lesions are appreciated. Cardiovascular: Regular rate and rhythm with a normal S1 and S2. No gallops, murmurs, or rubs. Normal PMI, no JVD. No pulse deficits. Respiratory: Lungs have equal breath sounds bilaterally, clear to auscultation and percussion. No rales, rhonchi or wheezes noted. No increased work of breathing, no retractions or nasal flaring. Abdomen/GI: Soft, non-tender, with normal bowel sounds. No distension or tympany. No guarding or rebound. No evidence of tenderness throughout. Back: No spinal tenderness. No costovertebral tenderness. Full range of motion. Male : Normal genitalia with no discharge or lesions. Skin: Warm, dry with normal turgor. Normal color with no rashes, no lesions, and no evidence of cellulitis. MS/ Extremity: Pulses equal, no cyanosis. Neurovascular intact. Full, normal range of motion. Neuro: Awake and alert, GCS 15, oriented to person, place, time, and situation. Cranial nerves II-XII grossly intact. Motor strength 5/5 in all extremities. Sensory grossly intact. Cerebellar exam normal. Normal gait. Psych: Awake, alert, with orientation to person, place and time. Behavior, mood, and affect are within normal limits. Vital Signs: 13:56 BP 122 / 61; Pulse 60; Resp 16 S; Temp 98.7(O); Pulse Ox 91% on R/A; Pain 0/10; aa5 16:14 BP 127 / 64; Pulse 62; Resp 18; Pulse Ox 93% on R/A; ph 17:15 BP 137 / 68; Pulse 63; Resp 18; Pulse Ox 93% on R/A; ph 18:18 BP 170 / 69; Pulse 61; Resp 18; Pulse Ox 94% on R/A; ph MDM: 14:19 Patient medically screened. [facility] 15:37 Data reviewed: vital signs, nurses notes, lab test result(s), EKG, radiologic studies, lilia plain films. 04/05 14:23 Order name: Basic Metabolic Panel; Complete Time: 17:12 [facility] 04/05 14:23 Order name: CBC with Diff; Complete Time: 17:12 [facility] 04/05 14:23 Order name: LFT's; Complete Time: 17:12 [facility] 04/05 14:23 Order name: Magnesium; Complete Time: 17:12 [facility] 04/05 14:23 Order name: NT PRO-BNP; Complete Time: 17:12 [facility] 04/05 14:23 Order name: PT-INR; Complete Time: 17:12 [facility] 04/05 14:23 Order name: Troponin (emerg Dept Use Only); Complete Time: 17:12 [facility] 04/05 14:23 Order name: Stool Culture [facility] 04/05 14:23 Order name: Fecal Leukocyte Stain [facility] 04/05 14:23 Order name: CDIFF [facility] 04/05 14:23 Order name: Blood Culture Adult (2) 04/05 14:23 Order name: Lactate; Complete Time: 17:12 [facility] 04/05 14:23 Order name: Procalcitonin; Complete Time: 17:12 [facility] 04/05 14:23 Order name: Urine Culture 04/05 14:23 Order name: XRAY Chest (1 view); Complete Time: 15:47 [facility] 04/05 14:23 Order name: EKG; Complete Time: 14:25 [facility] 04/05 14:23 Order name: Cardiac monitoring; Complete Time: 15:54 [facility] 04/05 14:23 Order name: IV Saline Lock; Complete Time: 15:54 [facility] 04/05 14:23 Order name: Labs collected and sent; Complete Time: 15:55 [facility] 04/05 14:23 Order name: O2 Per Protocol; Complete Time: 15:55 [facility] 04/05 14:23 Order name: O2 Sat Monitoring; Complete Time: 15:55 [facility] 04/05 14:23 Order name: Urine Dipstick-Ancillary (obtain specimen); Complete Time: 15:54 [facility] 04/05 15:33 Order name: Flu; Complete Time: 17:12 [facility] 04/05 16:46 Order name: Urine Dipstick--Ancillary (enter results); Complete Time: 17:12 bd Administered Medications: 16:05 Drug: NS 0.9% 500 ml Route: IV; Rate: bolus; Site: right forearm; ph 16:40 Follow up: Response: No adverse reaction; IV Status: Completed infusion; IV Intake: ph 500ml 16:47 Drug: NS 0.9% 1000 ml Route: IV; Rate: 125 ml/hr; Site: right forearm; ph 18:17 Follow up: Response: No adverse reaction; IV Status: Infusion continued upon admission ph 17:30 Drug: Rocephin - (cefTRIAXone) 1 grams Route: IVPB; Infused Over: 30 mins; Site: right ph forearm; 18:16 Follow up: Response: No adverse reaction; IV Status: Completed infusion ph 18:13 Drug: Zithromax 500 mg Route: IVPB; Infused Over: 1 hrs; Site: right antecubital; ph 18:17 Follow up: Response: No adverse reaction; IV Status: Infusion continued upon admission ph Disposition: 04/05/19 17:15 Hospitalization ordered by Bolivar Velez for Inpatient Admission. Preliminary diagnosis are Fever, unspecified, Pneumonia due to other specified bacteria, Hypoxemia, Diarrhea, unspecified. - Bed requested for Telemetry/MedSurg (Inpatient). - Status is Inpatient Admission. ed1 - Condition is Fair. - Problem is new. - Symptoms have improved. UTI on Admission? No Signatures: Dispatcher [employer] EDNY Petros Rodriguez MD MD cha Williams, Irene RN RN iw Mary Holbrook RN RN aa5 Ruth Ann Sanchez RN RN ed1 Flaquita Gonzalez RN RN ph Corrections: (The following items were deleted from the chart) 18:06 17:15 Hospitalization Ordered by A Agustin VARELA for Inpatient Admission. Preliminary iw diagnosis is Fever, unspecified; Pneumonia due to other specified bacteria; Hypoxemia; Diarrhea, unspecified. Bed requested for Telemetry/MedSurg (Inpatient). Status is Inpatient Admission. Condition is Fair. Problem is new. Symptoms have improved. UTI on Admission? No. lilia 20:04 18:06 04/05/2019 17:15 Hospitalization Ordered by A Agustin VARELA for Inpatient Admission. ed1 Preliminary diagnosis is Fever, unspecified; Pneumonia due to other specified bacteria; Hypoxemia; Diarrhea, unspecified. Bed requested for Telemetry/MedSurg (Inpatient). Status is Inpatient Admission. Condition is Fair. Problem is new. Symptoms have improved. UTI on Admission? No. iw
--- NOTE | 2019-04-05 17:15 | ER ---
Nurse's Notes [facility] Name: Jere Jensen Age: 88 yrs Sex: Male : 1930 Arrival Date: 04/05/2019 Time: 13:45 Bed 7 Private MD: Bolivar Velez C Diagnosis: Fever, unspecified;Pneumonia due to other specified bacteria;Hypoxemia;Diarrhea, unspecified Presentation: 04/05 13:56 Presenting complaint: states: "he had a fever of 102.0 last night and I gave him aa5 Tylenol and he hasn't had the fever since then". Pt's states "He had diarrhea this morning but I always give him a laxative every morning for constipation". Transition of care: patient was not received from another setting of care. Onset of symptoms was April 05, 2019. Care prior to arrival: None. 13:56 Method Of Arrival: Wheelchair aa5 13:56 Acuity: IZA 3 aa5 13:56 Risk Assessment: Do you want to hurt yourself or someone else? Unable to obtain Other: aa5 Pt confused does not understand. 13:56 Initial Sepsis Screen: Does the patient meet any 2 criteria? No. Patient's initial aa5 sepsis screen is negative. Does the patient have a suspected source of infection? No. Patient's initial sepsis screen is negative. Historical: - Allergies: 13:59 anesthesia meds; aa5 13:59 Ciprofloxacin (rash); "like blisters on his feet" per son; aa5 13:59 Codeine; aa5 13:59 Milk/dairy products; aa5 - Home Meds: 18:55 amlodipine 2.5 mg tab 1 tab Take one tablet daily if SBP <170 [Active]; aspirin 325 mg ph Oral tab 1 tab once daily [Active]; Carbidopa-Levodopa Oral 2 times per day [Active]; famotidine 40 mg Oral tab 1 tab once daily [Active]; memantine 28 mg Oral once daily [Active]; simvastatin 20 mg Oral tab 1 tab bedtime [Active]; - PMHx: 13:59 Dementia; Hyperlipidemia; Hypertension; hypotension; Parkinsons; TIA; Bladder and aa5 Prostate Cancer; 18:55 Cancer; ph - Immunization history:: Adult Immunizations unknown, Flu vaccine is not up to date. - Ebola Screening: : No symptoms or risks identified at this time. - Family history:: not pertinent. - Social history:: Smoking status: Patient/guardian denies using tobacco. Screenin:12 Abuse screen: Denies threats or abuse. Denies injuries from another. Nutritional ph screening: No deficits noted. Tuberculosis screening: No symptoms or risk factors identified. Fall Risk No fall in past 12 months (0 pts). Secondary diagnosis (15 points) dementia, IV access (20 points). Ambulatory Aid- None/Bed Rest/Nurse Assist (0 pts). Gait- Normal/Bed Rest/Wheelchair (0 pts) Mental Status- Oriented to own ability (0 pts). Total Montoya Fall Scale indicates High Risk Score (45 or more points). Fall prevention measures have been instituted. Side Rails Up X 2 Placed Close to Nursing Station Frequent Obs/Assessments Occuring Family Present and informed to notify staff if the need to leave the bedside As available patient and family educated on Fall Prevention Program and Strategies. Assessment: 14:30 General: Appears in no apparent distress. comfortable, slender, well groomed, Behavior ph is calm, cooperative, appropriate for age, Reports fever for 12-24 hours. Pain: Denies pain. Neuro: Level of Consciousness is awake, alert, obeys commands, Oriented to person, place, Reports weakness in "all over". Cardiovascular: Capillary refill < 3 seconds in bilateral fingers Patient's skin is warm and dry. Respiratory: Airway is patent Respiratory effort is even, unlabored, Respiratory pattern is regular, symmetrical. GI: Abdomen is flat, non-distended, Bowel sounds present X 4 quads. Reports diarrhea, Patient currently denies abdominal pain, nausea, vomiting. : Denies burning with urination. Derm: Skin is intact, Skin is pink, warm \\T\\ dry. Musculoskeletal: Circulation, motion, and sensation intact. Range of motion: intact in all extremities. 15:45 Reassessment: Patient appears in no apparent distress at this time. Patient and/or ph family updated on plan of care and expected duration. Pain level reassessed. Patient is alert, oriented x 3, equal unlabored respirations, skin warm/dry/pink. 17:05 Reassessment: Patient appears in no apparent distress at this time. Patient and/or ph family updated on plan of care and expected duration. Pain level reassessed. Patient is alert, oriented x 3, equal unlabored respirations, skin warm/dry/pink. 18:15 Reassessment: Patient appears in no apparent distress at this time. No changes from ph previously documented assessment. Patient and/or family updated on plan of care and expected duration. Pain level reassessed. Patient is alert, oriented x 3, equal unlabored respirations, skin warm/dry/pink. Attempted to call report to 2nd floor, no nurse for room until after shift change. Vital Signs: 13:56 BP 122 / 61; Pulse 60; Resp 16 S; Temp 98.7(O); Pulse Ox 91% on R/A; Pain 0/10; aa5 16:14 BP 127 / 64; Pulse 62; Resp 18; Pulse Ox 93% on R/A; ph 17:15 BP 137 / 68; Pulse 63; Resp 18; Pulse Ox 93% on R/A; ph 18:18 BP 170 / 69; Pulse 61; Resp 18; Pulse Ox 94% on R/A; ph ED Course: 13:45 Patient arrived in ED. rg4 13:45 Bolivar Velez MD is Private Physician. rg4 13:56 Arm band placed on. aa5 13:58 Triage completed. aa5 14:19 Petros Rodriguez MD is Attending Physician. lilia 14:42 EKG done, by studio technician video operator. reviewed by Petros Rodriguez MD. 3 14:52 Flaquita Gonzalez RN is Primary Nurse. ph 14:58 XRAY Chest (1 view) In Process Unspecified. EDMS 15:35 Initial lab(s) drawn, by az, sent to lab. First set of blood cultures drawn. Inserted iw saline lock: 20 gauge in right forearm, using aseptic technique. Blood collected. 16:13 Patient has correct armband on for positive identification. Placed in gown. Bed in low ph position. Call light in reach. Side rails up X 1. cardiac monitor on. Pulse ox on. NIBP on. Door closed. Noise minimized. Warm blanket given. Head of bed elevated. 17:12 Bolivar Velez MD is Hospitalizing Provider. lilia 18:52 No provider procedures requiring assistance completed. Patient admitted, IV remains in ph place. 19:53 Primary Nurse role handed off by Flaquita Gonzalez, RN ed1 19:53 Sanchez, Ruth Ann, RN is Primary Nurse. ed1 Administered Medications: 16:05 Drug: NS 0.9% 500 ml Route: IV; Rate: bolus; Site: right forearm; ph 16:40 Follow up: Response: No adverse reaction; IV Status: Completed infusion; IV Intake: ph 500ml 16:47 Drug: NS 0.9% 1000 ml Route: IV; Rate: 125 ml/hr; Site: right forearm; ph 18:17 Follow up: Response: No adverse reaction; IV Status: Infusion continued upon admission ph 17:30 Drug: Rocephin - (cefTRIAXone) 1 grams Route: IVPB; Infused Over: 30 mins; Site: right ph forearm; 18:16 Follow up: Response: No adverse reaction; IV Status: Completed infusion ph 18:13 Drug: Zithromax 500 mg Route: IVPB; Infused Over: 1 hrs; Site: right antecubital; ph 18:17 Follow up: Response: No adverse reaction; IV Status: Infusion continued upon admission ph Intake: 16:40 IV: 500ml; Total: 500ml. ph Outcome: 17:15 Decision to Hospitalize by Provider. lilia 19:28 Condition: stable ak1 19:28 Instructed on the need for admit. 19:31 Admitted to Med/surg accompanied by tech, via stretcher, room 202, with chart, Report ak1 called to [facility] 20:04 Patient left the ED. ed1 Signatures: Dispatcher [employer] Petros Brown MD MD cha Williams, Irene, RN RN iw Calderon, Audri, RN RN aa5 Ruth Ann Sanchez RN RN ed1 Stacie Watson RN RN ak1 Hall, Patricia, RN RN ph Garcia, Rubi [facility] Francoise Dennis 3
[2019-04-05] MEDS ORDERED: AZITHROMYCIN IV 500 MG in NA CHLORIDE 0.9% 250 ML IVPB ONE (18:00)
[2019-04-05] MEDS ORDERED: ALBUTEROL 2.5 MG/3 ML NEB SOL NEB PRN (20:17)
[2019-04-05] MEDS ORDERED: ACETAMINOPHEN 500 MG TAB PO PRN (20:17)
[2019-04-05] MEDS ORDERED: IPRATROPIUM BROM 0.5MG/2.5ML NEB PRN (20:17)
[2019-04-05] MEDS ORDERED: CEFTRIAXONE 1 GM/NS 50 ML 1 GM/50 ML BAG IV SCH (21:00)
[2019-04-05] MEDS ORDERED: FAMOTIDINE 20 MG/2 ML VIAL IV SCH (21:00)
[2019-04-05] MEDS: NA CHLORIDE 0.9% 1,000 ML IV SCH (21:25)
[2019-04-05 21:49] VITALS: BMI 27.8
[2019-04-06 06:19] LABS: Absolute Lymphocytes (CBC) 1.6 K/uL (0.7-4.9); Absolute Monocytes 0.7 K/uL (0.1-1.3); Absolute Neutrophil 7.2 K/uL (1.8-8.0); Basophils % 0.1 % (0-1.3); Eosinophils % 1.2 % (0-4.4); Hematocrit 37.6 % (39.6-49.0); Lymphocytes % 16.5 % (15.3-44.8); MPV 8.7 fL (7.6-11.3); Monocytes % 7.6 % (3.3-12.3)
[2019-04-06] MEDS: NA CHLORIDE 0.9% 1,000 ML IV SCH (06:37)
[2019-04-06 06:39] LABS: Potassium 4.2 mmol/L (3.5-5.1)
[2019-04-06] MEDS ORDERED: NA CHLORIDE 0.9% 1,000 ML ONE (06:46)
[2019-04-06] MEDS ORDERED: KETOROLAC OPTHALMIC 5 ML BOT EACH EYE PRN (07:13)
[2019-04-06] MEDS: PIMAVANSERIN TARTRATE 34 MG PO SCH (09:00)
[2019-04-06] MEDS: NUEDEXTA PO SCH (09:00)
[2019-04-06] MEDS: DOCUSATE NA 100 MG CAP PO SCH (09:00)
[2019-04-06] MEDS: MEMANTINE HCL 28 MG PO SCH (09:00)
[2019-04-06] MEDS: LINACLOTIDE 290 MCG PO SCH (09:00)
[2019-04-06] MEDS: AZITHROMYCIN IV 500 MG in NA CHLORIDE 0.9% 250 ML IVPB SCH (10:39)
[2019-04-06] MEDS: CEFTRIAXONE/SWI 1gm 1 GM/10 ML SYR IV SCH ×2 (10:43→21:53)
[2019-04-06] MEDS: ASPIRIN EC 325 MG TABLET PO SCH (10:44)
[2019-04-06] MEDS: SOLIFENACIN SUCCIN 5 MG TAB PO SCH (10:44)
[2019-04-06] MEDS: MIDODRINE HCL 5 MG TABLET PO SCH ×3 (10:45→16:37)
[2019-04-06] MEDS: ENOXAPARIN 30 MG/0.3 ML SQ SCH (10:46)
[2019-04-06] MEDS: CARBIDOPA/LEVODOPA 25/100 TAB PO SCH ×2 (10:49→21:53)
--- NOTE | 2019-04-06 11:30 | EKG ---
Test Date: 2019-04-05 Test Time: 14:39:48 Meal Cooker: GILMAR MEASUREMENT RESULTS: Intervals: Rate: 59 [place]: 184 QRSD: 92 QT: 462 QTc: 457 [place]: P: 83 [place]: 184 QRS: 81 T: 68 INTERPRETIVE STATEMENTS: Sinus bradycardia Otherwise normal ECG Compared to ECG 10/03/2018 10:07:11 No significant changes Electronically Signed On 04-06-19 07:35:36 CDT by Fernando Suarez
--- NOTE | 2019-04-06 14:30 | EKG ---
Test Date: 2019-04-06 Test Time: 07:23:10 Automotive Hardware Engineer: HODA MEASUREMENT RESULTS: Intervals: Rate: 61 [place]: 182 QRSD: 90 QT: 448 QTc: 450 [place]: P: 84 [place]: 182 QRS: 68 T: 75 INTERPRETIVE STATEMENTS: Normal sinus rhythm Normal ECG Compared to ECG 04/05/2019 14:39:48 Sinus bradycardia no longer present Electronically Signed On 04-06-19 14:28:58 CDT by Devon Jason
--- NOTE | 2019-04-06 18:31 | RAD REPORT ---
EXAM DESCRIPTION: RAD - Chest Single View - 04/06/2019 11:51 am CLINICAL HISTORY: Chest Pain Chest pain. COMPARISON: Chest Single View dated 04/05/2019; Chest Single View dated 10/03/2018; Chest Single View dated 10/02/2018; Chest Single View dated 05/19/2018; Thorax Wo Con dated 04/06/2019 FINDINGS: Portable technique limits examination quality. Emphysematous changes are present throughout the lungs with hazy left basilar lung opacity noted, sli ghtly greater than on prior examinations. The bulk of this finding is probably related to chronic sca rring, however, a mild superimposed infiltrate is also possible in this region. Calcified pleural smitha quing is present bilaterally. The heart is mildly enlarged in size.
--- NOTE | 2019-04-06 18:42 | RAD REPORT ---
EXAM DESCRIPTION: CT - Thorax Wo Con CLINICAL HISTORY: Chest pain pneumonia COMPARISON: CTANGIO CHEST FOR PE dated 07/31/2007 FINDINGS: Advanced emphysematous changes are present throughout the lungs. Poorly defined opacities are present in the left lung base, the majority of which appear chronic however a mild superimposed p neumonia in this location is likely present. Calcified pleural plaques bilaterally are present likely related to previous asbestos exposure. No pneumothorax. No axillary, mediastinal or hilar adenopathy. No concerning bony finding. Small hiatal hernia is present. All CT scans are performed using dose optimization technique as appropriate and may include automated exposure control or mA/KV adjustment according to patient size. IMPRESSION: Emphysematous changes are present throughout the lungs.Mild posterior left basilar lung opacities likely represent superimposed pneumonia. Calcified pleural plaquing bilaterally most compatible with prior asbestos exposure.
[2019-04-06] MEDS: ATORVASTATIN 10 MG TAB PO SCH (21:53)
[2019-04-06] MEDS: FAMOTIDINE 20 MG TAB PO SCH (21:53)
--- NOTE | 2019-04-07 02:15 | PN ---
Date of Progress Note: 04/06/2019 Subjective: The patient was seen this morning for followup, lying in bed, not in distress. His son was present with him at bedside. The patient's son informed me that yesterday evening as patient was being brought from emergency room to medical floor his was walking with him and all of a sudden she lost her balance, fell down and had a head injury. She was evaluated in the ER, was diagnosed a s having intracranial bleed and she was transferred to [place]. The patient lives with his at [facility] and is the primary caregiver. The patient is entirely dependent on for all of his acti vities of daily life and he is not able to live by himself, so I did recommend the patient's family m ember this morning that it will be best for patient to go to fpc facility upon discharge from the hospital as will be expected to go to such facility as well when she gets released from hospital in [place]. Family is agreeable and I have advised them to communicate with Social Service . Objective: Vital Signs: Reviewed. HEENT: Unremarkable. Lungs: Bilateral good equal entry. Presence of rales noted in left lung base. Heart: Sounds normal. Abdomen: Soft. Bowel sounds normal. No guarding, rigidity, tenderness, or distention. Extremities: No leg edema. Laboratory Data: CAT scan of the chest done today showing emphysematous changes throughout both lung s, mild posterior left basilar lung opacity representing pneumonia, calcified pleural plaquing bilate rally most compatible with asbestos exposure. White count 9.7, hemoglobin 13.1, platelets 129. Sodi um 140, potassium 4.2, chloride 110, bicarb 25, BUN 22, creatinine 1.27, glucose 96. Impression: 1.Pneumonia. 2.Urinary tract infection. 3.Volume depletion. 4.Hypertension. 5.Depression. 6.Emphysema. Plan: We will continue current medication. We will have Physical Therapy start ambulating the patie nt. Continue current antibiotic, home medications. I will see him tomorrow for followup, and we freddy l get assistance from Social Service for fpc facility placement. DANIEL/MODL Voice ID: [id number] Report ID: [id number]
[2019-04-07] MEDS: CEFTRIAXONE/SWI 1gm 1 GM/10 ML SYR IV SCH ×2 (08:50→20:34)
[2019-04-07] MEDS: AZITHROMYCIN IV 500 MG in NA CHLORIDE 0.9% 250 ML IVPB SCH (08:50)
[2019-04-07] MEDS: PIMAVANSERIN TARTRATE 34 MG PO SCH (08:51)
[2019-04-07] MEDS: ENOXAPARIN 30 MG/0.3 ML SQ SCH (08:51)
[2019-04-07] MEDS: NUEDEXTA PO SCH (08:52)
[2019-04-07] MEDS: LINACLOTIDE 290 MCG PO SCH (08:53)
[2019-04-07] MEDS: SOLIFENACIN SUCCIN 5 MG TAB PO SCH (08:54)
[2019-04-07] MEDS: MEMANTINE HCL 28 MG PO SCH (08:54)
[2019-04-07] MEDS: ASPIRIN EC 325 MG TABLET PO SCH (08:55)
[2019-04-07] MEDS: DOCUSATE NA 100 MG CAP PO SCH (08:55)
[2019-04-07] MEDS: MIDODRINE HCL 5 MG TABLET PO SCH ×3 (08:56→17:13)
[2019-04-07] MEDS: CARBIDOPA/LEVODOPA 25/100 TAB PO SCH ×2 (09:00→20:34)
--- NOTE | 2019-04-07 09:12 | HP ---
Date of Admission: 04/05/2019 Chief Complaint: Fever, chills, and significant generalized weakness. History Of Present Illness: An 88-year-old male patient who was doing fine in his normal usual state of health until last night. All of a sudden, he had chills and then checked his temperature, i t was up to 102 degrees Fahrenheit. She gave him some Tylenol and the patient experienced significan t generalized weakness to the extent that he was not able to get up or walk around at all. She lam d ambulance. The EMS arrived and by that time, his temperature came down, so they did not bring him to emergency room. The patient did not have any more temperature spike like nighttime, but he contin ued to have significant generalized weakness, so called in the morning to my office with all the se details and she was advised to bring patient to the emergency room as I was concerned about infect ion and with his old age and debilitating condition, it will not be safe for him to stay at home and after he arrived to emergency room, he was evaluated and diagnosed as having pneumonia and admitted t o the [facility]. I saw him in the emergency room. and granddaughter were present with him at [facility]. Allergies: TO CIPRO, CODEINE, MILK CONTAINING PRODUCTS, AND ANESTHESIA MEDICATIONS. Medications: List reviewed. Review of Systems: Constitutional: As mentioned above. All other systems reviewed and negative. Social History: Negative for smoking, alcohol use. Family History: Not pertinent. Past Surgical History: Prostatectomy, right hip surgery, appendectomy, arthroscopic knee surgery, he rnia repair, bladder surgery for bladder cancer. Past Medical History: Significant for hypertension, bladder cancer, prostate cancer, hyperlipidemia, osteoarthritis at multiple sites, gastroesophageal reflux disease, restless legs syndrome, impaired fasting glucose, depression, lumbar spinal stenosis, cervical spinal stenosis, and orthostatic hypote nsion. Physical Examination: Vital Signs: When he first came into emergency room, temperature 98.7, pulse 60, respiratory rate 16 , blood pressure 122/61, oxygen saturation 91%. Height 5 feet 10 inches, weight 194 pounds. General: The patient has generalized weakness. No focal weakness. HEENT: Head atraumatic, normocephalic. Conjunctivae nonerythematous. Sclerae white. Mouth, no thr ush or edema noted. Ears/Nose, no mass, lesion, discharge noted. Neck: Supple. No JVD, lymph nodes, bruit, thyromegaly noted. Lungs: Bilateral good equal air entry. Presence of rales noted in lower lung roque. Not using acce ssory muscles of respiration. Heart: Normal heart sounds, no murmur or gallop. Abdomen: Soft, bowel sounds normal. No guarding, rigidity, tenderness, mass, hepatosplenomegaly, dis tention, or bruit noted. Extremities: No leg edema. No calf tenderness. Skin: No rash, ulcer, cellulitis. Lymphatics: No lymph node enlargement in neck, supraclavicular, infraclavicular region. Neuro: No focal neurological deficit. Chest: Unremarkable. External Genitalia: Deferred. Rectal: Deferred. Laboratory Data: White count 11.1, hemoglobin 13.7, platelets 136. INR 1.19. Sodium 138, potassium 4.7, chloride 105, bicarb 27, BUN 27, creatinine 1.52, glucose 101. Liver function tests unremarkab le except bilirubin 1.3. Troponin 0.02. Procalcitonin 0.35. Lactic acid 1.6. Urinalysis, trace le ukocyte esterase, otherwise negative. Chest x-ray, left basilar opacity. Impression: 1.Pneumonia. 2.Urinary tract infection. 3.Thrombocytopenia. 4.Volume depletion. 5.Orthostatic hypertension. 6.Depression. 7.Bladder cancer. 8.Prostate cancer. 9.Hyperlipidemia. 10.Hypertension. 11.Osteoarthritis, multiple sites. 12.Gastroesophageal reflux disease. 13.Restless legs syndrome. 14.Impaired fasting glucose. 15.Lumbar spinal stenosis. 16.Cervical spinal stenosis. Plan: Admit patient to hospital for further evaluation and management of this problem. The patient is appropriate for inpatient and is expected to spend 2 midnights in hospital. We will go ahead and continue home medications. Consult Physical Therapy. IV antibiotics will be given. I will see him tomorrow for followup and we will go ahead and consider doing CT scan of the chest tomorrow. Details and plan of treatment discussed with the patient and patient's who was present with him at [facility]. DANIEL/MODL Voice ID: [id number]
--- NOTE | 2019-04-07 17:06 | PN ---
Date of Progress Note: 04/07/2019 Subjective: The patient was seen this morning for followup. No new complaints or problems reported by patient lying in bed, not in any distress. His son was present with him at bedside. Yesterday, he did ambulate with physical therapy. Objective: Vital Signs: Reviewed HEENT: Examination unremarkable. Lungs: Bilateral good equal air entry. Presence of some rales noted in left lung base. Not using any accessory muscles of respiration. Heart: Sounds normal. Abdomen: Soft. Bowel sounds normal. No guarding, rigidity, tenderness or distention. Extremities: No leg edema. Laboratory Data: Reviewed. CAT scan of the chest without contrast done yesterday reviewed showing chronic fibrotic changes, emphysematous changes with some infiltrate in the left lung base and some pleural calcification indicating asbestosis. Impression: 1. Pneumonia. 2. Orthostatic hypotension. 3. Asbestosis. 4. Emphysema. Plan: We will continue current medications. Physical therapy to continue to work with the patient. The patient's son was made aware of CAT scan finding, and he did inform me that the patient was evaluated and diagnosed as having asbestosis in the past. At this point, we will continue current antibiotics. Social service to assist the patient with long-term facility placement and I will see him tomorrow for followup. DANIEL/MODL Voice ID: [id number] Report ID: [id number]
[2019-04-07] MEDS: ATORVASTATIN 10 MG TAB PO SCH (20:34)
[2019-04-07] MEDS: FAMOTIDINE 20 MG TAB PO SCH (20:34)
[2019-04-08] MEDS: MIDODRINE HCL 5 MG TABLET PO SCH ×3 (09:37→17:17)
[2019-04-08] MEDS: SOLIFENACIN SUCCIN 5 MG TAB PO SCH (09:37)
[2019-04-08] MEDS: LINACLOTIDE 290 MCG PO SCH (09:38)
[2019-04-08] MEDS: AZITHROMYCIN IV 500 MG in NA CHLORIDE 0.9% 250 ML IVPB SCH (09:38)
[2019-04-08] MEDS: ENOXAPARIN 30 MG/0.3 ML SQ SCH (09:38)
[2019-04-08] MEDS: ASPIRIN EC 325 MG TABLET PO SCH (09:38)
[2019-04-08] MEDS: PIMAVANSERIN TARTRATE 34 MG PO SCH (09:38)
[2019-04-08] MEDS: DOCUSATE NA 100 MG CAP PO SCH (09:38)
[2019-04-08] MEDS: CARBIDOPA/LEVODOPA 25/100 TAB PO SCH ×2 (09:38→20:31)
[2019-04-08] MEDS: CEFTRIAXONE/SWI 1gm 1 GM/10 ML SYR IV SCH ×2 (09:38→20:31)
[2019-04-08] MEDS: NUEDEXTA PO SCH (09:39)
[2019-04-08] MEDS: MEMANTINE HCL 28 MG PO SCH (09:39)
--- NOTE | 2019-04-08 12:00 | RAD REPORT ---
EXAM DESCRIPTION: RAD - Chest Pa And Lat (2 Views) - 04/08/2019 11:26 am CLINICAL HISTORY: pneumonia Chest pain. COMPARISON: Chest Single View dated 04/06/2019; Chest Single View dated 04/05/2019; Chest Single View dated 10/03/2018; Chest Single View dated 10/02/2018 FINDINGS: Emphysematous changes are present with posterior left lung base pneumonia again seen. Over all, mild improvement has occurred in the appearance of the infiltrate since comparative study. The h eart is mildly enlarged in size. No displaced fractures. IMPRESSION: Mild improvement is seen in posterior left base pneumonia since comparative chest radiog raph.
--- NOTE | 2019-04-08 13:04 | PN ---
Date of Progress Note: 04/08/2019 Subjective: The patient was seen this morning for followup. No new complaints or problems reported by patient. He was sitting in the chair. His grandchildren and son, they were present in room with him. He is ambulating with Physical Therapy. Denies any complaints. Objective: Vital Signs: Reviewed. HEENT: Unremarkable. Lungs: Clear to auscultation. No rhonchi. Some rales noted in left lung base, not using any access ory muscles of respiration. Heart: Sounds normal. Abdomen: Soft. Bowel sounds normal. No guarding, rigidity, tenderness, distention. Extremities: No leg edema. Laboratory Data: Chest x-ray will be done this morning. We will follow up on results. Impression: 1.Pneumonia. 2.Orthostatic hypotension. 3.Hypertension. Plan: We will go ahead and continue current medications. Repeat blood work tomorrow morning. We wi ll follow up on chest x-ray result. Continue current antibiotics. The patient seems to be improving well with current medications and Social Service is assisting the patient and family regarding skill ed nursing facility placement. Possible discharge on Wednesday, and details were discussed with family. DANIEL/MODL Voice ID: [id number] Report ID: [id number]
[2019-04-08] MEDS: FAMOTIDINE 20 MG TAB PO SCH (20:30)
[2019-04-08] MEDS: ATORVASTATIN 10 MG TAB PO SCH (20:31)
[2019-04-09 06:09] LABS: Absolute Lymphocytes (CBC) 1.7 K/uL (0.7-4.9); Absolute Monocytes 0.8 K/uL (0.1-1.3); Absolute Neutrophil 5.5 K/uL (1.8-8.0); Basophils % 0.4 % (0-1.3); Eosinophils % 2.5 % (0-4.4); Hematocrit 37.4 % (39.6-49.0); MPV 8.3 fL (7.6-11.3); Monocytes % 10.3 % (3.3-12.3); RBC Red Blood Cell Count 4.12 M/uL (4.33-5.43)
[2019-04-09 06:11] LABS: Magnesium 2.1 mg/dL (1.8-2.4); Potassium 3.9 mmol/L (3.5-5.1)
[2019-04-09] MEDS: DOCUSATE NA 100 MG CAP PO SCH (09:00)
[2019-04-09] MEDS: ASPIRIN EC 325 MG TABLET PO SCH (09:00)
[2019-04-09] MEDS: LINACLOTIDE 290 MCG PO SCH (09:00)
[2019-04-09] MEDS: PIMAVANSERIN TARTRATE 34 MG PO SCH ×2 (09:00→12:04)
[2019-04-09] MEDS: SOLIFENACIN SUCCIN 5 MG TAB PO SCH (09:01)
[2019-04-09] MEDS: CARBIDOPA/LEVODOPA 25/100 TAB PO SCH ×2 (09:02→21:31)
[2019-04-09] MEDS: MEMANTINE HCL 28 MG PO SCH (09:03)
[2019-04-09] MEDS: NUEDEXTA PO SCH (09:04)
[2019-04-09] MEDS: ENOXAPARIN 30 MG/0.3 ML SQ SCH (09:04)
[2019-04-09] MEDS: CEFTRIAXONE/SWI 1gm 1 GM/10 ML SYR IV SCH ×2 (09:04→21:31)
[2019-04-09] MEDS: MIDODRINE HCL 5 MG TABLET PO SCH ×3 (09:07→16:53)
[2019-04-09] MEDS: AZITHROMYCIN IV 500 MG in NA CHLORIDE 0.9% 250 ML IVPB SCH (10:10)
--- NOTE | 2019-04-09 20:08 | PN ---
Date of Progress Note: 04/09/2019 Subjective: The patient was seen this morning for followup. No new complaints or problems reported by the patient. He was lying in bed, not in distress. His , son, and grandchildren were present with him at bedside. Objective: Vital Signs: Reviewed. HEENT: Unremarkable. Lungs: Clear to auscultation. No rhonchi. No rales. Heart: Sounds normal. Abdomen: Soft. Bowel sounds normal. No guarding, rigidity, tenderness, or distention. Extremities: No leg edema. Laboratory Data: White count 8.3, hemoglobin 12.9, platelets 167. Sodium 141, potassium 3.9, chlori de 108, bicarb 26, BUN 24, glucose 99. Chest x-ray from yesterday shows improvement in pneumonia. Impression: 1.Pneumonia. 2.Hypertension. 3.Orthostatic hypotension. Plan: We will go ahead and give amlodipine 2.5 mg p.o. x1 dose as blood pressure was elevated this m orning; the patient uses at home on a p.r.n. basis. We will continue current antibiotic. Pneumonia seems to be improving well. We will go ahead and possibly consider to discharge to go to skilled [facility] ([place], [place]) facility tomorrow if arrangements get completed by Social Service for the patient to do so. DANIEL/MODL Voice ID: [id number] Report ID: [id number]
[2019-04-09] MEDS: ATORVASTATIN 10 MG TAB PO SCH (21:30)
[2019-04-09] MEDS: FAMOTIDINE 20 MG TAB PO SCH (21:30)
[2019-04-10] MEDS: MEMANTINE HCL 28 MG PO SCH (09:00)
[2019-04-10] MEDS: MIDODRINE HCL 5 MG TABLET PO SCH ×3 (09:00→16:43)
[2019-04-10] MEDS: LINACLOTIDE 290 MCG PO SCH (09:00)
[2019-04-10] MEDS: PIMAVANSERIN TARTRATE 34 MG PO SCH (09:00)
[2019-04-10] MEDS: AMLODIPINE 2.5 MG TAB PO PRN (09:33)
[2019-04-10] MEDS: ASPIRIN EC 325 MG TABLET PO SCH (09:35)
[2019-04-10] MEDS: CEFTRIAXONE/SWI 1gm 1 GM/10 ML SYR IV SCH ×2 (09:35→20:25)
[2019-04-10] MEDS: SOLIFENACIN SUCCIN 5 MG TAB PO SCH (09:35)
[2019-04-10] MEDS: DOCUSATE NA 100 MG CAP PO SCH (09:35)
[2019-04-10] MEDS: CARBIDOPA/LEVODOPA 25/100 TAB PO SCH ×2 (09:36→20:24)
[2019-04-10] MEDS: ENOXAPARIN 30 MG/0.3 ML SQ SCH (09:36)
[2019-04-10] MEDS: NUEDEXTA PO SCH (09:38)
[2019-04-10] MEDS: AZITHROMYCIN IV 500 MG in NA CHLORIDE 0.9% 250 ML IVPB SCH (09:43)
[2019-04-10] MEDS: FAMOTIDINE 20 MG TAB PO SCH (20:23)
[2019-04-10] MEDS: ATORVASTATIN 10 MG TAB PO SCH (20:24)
--- NOTE | 2019-04-10 22:33 | PN ---
Date of Progress Note: 04/10/2019 Subjective: The patient was seen this morning for followup. No new complaints or problems reported by the patient. He was lying in bed, not in any distress. Objective: Vital Signs: Reviewed. HEENT: Unremarkable. Lungs: Clear to auscultation. Heart: Sounds normal. Abdomen: Soft. Bowel sounds normal. No guarding, rigidity, tenderness, distention. Extremities: No leg edema. Labs: Reviewed. Impression: 1.Pneumonia. 2.Generalized weakness. 3.Debility. 4.Orthostatic hypotension. 5.Hypertension. Plan: We will continue current antibiotic. Discharge order was written today for the patient to go to care home once arrangements gets completed by Social Service for him to go to custodial f acility, but as I understand as of this evening, we have not been able to send him to care home be cause insurance has not given us any approval on that yet. DANIEL/MODL Voice ID: [id number] Report ID: [id number]
[2019-04-11] MEDS: MIDODRINE HCL 5 MG TABLET PO SCH ×3 (09:00→17:00)
[2019-04-11] MEDS: LINACLOTIDE 290 MCG PO SCH (09:00)
[2019-04-11] MEDS: PIMAVANSERIN TARTRATE 34 MG PO SCH ×2 (09:00→12:01)
[2019-04-11] MEDS: MEMANTINE HCL 28 MG PO SCH ×2 (09:00→17:00)
[2019-04-11] MEDS: AZITHROMYCIN IV 500 MG in NA CHLORIDE 0.9% 250 ML IVPB SCH (09:21)
[2019-04-11] MEDS: SOLIFENACIN SUCCIN 5 MG TAB PO SCH (09:21)
[2019-04-11] MEDS: DOCUSATE NA 100 MG CAP PO SCH (09:22)
[2019-04-11] MEDS: ENOXAPARIN 30 MG/0.3 ML SQ SCH (09:22)
[2019-04-11] MEDS: ASPIRIN EC 325 MG TABLET PO SCH (09:22)
[2019-04-11] MEDS: CEFTRIAXONE/SWI 1gm 1 GM/10 ML SYR IV SCH ×2 (09:23→20:13)
[2019-04-11] MEDS: NUEDEXTA PO SCH (09:23)
[2019-04-11] MEDS: CARBIDOPA/LEVODOPA 25/100 TAB PO SCH ×2 (09:27→20:12)
[2019-04-11] MEDS: FAMOTIDINE 20 MG TAB PO SCH (20:12)
[2019-04-11] MEDS: ATORVASTATIN 10 MG TAB PO SCH (20:12)
--- NOTE | 2019-04-11 20:22 | PN ---
Date of Progress Note: 04/11/2019 Subjective: The patient was seen this morning for followup. He was lying in bed, not in any distres s. His family members were present with him at bedside. Objective: Vital Signs: Reviewed. HEENT Examination: Unremarkable. Lungs: Clear to auscultation. Heart: Sounds normal. Abdomen: Soft. Bowel sounds normal. No guarding, rigidity, tenderness, or distention. Extremities: No leg edema. Impression: 1.Pneumonia. 2.Generalized weakness. 3.Debility. 4.Orthostatic hypotension. Plan: We will continue current medication. I have written discharge order as of yesterday for patiarleen nt to go to detention facility, but unfortunately we still have not obtained any approval from insurance company and Social Service is working on it. As soon as we get approval, the patient is me dically stable for discharge to go to detention facility. DANIEL/MODL Voice ID: [id number] Report ID: [id number]
[2019-04-12] MEDS: LINACLOTIDE 290 MCG PO SCH ×2 (09:00→17:17)
[2019-04-12] MEDS: MIDODRINE HCL 5 MG TABLET PO SCH ×4 (09:00→16:57)
[2019-04-12] MEDS: CARBIDOPA/LEVODOPA 25/100 TAB PO SCH ×2 (09:00→20:03)
[2019-04-12] MEDS: AZITHROMYCIN IV 500 MG in NA CHLORIDE 0.9% 250 ML IVPB SCH (09:00)
[2019-04-12] MEDS: ENOXAPARIN 30 MG/0.3 ML SQ SCH (09:01)
[2019-04-12] MEDS: DOCUSATE NA 100 MG CAP PO SCH (09:02)
[2019-04-12] MEDS: CEFTRIAXONE/SWI 1gm 1 GM/10 ML SYR IV SCH ×2 (09:02→20:03)
[2019-04-12] MEDS: SOLIFENACIN SUCCIN 5 MG TAB PO SCH (09:02)
[2019-04-12] MEDS: ASPIRIN EC 325 MG TABLET PO SCH (09:02)
[2019-04-12] MEDS: NUEDEXTA PO SCH (09:03)
[2019-04-12] MEDS: PIMAVANSERIN TARTRATE 34 MG PO SCH (12:28)
[2019-04-12] MEDS: AMLODIPINE 2.5 MG TAB PO PRN (15:12)
[2019-04-12] MEDS: MEMANTINE HCL 28 MG PO SCH (17:18)
[2019-04-12] MEDS: ATORVASTATIN 10 MG TAB PO SCH (20:03)
[2019-04-12] MEDS: FAMOTIDINE 20 MG TAB PO SCH (20:03)
--- NOTE | 2019-04-13 00:13 | PN ---
Date of Progress Note: 04/12/2019 Subjective: The patient was seen this morning for followup. No new complaints, problems reported by the patient. He was lying in bed, not in distress. Objective: Vital Signs: Reviewed. HEENT: Unremarkable. Lungs: Clear to auscultation. Heart: Sounds normal. Abdomen: Soft. Bowel sounds normal. No guarding, rigidity, tenderness, distention. Extremities: No leg edema. Impression: 1.Pneumonia. 2.Debility. 3.Generalized weakness. 4.Orthostatic hypotension. 5.Hypertension. 6.Depression. Plan: We will continue current medications, continue current antibiotics. We are still waiting on i nsurance approval for the patient to go to [facility] facility. Once that happens, we will be a ble to discharge him. He is medically stable for discharge. Continue other current medical manageme nt. DANIEL/MODL Voice ID: [id number] Report ID: [id number]
[2019-04-13] MEDS: AMLODIPINE 2.5 MG TAB PO PRN (01:13)
[2019-04-13 05:31] VITALS: O2SAT 96
[2019-04-13 06:03] LABS: Absolute Lymphocytes (CBC) 2.2 K/uL (0.7-4.9); Absolute Monocytes 0.7 K/uL (0.1-1.3); Basophils % 0.6 % (0-1.3); Eosinophils % 2.8 % (0-4.4); Hematocrit 39.1 % (39.6-49.0); Lymphocytes % 31.4 % (15.3-44.8); MPV 7.7 fL (7.6-11.3); Monocytes % 9.6 % (3.3-12.3); RBC Red Blood Cell Count 4.32 M/uL (4.33-5.43)
[2019-04-13 06:20] LABS: Magnesium 2.1 mg/dL (1.8-2.4); Potassium 3.9 mmol/L (3.5-5.1)
[2019-04-13] MEDS: CEFTRIAXONE/SWI 1gm 1 GM/10 ML SYR IV SCH (09:00)
[2019-04-13] MEDS: ASPIRIN EC 325 MG TABLET PO SCH (09:43)
[2019-04-13] MEDS: DOCUSATE NA 100 MG CAP PO SCH (09:43)
[2019-04-13] MEDS: SOLIFENACIN SUCCIN 5 MG TAB PO SCH (09:43)
[2019-04-13] MEDS: CARBIDOPA/LEVODOPA 25/100 TAB PO SCH (09:43)
[2019-04-13] MEDS: MIDODRINE HCL 5 MG TABLET PO SCH ×2 (09:43→12:00)
[2019-04-13] MEDS: AZITHROMYCIN IV 500 MG in NA CHLORIDE 0.9% 250 ML IVPB SCH (09:44)
[2019-04-13] MEDS: ENOXAPARIN 30 MG/0.3 ML SQ SCH (09:44)
[2019-04-13] MEDS: NUEDEXTA PO SCH (09:45)
[2019-04-13] MEDS: LINACLOTIDE 290 MCG PO SCH (09:46)
[2019-04-13] MEDS: PIMAVANSERIN TARTRATE 34 MG PO SCH (12:00)
[2019-04-13 16:15] VITALS: BP 119/57; TEMP 97.7
== END 2019-04-13 13:30 | DRG 195 ==
LOC: ER 13:43 → 2ND 19:47
PROVIDERS: ADMIT Internal Medicine; ATTEND Internal Medicine
DX: J18.9 Pneumonia, unspecified organism (principal); I95.1 Orthostatic hypotension; D69.6 Thrombocytopenia, unspecified; E86.9 Volume depletion, unspecified; J43.9 Emphysema, unspecified; J61 Pneumoconiosis due to asbestos and other mineral fibers; I10 Essential (primary) hypertension; E78.5 Hyperlipidemia, unspecified; M19.90 Unspecified osteoarthritis, unspecified site; K21.9 Gastro-esophageal reflux disease without esophagitis; G25.81 Restless legs syndrome; F32.9 Major depressive disorder, single episode, unspecified; M48.061 Spinal stenosis, lumbar region without neurogenic claudication; R53.81 Other malaise; M48.02 Spinal stenosis, cervical region; Z85.46 Personal history of malignant neoplasm of prostate; Z85.51 Personal history of malignant neoplasm of bladder
CPT/HCPCS: 36415; 71045; 71046; 71250; 80048; 80076; 81003; 83605; 83735; 83880; 84145; 84484; 85025; 85610; 87040; 87045; 87046; 87086; 87088; 87493; 87804; 93005; 94760; 96361; 96365; 96375; 97116; 97163; 97530; 99285; J0456; J0696; J1650; J7030